=== PATIENT | female | born 1940 | race Caucasian/White ===

== ENCOUNTER 2023-05-23 12:18 | Inpatient (IN) | payer MEDICARE, OTHER, SELFPAY ==
[2023-05-23] VITALS (44 sets, daily range): BP systolic 79–132; BP diastolic 54–79; PULSE 74–98; RESP 16–44; TEMP 36–36.7; O2SAT 80–96; BMI 25.8; BMI 32.0
--- NOTE | 2023-05-23 12:31 | PC.NURSE ---
pt O2 80% on RA pt placed on 4L O2 per NC pt up92%
--- NOTE | 2023-05-23 12:37 | ECG_ITS ---
The [facility] Test Date: 2023-05-23 Pat Name: Regine Garza Department: Room: - Gender: Female Manager [place]: : 1940 Requested By: DEMARCO NORTON Order Number: [id number] Reading MD: DEMARCO NORTON Measurements Intervals [place] Rate: 85 P: 51 [place]: 136 QRS: 50 QRSD: 94 T: 10 QT: 368 QTc: 410 Interpretive Statements 1100 Sinus rhythm 1102 Sinus arrhythmia 4068 Nonspecific Twave abnormality 9130 borderline ECG No previous ECG available for comparison Electronically Signed On 05-24-2023 7:02:53 EST by DEMARCO NORTON
--- NOTE | 2023-05-23 12:37 | CT_ITS ---
The [address] [address] Patient Name: YUMI DREW MRN: [id number] date: 1940 Sex: F Assigned Patient Location: ER Current Patient Location: ER Accession/Order Number: [id number] Exam Date: 05/23/2023 13:40 Report Date: 05/23/2023 14:18 At the request of: ADAMARIS PATEL Procedure: CT head/brain wo con EXAM: CT head/brain wo con HISTORY: Fall with weakness. Unable to emboli. Coughing and wheezing. COMPARISON: None. TECHNIQUE: Contiguous transaxial images were obtained from skull base to vertex without administration of intravenous contrast. Dose reduction: mA and/or kV are were adjusted by automated exposure control software based upon patients height and weight. FINDINGS: There is no focal scalp soft tissue swelling or acute calvarial fracture. The visualized globes and orbits are grossly normal. There is extensive paranasal sinus disease with mucosal thickening, opacification of ethmoid air cells and sphenoid sinus, and sphenoid sinus air-fluid level. There is partial opacification of left mastoid air cells. Right mastoid air cells are clear. The ventricles and sulci are mildly prominent bilaterally. There is a binu cisterna magna. There is periventricular and deep subcortical white matter low-attenuation consistent with small vessel ischemic disease. There is a focus of encephalomalacia at the left posterior parietal lobe. There is also a small focus of left frontal lobe hypoattenuation/encephalomalacia. There is no intraparenchymal hemorrhage, extraaxial fluid collection, mass lesion, or acute large territory ischemia by noncontrast CT. CT/CT head/brain wo con IMPRESSION: 1. No acute intracranial hemorrhage. 2. 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 3. Small focus of of encephalomalacia at the left posterior parietal lobe. There is also a small focus of hypoattenuation/encephalomalacia at the left frontal lobe. Acute ischemia/extension of ischemia at site of encephalomalacia cannot be excluded by noncontrast CT. If clinically indicated, brain MRI may be performed for further evaluation. Correlate with clinical history and physical examination. If the patient has a focal neurologic deficit or there is clinical suspicion for acute cerebrovascular accident, brain MRI would be recommended for further evaluation. Electronically authenticated by: WILD ELLISON Date: 05/23/2023 14:18
--- NOTE | 2023-05-23 12:37 | XR_ITS ---
The [address] [address] Patient Name: YUMI DREW MRN: [id number] date: 1940 Sex: F Assigned Patient Location: ER Current Patient Location: ER Accession/Order Number: [id number] Exam Date: 05/23/2023 13:32 Report Date: 05/23/2023 14:25 At the request of: ADAMARIS PATEL Procedure: XR chest 1V EXAMINATION: XR chest 1V HISTORY: sob , coughing, wheezing COMPARISON: No relevant comparison available. FINDINGS: LUNGS: Dense confluent opacities within lateral left lung base. Mild opacities and stranding within right infrahilar region. VASCULATURE: No increased pulmonary vasculature. PLEURA: No pneumothorax, effusion, or pleural thickening. CARDIAC: No cardiomegaly or cardiac silhouette abnormality. MEDIASTINUM: No visible mass or adenopathy. BONES: No fracture or visible bone lesion. OTHER: Negative. XR/XR chest 1V IMPRESSION: 1. Mild-moderate left basilar infiltrates suggestive of pneumonia. Pleural effusion cannot be excluded. 2. Trace amount of right basilar infiltrates. Electronically authenticated by: HAROON MANLEY Date: 05/23/2023 14:25
--- NOTE | 2023-05-23 13:04 | ECG_ITS ---
The [facility] Test Date: 2023-05-23 Pat Name: Regine Garza Department: Room: - Gender: Female [employer]: : 1940 Requested By: DEMARCO NORTON Order Number: [id number] Reading MD: DEMARCO NORTON Measurements Intervals [place] Rate: 86 P: 50 [place]: 134 QRS: 56 QRSD: 92 T: 20 QT: 370 QTc: 413 Interpretive Statements 1100 Sinus rhythm 1102 Sinus arrhythmia 4068 Nonspecific Twave abnormality 9130 borderline ECG Compared to ECG 05/23/2023 12:35:30 No significant changes Electronically Signed On 05-24-2023 7:05:59 EST by DEMARCO NORTON
--- NOTE | 2023-05-23 13:12 | ED_ITS ---
Documented by User: VERA Villegas 05/23/23 14:57 HPI - General Adult General Chief complaint: Weakness Stated complaint: SHORTNESS OF BREATH/ GENERAL WEAKNESS Time Seen by Provider: 05/23/23 12:37 Mode of arrival: ambulance History of Present Illness HPI narrative: Patient is an 82-year-old female who presents to the emergency department for the evaluation of generalized weakness that began this morning on waking. She states on waking today, she did not feel as though she could get up and ambulate, she felt weak in her legs. She denies dizziness, lightheadedness, syncope. She had a fall last week after she tripped, she denies any dizziness or syncope without fall. She sustained a small area of bruising to the right groin, she denies any pain or injuries from the fall, she has been able to ambulate since that time. She denies chest pain, shortness of breath today. On EMS arrival, they noted that the patient was coughing and wheezing and they started her on oxygen by nasal cannula and a breathing treatment. Patient is resting comfortably with her eyes closed at initial interview, she has no complaints of pain, nausea. She states she has been eating and drinking without difficulty. She has not had any urinary symptoms. She takes an 81 mg aspirin daily, no other blood thinners. She denies headaches, visual changes, peripheral paresthesias. She states her legs have been swollen. Related Data Home Medications Medication Instructions Recorded Confirmed aspirin 81 mg tablet,delayed 81 mg PO DAILY 05/23/23 05/23/23 release (Adult Aspirin Regimen) atorvastatin 10 mg tablet 10 mg PO .evening 05/23/23 05/23/23 benazepril 10 mg tablet 10 mg PO DAILY 05/23/23 05/23/23 brimonidine 0.2 %-timolol 0.5 % drp ophthalmic (eye) 05/23/23 eye drops dorzolamide 2 % eye drops drp ophthalmic (eye) 05/23/23 latanoprost 0.005 % eye drops drp ophthalmic (eye) 05/23/23 Allergies Allergy/AdvReac Type Severity Reaction Status Date / Time No Known Drug Allergies Allergy Verified 05/23/23 12:34 Review of Systems ROS Constitutional Denies: fever or chills Ears, nose, mouth, and throat Denies: throat pain or nasal congestion Cardiovascular Reports: swelling of feet/ankles; Denies: chest pain Respiratory Reports: cough and wheezing; Denies: shortness of breath Gastrointestinal Denies: abdominal pain, nausea or vomiting Genitourinary Denies: painful urination Musculoskeletal Reports: extremity swelling; Denies: back pain, neck pain or extremity pain Integumentary/Breast Denies: rash Neurological Denies: headache Psychiatric Denies: anxiety [facility] Medical History Hyperlipidemia ?E78.5 - Hyperlipidemia, unspecified (ICD-10) HTN (hypertension) ?I10 - Essential (primary) hypertension (ICD-10) 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 - Blindness, one eye, unspecified eye (ICD-10) Glaucoma ?H40.9 - Unspecified glaucoma (ICD-10) Social History Highest level of school completed/degree received: high school graduate Exam Narrative Exam Narrative: Gen.: Awake, alert, in no distress, resting comfortably Head: Normocephalic, atraumatic ENT: Moist mucous membranes Respiratory: No respiratory distress, minimal dry cough noted with inspiratory and expiratory wheezing Cardio: Regular rate and rhythm Gastrointestinal: Abdomen is soft, nondistended and nontender to palpation Extremities: Weakness of the lower extremities bilaterally, 2+ pitting edema to the lower extremities. Healing ecchymosis faintly to the right anterior groin, no hip tenderness and pelvis is stable Psych: Normal mood and affect Neuro: No focal neuro deficit Skin: Warm, dry, intact Constitutional Vital Signs, click to edit/add: Last Vital Signs Temp 96.9 F L 05/23/23 19:18 Pulse 88 05/23/23 19:18 Resp 20 05/23/23 19:24 BP 103/58 05/23/23 19:18 Pulse Ox 90 L 05/23/23 19:18 O2 Del Method Nasal Cannula 05/23/23 19:18 O2 Flow Rate 4 05/23/23 19:18 Course Vital Signs Vital signs: Vital Signs Temperature 98.0 F 05/23/23 12:21 Pulse Rate 85 05/23/23 12:21 Respiratory Rate 16 05/23/23 12:21 Blood Pressure 94/61 05/23/23 12:21 Pulse Oximetry 80 L 05/23/23 12:21 Oxygen Delivery Method Room Air 05/23/23 12:21 Oxygen Delivery Flow Rate 3 05/23/23 12:21 Temperature 96.9 F L 05/23/23 19:18 Pulse Rate 88 05/23/23 19:18 Respiratory Rate 20 05/23/23 19:24 Blood Pressure 103/58 05/23/23 19:18 Pulse Oximetry 90 L 05/23/23 19:18 Oxygen Delivery Method Nasal Cannula 05/23/23 19:18 Oxygen Delivery Flow Rate 4 05/23/23 19:18 Medical Decision Making MDM Narrative Medical decision making narrative: Patient was medicated with lactated Ringer's to maintain blood pressure, her blood pressure was labile in the ER although she had no persistent hypotension. The remainder of her workup shows no significant leukocytosis or bandemia, normal troponin, normal creatinine. She does have elevated BNP, although we will avoid diuresis at this time as her chest x-ray does not show any overwhelming pulmonary edema and we would like to avoid hypotension. Chest x- ray shows multifocal pneumonia, CT of the brain shows no evidence of acute process although there is a small area of encephalomalacia that the radiologist cannot rule out possible ischemia. The patient is admitted to the hospitalist for further evaluation and treatment. IV Levaquin given for pneumonia coverage. Blood cultures are pending. Patient has a normal lactic acid and normal procalcitonin. Medical Records Medical records reviewed: Yes I reviewed the patient's medical records Lab Data Lab results reviewed: Yes I reviewed the patient's lab results Labs: Lab Results 05/23/23 05/23/23 05/23/23 Range/Units 12:50 12:50 13:00 WBC 11.4 H (4.0-11.0) 10^3/uL RBC 4.53 (4.20-5.40) 10^6/uL Hgb 13.9 (12.0-16.0) g/dL Hct 45.5 (36.0-48.0) % MCV 100.4 H (81.0-99.0) fL MCH 30.7 (26.7-34.0) pg MCHC 30.5 (29.9-35.2) g/dL RDW 13.1 (11.0-15.0) % Plt Count 335 (150-450) 10^3/uL MPV 9.4 L (9.5-13.5) fL Neut % (Auto) 80.9 H (43.0-75.0) % Lymph % (Auto) 9.1 L (20.5-60.0) % [place] % (Auto) 8.6 (1.7-12.0) % Eos % (Auto) 0.5 L (0.9-7.0) % Baso % (Auto) 0.4 (0.2-2.0) % Neut # (Auto) 9.2 H (1.4-6.5) 10^3/uL Lymph # (Auto) 1.0 L (1.2-3.8) 10^3/uL [place] # (Auto) 1.0 H (0.3-0.8) 10^3/uL Eos # (Auto) 0.1 (0.0-0.7) 10^3/uL Baso # (Auto) 0.1 (0.0-0.1) 10^3/uL Abs Immat Gran (auto) 0.06 H (0.00-0.03) 10^3/uL Imm/Tot Granulo (auto) 0.5 (0.0-0.5) % PT 10.9 (9.0-11.6) sec INR 1.03 APTT 27.3 (22.3-36.2) sec VBG pH 7.367 (7.330-7.430) VBG pCO2 66.7 H (40.0-52.0) mmHg Sodium 145 (136-145) mmol/L Potassium 4.2 (3.5-5.1) mmol/L Chloride 104 (98-107) mmol/L Carbon Dioxide 34.7 H (21.0-32.0) mmol/L Anion Gap 10.5 BUN 37.0 H (7.0-18.0) mg/dL Creatinine 0.78 (0.55-1.02) mg/dL Est GFR ( Amer) >60 (>=60) Est GFR (Non-Af Amer) >60 (>=60) BUN/Creatinine Ratio 47.4 Glucose 142 H (74-106) mg/dL Lactate (0.4-2.0) mmol/L Calcium 9.4 (8.5-10.1) mg/dL Magnesium 2.3 (1.8-2.4) mg/dL Total Bilirubin 0.4 (0.2-1.0) mg/dL AST 16 (15-37) U/L ALT 20 (14-59) U/L Alkaline Phosphatase 92 (46-116) U/L Troponin I High Sens 44.3 (4.0-51.3) pg/mL NT-Pro-B Natriuret Pep 3865.0 H* (<=1800.0) pg/mL Total Protein 6.8 (6.4-8.2) g/dL Albumin 2.3 L (3.4-5.0) g/dL Globulin 4.5 g/dL Albumin/Globulin Ratio 0.5 Procalcitonin <0.05 (0.00-0.50) ng/mL Urine Color (YELLOW) Urine Clarity (CLEAR) Urine pH (5.0-9.0) Ur Specific [place] (1.005-1.025) Urine Protein (NEG/TRACE) mg/dL Urine Glucose (UA) (NEGATIVE) mg/dL Urine Ketones (NEGATIVE) mg/dL Urine Occult Blood (NEGATIVE) Urine Nitrite (NEGATIVE) Urine Bilirubin (NEGATIVE) Urine Urobilinogen (0.2-1.0) EU/dL Ur Leukocyte Esterase (NEGATIVE) Urine RBC (0-2) #/HPF Urine WBC (NONE SEEN) #/HPF Ur Squamous Epith Cells (NONE/RARE) #/LPF Urine Crystals (None Seen) #/HPF Urine Bacteria (NONE SEEN) #/HPF Urine Casts (NONE SEEN) #/LPF Urine Mucus (NONE SEEN) Ur Culture Indicated? Adenovirus (PCR) Not detected (NOT DETECTE) C. pneumoniae DNA (PCR) Not detected (NOT DETECTE) Coronavirus Type OC43 Not detected (NOT DETECTE) Coronavirus Type HKU1 Not detected (NOT DETECTE) Coronavirus Type 229E Not detected (NOT DETECTE) SARS-CoV-2 (PCR) Negative Not detected (NEGATIVE) Coronavirus Type NL63 Not detected (NOT DETECTE) Human Metapneumovir PCR Not detected (NOT DETECTE) Influenza Type A Ag Negative Influenza Type B Ag Negative M. pneumoniae (PCR) Not detected (NOT DETECTE) Parainfluenza PCR Not detected (NOT DETECTE) Parainfluenza 2 (PCR) Not detected (NOT DETECTE) Parainfluenza 3 (PCR) Not detected (NOT DETECTE) Parainfluenza 4 (PCR) Not detected (NOT DETECTE) RSV Antigen Not detected (NOT DETECTE) RSV (RT-PCR) Not detected (NOT DETECTE) Entero/Rhino (PCR) Not detected (NOT DETECTE) SARS-CoV-2 RNA (DEBBIE) Not detected (NOT DETECTE) Bordetella pertussis (PCR) Not detected (NOT DETECTE) B parapertussis DNA PCR Not detected (NOT DETECTE) Influenza Type A (PCR) Not detected (NOT DETECTE) Influenza Type B (PCR) Not detected (NOT DETECTE) 05/23/23 05/23/23 Range/Units 13:10 14:25 WBC (4.0-11.0) 10^3/uL RBC (4.20-5.40) 10^6/uL Hgb (12.0-16.0) g/dL Hct (36.0-48.0) % MCV (81.0-99.0) fL MCH (26.7-34.0) pg MCHC (29.9-35.2) g/dL RDW (11.0-15.0) % Plt Count (150-450) 10^3/uL MPV (9.5-13.5) fL Neut % (Auto) (43.0-75.0) % Lymph % (Auto) (20.5-60.0) % [place] % (Auto) (1.7-12.0) % Eos % (Auto) (0.9-7.0) % Baso % (Auto) (0.2-2.0) % Neut # (Auto) (1.4-6.5) 10^3/uL Lymph # (Auto) (1.2-3.8) 10^3/uL [place] # (Auto) (0.3-0.8) 10^3/uL Eos # (Auto) (0.0-0.7) 10^3/uL Baso # (Auto) (0.0-0.1) 10^3/uL Abs Immat Gran (auto) (0.00-0.03) 10^3/uL Imm/Tot Granulo (auto) (0.0-0.5) % PT (9.0-11.6) sec INR APTT (22.3-36.2) sec VBG pH (7.330-7.430) VBG pCO2 (40.0-52.0) mmHg Sodium (136-145) mmol/L Potassium (3.5-5.1) mmol/L Chloride (98-107) mmol/L Carbon Dioxide (21.0-32.0) mmol/L Anion Gap BUN (7.0-18.0) mg/dL Creatinine (0.55-1.02) mg/dL Est GFR ( Amer) (>=60) Est GFR (Non-Af Amer) (>=60) BUN/Creatinine Ratio Glucose (74-106) mg/dL Lactate 1.4 (0.4-2.0) mmol/L Calcium (8.5-10.1) mg/dL Magnesium (1.8-2.4) mg/dL Total Bilirubin (0.2-1.0) mg/dL AST (15-37) U/L ALT (14-59) U/L Alkaline Phosphatase (46-116) U/L Troponin I High Sens (4.0-51.3) pg/mL NT-Pro-B Natriuret Pep (<=1800.0) pg/mL Total Protein (6.4-8.2) g/dL Albumin (3.4-5.0) g/dL Globulin g/dL Albumin/Globulin Ratio Procalcitonin (0.00-0.50) ng/mL Urine Color Lt. yellow (YELLOW) Urine Clarity Slightly cloudy A (CLEAR) Urine pH 6.0 (5.0-9.0) Ur Specific [place] 1.020 (1.005-1.025) Urine Protein Negative (NEG/TRACE) mg/dL Urine Glucose (UA) Negative (NEGATIVE) mg/dL Urine Ketones Negative (NEGATIVE) mg/dL Urine Occult Blood Negative (NEGATIVE) Urine Nitrite Negative (NEGATIVE) Urine Bilirubin Negative (NEGATIVE) Urine Urobilinogen 4.0 A (0.2-1.0) EU/dL Ur Leukocyte Esterase Small A (NEGATIVE) Urine RBC None seen (0-2) #/HPF Urine WBC 10-20 A (NONE SEEN) #/HPF Ur Squamous Epith Cells Rare (NONE/RARE) #/LPF Urine Crystals None seen (None Seen) #/HPF Urine Bacteria Moderate A (NONE SEEN) #/HPF Urine Casts None seen (NONE SEEN) #/LPF Urine Mucus None seen (NONE SEEN) Ur Culture Indicated? Yes Adenovirus (PCR) (NOT DETECTE) C. pneumoniae DNA (PCR) (NOT DETECTE) Coronavirus Type OC43 (NOT DETECTE) Coronavirus Type HKU1 (NOT DETECTE) Coronavirus Type 229E (NOT DETECTE) SARS-CoV-2 (PCR) (NEGATIVE) Coronavirus Type NL63 (NOT DETECTE) Human Metapneumovir PCR (NOT DETECTE) Influenza Type A Ag Influenza Type B Ag M. pneumoniae (PCR) (NOT DETECTE) Parainfluenza PCR (NOT DETECTE) Parainfluenza 2 (PCR) (NOT DETECTE) Parainfluenza 3 (PCR) (NOT DETECTE) Parainfluenza 4 (PCR) (NOT DETECTE) RSV Antigen (NOT DETECTE) RSV (RT-PCR) (NOT DETECTE) Entero/Rhino (PCR) (NOT DETECTE) SARS-CoV-2 RNA (DEBBIE) (NOT DETECTE) Bordetella pertussis (PCR) (NOT DETECTE) B parapertussis DNA PCR (NOT DETECTE) Influenza Type A (PCR) (NOT DETECTE) Influenza Type B (PCR) (NOT DETECTE) Imaging Data CT scan - head: Attestation: I have reviewed the pertinent imaging results. Radiologist's impression: Procedure: CT head/brain wo con EXAM: CT head/brain wo con HISTORY: Fall with weakness. Unable to emboli. Coughing and wheezing. COMPARISON: None. TECHNIQUE: Contiguous transaxial images were obtained from skull base to vertex without administration of intravenous contrast. Dose reduction: mA and/or kV are were adjusted by automated exposure control software based upon patients height and weight. FINDINGS: There is no focal scalp soft tissue swelling or acute calvarial fracture. The visualized globes and orbits are grossly normal. There is extensive paranasal sinus disease with mucosal thickening, opacification of ethmoid air cells and sphenoid sinus, and sphenoid sinus air-fluid level. There is partial opacification of left mastoid air cells. Right mastoid air cells are clear. The ventricles and sulci are mildly prominent bilaterally. There is a binu cisterna magna. There is periventricular and deep subcortical white matter low-attenuation consistent with small vessel ischemic disease. There is a focus of encephalomalacia at the left posterior parietal lobe. There is also a small focus of left frontal lobe hypoattenuation/encephalomalacia. There is no intraparenchymal hemorrhage, extraaxial fluid collection, mass lesion, or acute large territory ischemia by noncontrast CT. IMPRESSION: 1. No acute intracranial hemorrhage. 2. 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 3. Small focus of of encephalomalacia at the left posterior parietal lobe. There is also a small focus of hypoattenuation/encephalomalacia at the left frontal lobe. Acute ischemia/extension of ischemia at site of encephalomalacia cannot be excluded by noncontrast CT. If clinically indicated, brain MRI may be performed for further evaluation. Correlate with clinical history and physical examination. If the patient has a focal neurologic deficit or there is clinical suspicion for acute cerebrovascular accident, brain MRI would be recommended for further evaluation. Electronically authenticated by: WILD ELLISON Date: 05/23/2023 14:18 Chest x-ray: Attestation: I have reviewed the pertinent imaging results. Radiologist's impression: Procedure: XR chest 1V EXAMINATION: XR chest 1V HISTORY: sob , coughing, wheezing COMPARISON: No relevant comparison available. FINDINGS: LUNGS: Dense confluent opacities within lateral left lung base. Mild opacities and stranding within right infrahilar region. VASCULATURE: No increased pulmonary vasculature. PLEURA: No pneumothorax, effusion, or pleural thickening. CARDIAC: No cardiomegaly or cardiac silhouette abnormality. MEDIASTINUM: No visible mass or adenopathy. BONES: No fracture or visible bone lesion. OTHER: Negative. IMPRESSION: 1. Mild-moderate left basilar infiltrates suggestive of pneumonia. Pleural effusion cannot be excluded. 2. Trace amount of right basilar infiltrates. Electronically authenticated by: HAROON MANLEY Date: 05/23/2023 14:25 ECG Data Attestation: I personally reviewed and interpreted this ECG as follows: (Normal sinus rhythm at a rate of 85, sinus arrhythmia with no acute ST elevation or ectopy. EKG reviewed by attending physician.) Discharge Plan Discharge Chief Complaint: Weakness Clinical Impression: Community acquired pneumonia, Dehydration, Weakness Patient Disposition: Admitted As Inpatient Time of Disposition Decision: 14:51 Condition: Good Discharge Date/Time: 05/23/23 15:36 Documented by User: Tobias Vergara MD 05/23/23 20:02 HPI - General Adult General Chief complaint: Weakness Stated complaint: SHORTNESS OF BREATH/ GENERAL WEAKNESS Time Seen by Provider: 05/23/23 12:37 Related Data Home Medications Medication Instructions Recorded Confirmed aspirin 81 mg tablet,delayed 81 mg PO DAILY 05/23/23 05/23/23 release (Adult Aspirin Regimen) atorvastatin 10 mg tablet 10 mg PO .evening 05/23/23 05/23/23 benazepril 10 mg tablet 10 mg PO DAILY 05/23/23 05/23/23 brimonidine 0.2 %-timolol 0.5 % drp ophthalmic (eye) 05/23/23 eye drops dorzolamide 2 % eye drops drp ophthalmic (eye) 05/23/23 latanoprost 0.005 % eye drops drp ophthalmic (eye) 05/23/23 Allergies Allergy/AdvReac Type Severity Reaction Status Date / Time No Known Drug Allergies Allergy Verified 05/23/23 12:34 PFSH PFS Medical History Hyperlipidemia ?E78.5 - Hyperlipidemia, unspecified (ICD-10) HTN (hypertension) ?I10 - Essential (primary) hypertension (ICD-10) 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 - Blindness, one eye, unspecified eye (ICD-10) Glaucoma ?H40.9 - Unspecified glaucoma (ICD-10) Social History Highest level of school completed/degree received: high school graduate Exam Constitutional Vital Signs, click to edit/add: Last Vital Signs Temp 96.9 F L 05/23/23 19:18 Pulse 88 05/23/23 19:18 Resp 20 05/23/23 19:24 BP 103/58 05/23/23 19:18 Pulse Ox 90 L 05/23/23 19:18 O2 Del Method Nasal Cannula 05/23/23 19:18 O2 Flow Rate 4 05/23/23 19:18 Course Vital Signs Vital signs: Vital Signs Temperature 98.0 F 05/23/23 12:21 Pulse Rate 85 05/23/23 12:21 Respiratory Rate 16 05/23/23 12:21 Blood Pressure 94/61 05/23/23 12:21 Pulse Oximetry 80 L 05/23/23 12:21 Oxygen Delivery Method Room Air 05/23/23 12:21 Oxygen Delivery Flow Rate 3 05/23/23 12:21 Temperature 96.9 F L 05/23/23 19:18 Pulse Rate 88 05/23/23 19:18 Respiratory Rate 20 05/23/23 19:24 Blood Pressure 103/58 05/23/23 19:18 Pulse Oximetry 90 L 05/23/23 19:18 Oxygen Delivery Method Nasal Cannula 05/23/23 19:18 Oxygen Delivery Flow Rate 4 05/23/23 19:18 Medical Decision Making MDM Narrative Medical decision making narrative: Patient was medicated with lactated Ringer's to maintain blood pressure, her blood pressure was labile in the ER although she had no persistent hypotension. The remainder of her workup shows no significant leukocytosis or bandemia, normal troponin, normal creatinine. She does have elevated BNP, although we will avoid diuresis at this time as her chest x-ray does not show any ove rwhelming pulmonary edema and we would like to avoid hypotension. Chest x-ray shows multifocal pneumonia, CT of the brain shows no evidence of acute process although there is a small area of encephalomalacia that the radiologist cannot rule out possible ischemia. The patient is admitted to the hospitalist for further evaluation and treatment. IV Levaquin given for pneumonia coverage. Blood cultures are pending. Patient has a normal lactic acid and normal procalcitonin. I, Dr Vergara, have reviewed the above progress note and course of action in the ER; agree with the above. I have personally seen and evaluated this patient, gone over history and physical, and discussed disposition and treatment plan with the patient. Lab Data Labs: Lab Results 05/23/23 05/23/23 05/23/23 Range/Units 12:50 12:50 13:00 WBC 11.4 H (4.0-11.0) 10^3/uL RBC 4.53 (4.20-5.40) 10^6/uL Hgb 13.9 (12.0-16.0) g/dL Hct 45.5 (36.0-48.0) % MCV 100.4 H (81.0-99.0) fL MCH 30.7 (26.7-34.0) pg MCHC 30.5 (29.9-35.2) g/dL RDW 13.1 (11.0-15.0) % Plt Count 335 (150-450) 10^3/uL MPV 9.4 L (9.5-13.5) fL Neut % (Auto) 80.9 H (43.0-75.0) % Lymph % (Auto) 9.1 L (20.5-60.0) % [place] % (Auto) 8.6 (1.7-12.0) % Eos % (Auto) 0.5 L (0.9-7.0) % Baso % (Auto) 0.4 (0.2-2.0) % Neut # (Auto) 9.2 H (1.4-6.5) 10^3/uL Lymph # (Auto) 1.0 L (1.2-3.8) 10^3/uL [place] # (Auto) 1.0 H (0.3-0.8) 10^3/uL Eos # (Auto) 0.1 (0.0-0.7) 10^3/uL Baso # (Auto) 0.1 (0.0-0.1) 10^3/uL Abs Immat Gran (auto) 0.06 H (0.00-0.03) 10^3/uL Imm/Tot Granulo (auto) 0.5 (0.0-0.5) % PT 10.9 (9.0-11.6) sec INR 1.03 APTT 27.3 (22.3-36.2) sec VBG pH 7.367 (7.330-7.430) VBG pCO2 66.7 H (40.0-52.0) mmHg Sodium 145 (136-145) mmol/L Potassium 4.2 (3.5-5.1) mmol/L Chloride 104 (98-107) mmol/L Carbon Dioxide 34.7 H (21.0-32.0) mmol/L Anion Gap 10.5 BUN 37.0 H (7.0-18.0) mg/dL Creatinine 0.78 (0.55-1.02) mg/dL Est GFR ( Amer) >60 (>=60) Est GFR (Non-Af Amer) >60 (>=60) BUN/Creatinine Ratio 47.4 Glucose 142 H (74-106) mg/dL Lactate (0.4-2.0) mmol/L Calcium 9.4 (8.5-10.1) mg/dL Magnesium 2.3 (1.8-2.4) mg/dL Total Bilirubin 0.4 (0.2-1.0) mg/dL AST 16 (15-37) U/L ALT 20 (14-59) U/L Alkaline Phosphatase 92 (46-116) U/L Troponin I High Sens 44.3 (4.0-51.3) pg/mL NT-Pro-B Natriuret Pep 3865.0 H* (<=1800.0) pg/mL Total Protein 6.8 (6.4-8.2) g/dL Albumin 2.3 L (3.4-5.0) g/dL Globulin 4.5 g/dL Albumin/Globulin Ratio 0.5 Procalcitonin <0.05 (0.00-0.50) ng/mL Urine Color (YELLOW) Urine Clarity (CLEAR) Urine pH (5.0-9.0) Ur Specific [place] (1.005-1.025) Urine Protein (NEG/TRACE) mg/dL Urine Glucose (UA) (NEGATIVE) mg/dL Urine Ketones (NEGATIVE) mg/dL Urine Occult Blood (NEGATIVE) Urine Nitrite (NEGATIVE) Urine Bilirubin (NEGATIVE) Urine Urobilinogen (0.2-1.0) EU/dL Ur Leukocyte Esterase (NEGATIVE) Urine RBC (0-2) #/HPF Urine WBC (NONE SEEN) #/HPF Ur Squamous Epith Cells (NONE/RARE) #/LPF Urine Crystals (None Seen) #/HPF Urine Bacteria (NONE SEEN) #/HPF Urine Casts (NONE SEEN) #/LPF Urine Mucus (NONE SEEN) Ur Culture Indicated? Adenovirus (PCR) Not detected (NOT DETECTE) C. pneumoniae DNA (PCR) Not detected (NOT DETECTE) Coronavirus Type OC43 Not detected (NOT DETECTE) Coronavirus Type HKU1 Not detected (NOT DETECTE) Coronavirus Type 229E Not detected (NOT DETECTE) SARS-CoV-2 (PCR) Negative Not detected (NEGATIVE) Coronavirus Type NL63 Not detected (NOT DETECTE) Human Metapneumovir PCR Not detected (NOT DETECTE) Influenza Type A Ag Negative Influenza Type B Ag Negative M. pneumoniae (PCR) Not detected (NOT DETECTE) Parainfluenza PCR Not detected (NOT DETECTE) Parainfluenza 2 (PCR) Not detected (NOT DETECTE) Parainfluenza 3 (PCR) Not detected (NOT DETECTE) Parainfluenza 4 (PCR) Not detected (NOT DETECTE) RSV Antigen Not detected (NOT DETECTE) RSV (RT-PCR) Not detected (NOT DETECTE) Entero/Rhino (PCR) Not detected (NOT DETECTE) SARS-CoV-2 RNA (DEBBIE) Not detected (NOT DETECTE) Bordetella pertussis (PCR) Not detected (NOT DETECTE) B parapertussis DNA PCR Not detected (NOT DETECTE) Influenza Type A (PCR) Not detected (NOT DETECTE) Influenza Type B (PCR) Not detected (NOT DETECTE) 05/23/23 05/23/23 Range/Units 13:10 14:25 WBC (4.0-11.0) 10^3/uL RBC (4.20-5.40) 10^6/uL Hgb (12.0-16.0) g/dL Hct (36.0-48.0) % MCV (81.0-99.0) fL MCH (26.7-34.0) pg MCHC (29.9-35.2) g/dL RDW (11.0-15.0) % Plt Count (150-450) 10^3/uL MPV (9.5-13.5) fL Neut % (Auto) (43.0-75.0) % Lymph % (Auto) (20.5-60.0) % [place] % (Auto) (1.7-12.0) % Eos % (Auto) (0.9-7.0) % Baso % (Auto) (0.2-2.0) % Neut # (Auto) (1.4-6.5) 10^3/uL Lymph # (Auto) (1.2-3.8) 10^3/uL [place] # (Auto) (0.3-0.8) 10^3/uL Eos # (Auto) (0.0-0.7) 10^3/uL Baso # (Auto) (0.0-0.1) 10^3/uL Abs Immat Gran (auto) (0.00-0.03) 10^3/uL Imm/Tot Granulo (auto) (0.0-0.5) % PT (9.0-11.6) sec INR APTT (22.3-36.2) sec VBG pH (7.330-7.430) VBG pCO2 (40.0-52.0) mmHg Sodium (136-145) mmol/L Potassium (3.5-5.1) mmol/L Chloride (98-107) mmol/L Carbon Dioxide (21.0-32.0) mmol/L Anion Gap BUN (7.0-18.0) mg/dL Creatinine (0.55-1.02) mg/dL Est GFR ( Amer) (>=60) Est GFR (Non-Af Amer) (>=60) BUN/Creatinine Ratio Glucose (74-106) mg/dL Lactate 1.4 (0.4-2.0) mmol/L Calcium (8.5-10.1) mg/dL Magnesium (1.8-2.4) mg/dL Total Bilirubin (0.2-1.0) mg/dL AST (15-37) U/L ALT (14-59) U/L Alkaline Phosphatase (46-116) U/L Troponin I High Sens (4.0-51.3) pg/mL NT-Pro-B Natriuret Pep (<=1800.0) pg/mL Total Protein (6.4-8.2) g/dL Albumin (3.4-5.0) g/dL Globulin g/dL Albumin/Globulin Ratio Procalcitonin (0.00-0.50) ng/mL Urine Color Lt. yellow (YELLOW) Urine Clarity Slightly cloudy A (CLEAR) Urine pH 6.0 (5.0-9.0) Ur Specific [place] 1.020 (1.005-1.025) Urine Protein Negative (NEG/TRACE) mg/dL Urine Glucose (UA) Negative (NEGATIVE) mg/dL Urine Ketones Negative (NEGATIVE) mg/dL Urine Occult Blood Negative (NEGATIVE) Urine Nitrite Negative (NEGATIVE) Urine Bilirubin Negative (NEGATIVE) Urine Urobilinogen 4.0 A (0.2-1.0) EU/dL Ur Leukocyte Esterase Small A (NEGATIVE) Urine RBC None seen (0-2) #/HPF Urine WBC 10-20 A (NONE SEEN) #/HPF Ur Squamous Epith Cells Rare (NONE/RARE) #/LPF Urine Crystals None seen (None Seen) #/HPF Urine Bacteria Moderate A (NONE SEEN) #/HPF Urine Casts None seen (NONE SEEN) #/LPF Urine Mucus None seen (NONE SEEN) Ur Culture Indicated? Yes Adenovirus (PCR) (NOT DETECTE) C. pneumoniae DNA (PCR) (NOT DETECTE) Coronavirus Type OC43 (NOT DETECTE) Coronavirus Type HKU1 (NOT DETECTE) Coronavirus Type 229E (NOT DETECTE) SARS-CoV-2 (PCR) (NEGATIVE) Coronavirus Type NL63 (NOT DETECTE) Human Metapneumovir PCR (NOT DETECTE) Influenza Type A Ag Influenza Type B Ag M. pneumoniae (PCR) (NOT DETECTE) Parainfluenza PCR (NOT DETECTE) Parainfluenza 2 (PCR) (NOT DETECTE) Parainfluenza 3 (PCR) (NOT DETECTE) Parainfluenza 4 (PCR) (NOT DETECTE) RSV Antigen (NOT DETECTE) RSV (RT-PCR) (NOT DETECTE) Entero/Rhino (PCR) (NOT DETECTE) SARS-CoV-2 RNA (DEBBIE) (NOT DETECTE) Bordetella pertussis (PCR) (NOT DETECTE) B parapertussis DNA PCR (NOT DETECTE) Influenza Type A (PCR) (NOT DETECTE) Influenza Type B (PCR) (NOT DETECTE) Discharge Plan Discharge Chief Complaint: Weakness Clinical Impression: Community acquired pneumonia, Dehydration, Weakness Patient Disposition: Admitted As Inpatient Time of Disposition Decision: 14:51 Condition: Good Discharge Date/Time: 05/23/23 15:36
[2023-05-23 13:19] LABS: PCO2 VBG 66.7 mmHg (40.0-52.0); pH VBG 7.367 (7.330-7.430)
[2023-05-23 13:21] LABS: Basophils Absolute Auto 0.1 10^3/uL (0.0-0.1); Basophils Percent Auto 0.4 % (0.2-2.0); Eosinophils Absolute Auto 0.1 10^3/uL (0.0-0.7); Eosinophils Percent Auto 0.5 % (0.9-7.0); Hematocrit 45.5 % (36.0-48.0); Hemoglobin 13.9 g/dL (12.0-16.0); Immature Granulocytes Abs Auto 0.06 10^3/uL (0.00-0.03); Immature Granulocytes Pct Auto 0.5 % (0.0-0.5); Lymphocytes Percent Auto 9.1 % (20.5-60.0); Mean Corpuscular HGB Conc 30.5 g/dL (29.9-35.2); Mean Corpuscular Hemoglobin 30.7 pg (26.7-34.0); Mean Corpuscular Volume 100.4 fL (81.0-99.0); Mean Platelet Volume 9.4 fL (9.5-13.5); Monocytes Percent Auto 8.6 % (1.7-12.0); Neutrophils Absolute Auto 9.2 10^3/uL (1.4-6.5); Neutrophils Percent Auto 80.9 % (43.0-75.0); Platelet Count 335 10^3/uL (150-450); Red Blood Count 4.53 10^6/uL (4.20-5.40); Red Cell Distribution Width 13.1 % (11.0-15.0); White Blood Count 11.4 10^3/uL (4.0-11.0)
[2023-05-23 13:36] LABS: Lactate/Lactic Acid 1.4 mmol/L (0.4-2.0)
[2023-05-23 13:43] LABS: Influenza Virus A Antigen Negative; Influenza Virus B Antigen Negative; Internal Control Within Normal Limits; Respiratory Syncytial Virus Not Detected (NOT DETECTE); SARS-CoV-2 Ag NEGATIVE (NEGATIVE)
[2023-05-23 13:51] LABS: INR 1.03; Partial Thromboplastin Time 27.3 sec (22.3-36.2); Prothrombin Time 10.9 sec (9.0-11.6)
[2023-05-23 13:55] LABS: Alanine Aminotransferase 20 U/L (14-59); Albumin Globulin Ratio 0.5; Albumin Level 2.3 g/dL (3.4-5.0); Alkaline Phosphatase 92 U/L (46-116); Anion Gap 10.5; Aspartate Amino Transferase 16 U/L (15-37); BUN Creatinine Ratio 47.4; Bilirubin Total 0.4 mg/dL (0.2-1.0); Calcium 9.4 mg/dL (8.5-10.1); Carbon Dioxide 34.7 mmol/L (21.0-32.0); Chloride 104 mmol/L (98-107); Estimated GFR (African America >60 (>=60); Estimated GFR (Non-African Ame >60 (>=60); Globulin 4.5 g/dL; Glucose 142 mg/dL (74-106); Magnesium 2.3 mg/dL (1.8-2.4); Potassium 4.2 mmol/L (3.5-5.1); Sodium 145 mmol/L (136-145); Total Protein 6.8 g/dL (6.4-8.2); Troponin I High Sensitivity 44.3 pg/mL (4.0-51.3)
--- NOTE | 2023-05-23 14:15 | PC.NURSE ---
VERA Veras notified of low BP.
[2023-05-23 14:31] LABS: PROCALCITONIN <0.05 ng/mL (0.00-0.50)
[2023-05-23 14:40] LABS: Bilirubin Urine NEGATIVE (NEGATIVE); Blood Urine NEGATIVE (NEGATIVE); Color Urine LT. YELLOW (YELLOW); Glucose Urine UA NEGATIVE (NEGATIVE); Ketones Urine NEGATIVE (NEGATIVE); Leukocyte Esterase Urine SMALL (NEGATIVE); Nitrite Urine NEGATIVE (NEGATIVE); Protein Urine NEGATIVE (NEG/TRACE)
[2023-05-23 14:41] LABS: Clarity Urine SLIGHTLY CLOUDY (CLEAR); Urine Microscopic Indicated YES
[2023-05-23 14:45] LABS: Bacteria Urine MODERATE #/HPF (NONE SEEN); Mucus Urine NONE SEEN (NONE SEEN); RBC Urine NONE SEEN #/HPF (0-2); Squamous Epithelial Cell Urine RARE #/LPF (NONE/RARE)
[2023-05-23 14:46] LABS: Cast Seen? NONE SEEN #/LPF (NONE SEEN); Crystals Seen? None Seen #/HPF (None Seen); Urine Culture Indicated YES
[2023-05-23] MEDS: LEVOFLOXACIN IN DEXTROSE 5 % 750 MG/150 ML IV.SOLN 100 MG IV (14:54)
--- NOTE | 2023-05-23 15:17 | P.HP_ITS ---
<Statement entered by Joann Hylton, - 05/23/23 17:47> This documentation has been reviewed and approved. I have also seen and evaluated patient at the time of admission. I agree with the above findings and plan. H&P: HPI History of Present Illness Chief complaint: MULTIFOCAL PNEUMONIA Narrative: 05/23/23 1525 This is an 82-year-old female patient with a past medical history as outlined below including hypertension, glaucoma, and hyperlipidemia; who presented to the ED because she was unable to get out of bed this morning due to generalized weakness stating my legs would not work . She admits to 3 days of nonproductive cough and shortness of breath but did not note any fever. She denies dysuria or increased urinary frequency, but does note foul-smelling urine recently. Workup in the ED revealed mild leukocytosis (11.4), positive UA, moderately elevated BNP (3,865). Lactic acid was normal at 1.4 and a procalcitonin was unremarkable. Chest x-ray revealed mild to moderate left lower lobe infiltrate and a small right lower lobe infiltrate. EKG reveals sinus rhythm with some sinus arrhythmia. A CT of the head was negative for acute intercranial abnormality. The patient was also found to be hypoxic on arrival with an O2 sat of 80% on room air and she was hypotensive with blood pressure down to 80s/50s. Despite this low blood pressure the patient is awake and alert and oriented and denies any dizziness. She is being admitted to the hospitalist service as a inpatient for multifocal pneumonia, acute respiratory failure, UTI, and hypotension with risk of sepsis. At the time of my exam the patient is resting comfortably on the cart in the ED. She admits to cough and shortness of breath, but continues to deny fever. She has noted to have injected conjunctive a with purulent discharge of the right eye. 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 She does not appear in respiratory distress and continues to deny dizziness. Her mucous membranes appear moderately dry and a fluid bolus is infusing at the time of my exam. Although her blood pressure is soft she remains stable for the medical floor at this time. Review of Systems ROS Status of ROS 10 or more systems reviewed and unremark able except as noted in history and below [facility] Medical History Hyperlipidemia ?E78.5 - Hyperlipidemia, unspecified (ICD-10) HTN (hypertension) ?I10 - Essential (primary) hypertension (ICD-10) 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 - Blindness, one eye, unspecified eye (ICD-10) Glaucoma ?H40.9 - Unspecified glaucoma (ICD-10) Social History Highest level of school completed/degree received: high school graduate Meds Home Medications and Allergies Home Medications Medication Instructions Recorded Confirmed Type aspirin 81 mg tablet,delayed 81 mg PO DAILY 05/23/23 05/23/23 History release (Adult Aspirin Regimen) atorvastatin 10 mg tablet 10 mg PO .evening 05/23/23 05/23/23 History benazepril 10 mg tablet 10 mg PO DAILY 05/23/23 05/23/23 History brimonidine 0.2 %-timolol 0.5 % drp ophthalmic (eye) 05/23/23 History eye drops dorzolamide 2 % eye drops drp ophthalmic (eye) 05/23/23 History latanoprost 0.005 % eye drops drp ophthalmic (eye) 05/23/23 History Allergies Allergy/AdvReac Type Severity Reaction Status Date / Time No Known Drug Allergies Allergy Verified 05/23/23 12:34 Exam Constitutional Vital Signs, click to edit/add: Last Vital Signs Temp 98.0 F 05/23/23 12:21 Pulse 79 05/23/23 15:13 Resp 28 H 05/23/23 15:13 BP 97/55 05/23/23 15:13 Pulse Ox 90 L 05/23/23 15:13 O2 Del Method Nasal Cannula 05/23/23 12:56 O2 Flow Rate 4 05/23/23 14:07 Common normals: no apparent distress, oriented x3, alert and well nourished General appearance: cooperative Orientation/consciousness: Yes awake [facility] Common normals: normocephalic, head/scalp atraumatic, hearing grossly normal bilaterally and external nose normal Head and scalp: normocephalic and atraumatic Eye Common normals: PERRL, EOMs intact bilaterally and no scleral icterus General eye: other (L corneal leukoma) Conjunctiva: conjunctiva abnormal right (Injected, purulent discharge) Neck & C-Spine Common normals: full ROM, supple and no JVD Chest Common normals: inspection of chest normal Chest: symmetrical chest wall rise Respiratory Common normals: normal respiratory effort, no retractions and no use of accessory muscles Effort & inspection: able to speak in complete sentences Auscultation: rales (LLL), wheezes (Faint, scattered BUL) and diminished lung sounds (RLL) Cardio Common normals: no JVD, regular rate, regular rhythm, S1 normal heart sound, S2 normal heart sound, no gallops, no clicks, no rub and peripheral pulses 2+ throughout Heart sounds: murmur (HSM 3/6) GI Common normals: Normal to inspection, nondistended, normoactive bowel sounds present, soft to palpation, non-tender, no hepatosplenomegaly, no masses and no bruits Bladder/kidney exam: bladder normal to palpation Extremity Common normals: normal capillary refill General: normal exam except as noted, edema (1-2+ BLE knees to insteps) and other findings (Venous stasis dermatitis); no clubbing and no cyanosis Neuro [place] Coma Scale: GCS not evaluated Common normals: CN's II-XII intact bilaterally, moves all extremities, no focal motor deficits and no sensory deficits noted Speech: speech normal Motor exam: strength 5/5 throughout Psych Common normals: mental status grossly normal, thought process normal, affect normal and activity/motor behavior normal Results Labs Labs: Short CBC 05/23/23 Range/Units 13:00 WBC 11.4 H (4.0-11.0) 10^3/uL Hgb 13.9 (12.0-16.0) g/dL Hct 45.5 (36.0-48.0) % Plt Count 335 (150-450) 10^3/uL BMP 05/23/23 13:00 Sodium 145 Potassium 4.2 Chloride 104 Carbon Dioxide 34.7 H BUN 37.0 H Creatinine 0.78 Glucose 142 H Calcium 9.4 Liver Function 05/23/23 Range/Units 13:00 Total Bilirubin 0.4 (0.2-1.0) mg/dL AST 16 (15-37) U/L ALT 20 (14-59) U/L Alkaline Phosphatase 92 (46-116) U/L Albumin 2.3 L (3.4-5.0) g/dL Urine 05/23/23 Range/Units 14:25 Urine Color Lt. yellow (YELLOW) Urine Clarity Slightly cloudy A (CLEAR) Urine pH 6.0 (5.0-9.0) Ur Specific [place] 1.020 (1.005-1.025) Urine Protein Negative (NEG/TRACE) mg/dL Urine Glucose (UA) Negative (NEGATIVE) mg/dL ABG ABG results: 05/23/23 13:00 VBG pH 7.367 VBG pCO2 66.7 H Pulse Oximetry Attestation: I have reviewed the pertinent pulse oximetry results. ECG Attestation: ?I have reviewed the pertinent ECG results. Interpretation: Impression: Sinus rhythm Sinus arrhythmia Nonspecific T wave abnormality Borderline ECG Imaging Chest x-ray: Radiologist's impression: IMPRESSION: 1. Mild-moderate left basilar infiltrates suggestive of pneumonia. Pleural effusion cannot be excluded. 2. Trace amount of right basilar infiltrates. CT scan - head: Attestation: I have reviewed the pertinent imaging results. Radiologist's impression: IMPRESSION: 1. No acute intracranial hemorrhage. 2. 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 3. Small focus of of encephalomalacia at the left posterior parietal lobe. There is also a small focus of hypoattenuation/encephalomalacia at the left frontal lobe. Acute ischemia/extension of ischemia at site of encephalomalacia cannot be excluded by noncontrast CT. If clinically indicated, brain MRI may be performed for further evaluation. Correlate with clinical history and physical examination. If the patient has a focal neurologic deficit or there is clinical suspicion for acute cerebrovascular accident, brain MRI would be recommended for further evaluation. Assessment and Plan Assessment and Plan (1) Sepsis: Assessment and Plan: ACUTE * Adm inpatient * AEB: * SEP3 Criteria: qSOFA of 2 (SBP 79, RR 44), SOFA of 3 (P/F ratio 177, MAP <70), Source - multifocal Pneumonia and UTI * Pt mildly lethargic but awake and oriented * 30 ml/kg bolus initiated in the ED * Gentle IVF at 75/hr after bolus is completed (Peripheral edema, elevated BNP gives concern for Ac CHF) * Low threshold to increase IVF rate or give additional boluses pending clinical course * Lactic Acid and PCT WNL - ameliorates sepsis concerns to some extent * BC x 2 obtained in ED - pending * CBC, CMP in AM (2) Community acquired pneumonia: Assessment and Plan: ACUTE * Multifocal infiltrates on CXR w/ hypoxia * IVPB Rocephin and azithromycin daily * Duonebs q4h PRN * Guaifenisen BID and OPEP for sputum mobilization * VS q4h x 24 hrs, then resume standard VS - at risk for sepsis * CBC, CMP in AM (3) Acute respiratory failure with hypoxemia: Assessment and Plan: ACUTE * O2 sat 80% on RA w/ tachypnea up to 40 bpm on arrival * 2/2 multifocal PNA * O2 to keep sats above 90% * Currently requiring 4 liters * At risk for fluid overload w/ elevated BNP and peripheral edema w/ concurrent sepsis/hypotension requiring IVF administration * No pulmonary edema noted on CXR * Monitor fluid status closely * Daily weights, strict I&O (4) UTI (urinary tract infection): Assessment and Plan: ACUTE * UA positive for UTI in ED - culture pending * IVPB Rocephin (5) Hypotension: Assessment and Plan: ACUTE * BP down to 79/60 in the ED * 30 ml/kg bolus given in ED * Responded adequately to IVF administration but soft BPs persist * Hold home benazepril for now * VS q4h x 24 hrs to monitor (6) Dehydration: Assessment and Plan: ACUTE * Clinical dehydration on exam * Continue IVF at 75/hr after bolus is completed for gentle hydration (7) Weakness: Assessment and Plan: ACUTE * 2/2 acute infections/hypoxia * PT/OT consults for eval and treat (8) Conjunctivitis: Assessment and Plan: ACUTE * Sulfacetamide OP gtts q3h (9) Peripheral edema: Assessment and Plan: ACUTE ON CHRONIC * Baseline venous stasis dermatitis and waxing/waning edema * Edema reportedly increased x 2 days * Pt is not on diuretics at baseline * STARR hose * Daily weights, strict I&O * Consider diuretics pending clinical course once hypotension resolves (10) Glaucoma: Assessment and Plan: CHRONIC * Continue home glaucoma eye gtts * 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
[2023-05-23 15:42] LABS: SARS-CoV-2 NAA NOT DETECTED (NOT DETECTE)
[2023-05-23] MEDS: LACTATED RINGER'S SOLUTION 1,000 ML 50 ML IV (16:20)
[2023-05-23] MEDS: AZITHROMYCIN 500 MG in 0.9 % SODIUM CHLORIDE 250 ML 250 MG IV (16:21)
[2023-05-23] MEDS: ENOXAPARIN SODIUM 40 MG/0.4 ML SYRINGE SUBQ (16:21)
[2023-05-23 16:25] LABS: Adenovirus NOT DETECTED (NOT DETECTE); Bordetella parapertussis NOT DETECTED (NOT DETECTE); Coronavirus 229E NOT DETECTED (NOT DETECTE); Coronavirus HKU1 NOT DETECTED (NOT DETECTE); Coronavirus NL63 NOT DETECTED (NOT DETECTE); Coronavirus OC43 NOT DETECTED (NOT DETECTE); Human Metapneumovirus NOT DETECTED (NOT DETECTE); Human Rhinovirus/Enterovirus NOT DETECTED (NOT DETECTE); Influenza A NOT DETECTED (NOT DETECTE); Influenza B NOT DETECTED (NOT DETECTE); Mycoplasma pneumoniae NOT DETECTED (NOT DETECTE); Parainfluenza Virus 1 NOT DETECTED (NOT DETECTE); Parainfluenza Virus 2 NOT DETECTED (NOT DETECTE); Parainfluenza Virus 3 NOT DETECTED (NOT DETECTE); Parainfluenza Virus 4 NOT DETECTED (NOT DETECTE); Respiratory Syncytial Virus NOT DETECTED (NOT DETECTE); SARS-CoV-2 NOT DETECTED (NOT DETECTE)
[2023-05-23] MEDS: IPRATROPIUM/ALBUTEROL SULFATE 3 ML AMPUL.NEB IH (20:17)
[2023-05-23] MEDS: GUAIFENESIN 600 MG TAB.ER.12H PO (20:48)
[2023-05-23] MEDS: CEFTRIAXONE 1 MG in 0.9 % SODIUM CHLORIDE 50 ML 100 MG IV (20:48)
[2023-05-24] VITALS (20 sets, daily range): BP systolic 105–130; BP diastolic 52–72; PULSE 62–90; RESP 18–32; TEMP 36–36.6; O2SAT 92–98
[2023-05-24] MEDS: SULFACETAMIDE SODIUM 10% OP 300 DROP/15 ML BOTTLE OP ×7 (01:29→22:24)
--- NOTE | 2023-05-24 04:00 | XR_ITS ---
The [address] [address] Patient Name: YUMI DREW MRN: [id number] date: 1940 Sex: F Assigned Patient Location: [place] Current Patient Location: [place] Accession/Order Number: [id number] Exam Date: 05/24/2023 04:08 Report Date: 05/24/2023 08:56 At the request of: ANDREA PECK Procedure: XR chest 1V EXAM: XR chest 1V. HISTORY: SOB. COMPARISON: Chest x-ray 05/23/2023, CT 12/20/2018. TECHNIQUE: AP chest x-ray. FINDINGS: Cardiac size appears unchanged. Trachea is midline. No mediastinal widening. Interstitial thickening is noted with similar opacity in the left mid to lower lung associated with blunting of the left costophrenic angle. No pneumothorax is identified. Osseous structures appear preserved. XR/XR chest 1V IMPRESSION: 1. Interstitial thickening could be related to mild edema pattern. 2. Similar opacity in the left mid to lower lung could be atelectasis with effusion, though airspace disease is not excluded. Electronically authenticated by: JET MCKEON Date: 05/24/2023 08:56
[2023-05-24 04:37] LABS: Basophils Percent Auto 0.4 % (0.2-2.0); Eosinophils Absolute Auto 0.2 10^3/uL (0.0-0.7); Eosinophils Percent Auto 1.4 % (0.9-7.0); Hematocrit 41.9 % (36.0-48.0); Hemoglobin 12.9 g/dL (12.0-16.0); Immature Granulocytes Abs Auto 0.17 10^3/uL (0.00-0.03); Immature Granulocytes Pct Auto 1.5 % (0.0-0.5); Lymphocytes Percent Auto 9.1 % (20.5-60.0); Mean Corpuscular HGB Conc 30.8 g/dL (29.9-35.2); Mean Corpuscular Hemoglobin 30.5 pg (26.7-34.0); Mean Corpuscular Volume 99.1 fL (81.0-99.0); Mean Platelet Volume 9.3 fL (9.5-13.5); Monocytes Percent Auto 9.4 % (1.7-12.0); Neutrophils Absolute Auto 8.6 10^3/uL (1.4-6.5); Neutrophils Percent Auto 78.2 % (43.0-75.0); Platelet Count 234 10^3/uL (150-450); Red Blood Count 4.23 10^6/uL (4.20-5.40)
[2023-05-24 04:59] LABS: Alanine Aminotransferase 21 U/L (14-59); Albumin Globulin Ratio 0.5; Alkaline Phosphatase 79 U/L (46-116); Anion Gap 4.4; Aspartate Amino Transferase 12 U/L (15-37); BUN Creatinine Ratio 46.6; Bilirubin Total 0.4 mg/dL (0.2-1.0); Calcium 9.1 mg/dL (8.5-10.1); Carbon Dioxide 38.6 mmol/L (21.0-32.0); Chloride 102 mmol/L (98-107); Estimated GFR (African America >60 (>=60); Estimated GFR (Non-African Ame >60 (>=60); Globulin 4.1 g/dL; Glucose 103 mg/dL (74-106); Sodium 141 mmol/L (136-145); Total Protein 6.1 g/dL (6.4-8.2)
[2023-05-24] MEDS: GUAIFENESIN 600 MG TAB.ER.12H PO ×2 (08:31→22:16)
--- NOTE | 2023-05-24 10:42 | CM.NOTE ---
Rounds made with Dr. Hylton, no discharge today. PT and OT will evaluate pt today and Case Management will follow for any discharge needs.
[2023-05-24] MEDS: IPRATROPIUM/ALBUTEROL SULFATE 3 ML AMPUL.NEB IH ×4 (10:50→23:12)
[2023-05-24] MEDS: METHYLPREDNISOLONE SOD SUCC PF 125 MG/2 ML VIAL IVP (11:42)
--- NOTE | 2023-05-24 11:42 | P.PN_ITS ---
<Statement entered by Joann Hylton DO - 05/24/23 13:52> This documentation has been reviewed and approved.Patient also seen and evaluated by me. I agree with the above findings and plan and the addition of IV steroids and scheduled duonebs today. Progress Note: Subjective Subjective Interval history: 05/24/23 0855 The patient is sitting up in a bedside chair having just finished eating her breakfast at the time of my exam. She is notably performing pursed lip breathing but denies significant shortness of breath. She continues to have a loose cough that is becoming productive. We will attempt to obtain a sputum culture today if possible. The patient reports a [id number] history of smoking although she quit smoking 20 years ago. She does not have an official diagnosis of COPD but would clinically suspect this. Based on her lung sounds this morning we will add treatment for a COPD exacerbation as we clinically suspect this in addition to her pneumonia. The patient's conjunctivocontinued to be injected with purulent drainage. We discussed the antibiotic drops and the patient has agreed to take these drops as prescribed to treat her conjunctivitis. Exam Constitutional Vital Signs, click to edit/add: Last Vital Signs Temp 97.8 F 05/24/23 08:28 Pulse 77 05/24/23 10:05 Resp 18 05/24/23 08:28 BP 130/72 05/24/23 04:34 Pulse Ox 95 05/24/23 10:54 O2 Del Method Nasal Cannula 05/24/23 10:54 O2 Flow Rate 4 05/24/23 10:54 Common normals: no apparent distress, oriented x3 and alert General appearance: cooperative Orientation/consciousness: Yes awake [facility] Common normals: normocephalic, head/scalp atraumatic and hearing grossly normal bilaterally Eye Common normals: EOMs intact bilaterally and no scleral icterus Chest Common normals: inspection of chest normal Chest: symmetrical chest wall rise Respiratory Common normals: normal respiratory effort and no use of accessory muscles Effort & inspection: able to speak in complete sentences, pursed lip breathing and actively coughing Auscultation: rhonchi (Scattered throughout, greatest on the R) and wheezes (I&E scattered throughout) Cardio Common normals: regular rate, regular rhythm, S1 normal heart sound, S2 normal heart sound and peripheral pulses 2+ throughout Heart sounds: murmur (HSM 4/6) GI Common normals: Normal to inspection, nondistended, normoactive bowel sounds present, soft to palpation, non-tender and no hepatosplenomegaly Bladder/kidney exam: bladder normal to palpation Extremity Common normals: normal to inspection and no calf tenderness General: edema (1-2+ pitting venous stasis edema); no clubbing and no cyanosis Neuro Common normals: CN's II-XII intact bilaterally, moves all extremities, no focal motor deficits and no sensory deficits noted Psych Common normals: mental status grossly normal Progress Note: Objective Labs Labs: Short CBC 05/23/23 05/24/23 Range/Units 13:00 04:19 WBC 11.4 H 11.0 (4.0-11.0) 10^3/uL Hgb 13.9 12.9 (12.0-16.0) g/dL Hct 45.5 41.9 (36.0-48.0) % Plt Count 335 234 (150-450) 10^3/uL BMP 05/23/23 05/24/23 13:00 04:19 Sodium 145 141 Potassium 4.2 4.0 Chloride 104 102 Carbon Dioxide 34.7 H 38.6 H BUN 37.0 H 27.0 H Creatinine 0.78 0.58 Glucose 142 H 103 Calcium 9.4 9.1 Liver Function 05/23/23 05/24/23 Range/Units 13:00 04:19 Total Bilirubin 0.4 0.4 (0.2-1.0) mg/dL AST 16 12 L (15-37) U/L ALT 20 21 (14-59) U/L Alkaline Phosphatase 92 79 (46-116) U/L Albumin 2.3 L 2.0 L (3.4-5.0) g/dL Urine 05/23/23 Range/Units 14:25 Urine Color Lt. yellow (YELLOW) Urine Clarity Slightly cloudy A (CLEAR) Urine pH 6.0 (5.0-9.0) Ur Specific [place] 1.020 (1.005-1.025) Urine Protein Negative (NEG/TRACE) mg/dL Urine Glucose (UA) Negative (NEGATIVE) mg/dL Imaging Chest x-ray: Radiologist's impression: IMPRESSION: 1. Interstitial thickening could be related to mild edema pattern. 2. Similar opacity in the left mid to lower lung could be atelectasis with effusion, though airspace disease is not excluded. Progress Note: A&P Assessment and Plan (1) Sepsis: Assessment and Plan: ACUTE * AEB: * SEP3 Criteria: qSOFA of 2 (SBP 79, RR 44), SOFA of 3 (P/F ratio 177, MAP <70), Source - multifocal Pneumonia and UTI * Lactic Acid and PCT WNL - ameliorates sepsis concerns to some extent * Lethargy and hypotension resolved * Saline lock IVF - at risk for fluid overload based on repeat CXR today * Consider IVP lasix dosing pending clinical course * BC x 2 obtained in ED - pending * CBC, CMP in AM Qualifiers: Sepsis type: sepsis due to unspecified organism Sepsis acute organ dysfunction status: with acute organ dysfunction Severe sepsis acute organ dysfunction type: acute respiratory failure Acute respiratory failure type: with hypoxia Severe sepsis shock status: without septic shock Qualified Code(s): A41.9 - Sepsis, unspecified organism; R65.20 - Severe sepsis without septic shock; J96.01 - Acute respiratory failure with hypoxia (2) Community acquired pneumonia: Assessment and Plan: ACUTE * Multifocal infiltrates on CXR w/ hypoxia * Sats more stable in mid-90s on 4L today * Continue IVPB Rocephin and azithromycin daily * Duonebs q4h scheduled * Guaifenisen BID and OPEP for sputum mobilization * CBC, CMP in AM Qualifiers: Laterality: unspecified laterality Qualified Code(s): J18.9 - Pneumonia, unspecified organism (3) Acute respiratory failure with hypoxemia: Assessment and Plan: ACUTE * O2 sat 95% on 4L today - no home O2 at baseline * 2/2 multifocal PNA * O2 to keep sats above 90% * Continues requiring 4 liters * At risk for fluid overload w/ elevated BNP and peripheral edema * Possible pulmonary edema noted on CXR today * Monitor fluid status closely * Saline lock IVF today * Daily weights, strict I&O (4) Acute exacerbation of chronic obstructive pulmonary disease (COPD): Assessment and Plan: ACUTE * No historical dx of COPD, but pt smoked for 30+ years (quit 20 years ago) * Clinically suspect COPD at baseline * Wheezing and pursed lip breathing on exam today * Add Solumedrol 125 mg x 1, then 40 mg q6h * Change duonebs to scheduled * see resp failure & CAP above (5) UTI (urinary tract infection): Assessment and Plan: ACUTE * UA positive for UTI in ED - culture pending * Continue IVPB Rocephin Qualifiers: Urinary tract infection type: acute cystitis Hematuria presence: without hematuria Qualified Code(s): N30.00 - Acute cystitis without hematuria (6) Hypotension: Assessment and Plan: ACUTE * Resolving * BP stable today * Continue to hold home benazepril for now * VS q8h Qualifiers: Hypotension type: other hypotension type Qualified Code(s): I95.89 - Other hypotension (7) Dehydration: Assessment and Plan: ACUTE * Resolving * Clinical dehydration on exam improved * S.L. IVF today d/t concern for fluid overload (8) Weakness: Assessment and Plan: ACUTE * 2/2 acute infections/hypoxia * PT/OT consults for eval and treat (9) Conjunctivitis: Assessment and Plan: ACUTE * Sulfacetamide OP gtts q3h Qualifiers: Conjunctivitis type: acute Acute conjunctivitis type: bacterial Laterality: bilateral Qualified Code(s): H10.33 - Unspecified acute conjunctivitis, bilateral (10) Peripheral edema: Assessment and Plan: ACUTE ON CHRONIC * Baseline venous stasis dermatitis and waxing/waning edema * Edema reportedly increased x 2 days * Pt is not on diuretics at baseline * CXR indicates possible pulmonary edema today * S.L. 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
--- NOTE | 2023-05-24 13:38 | CM.NOTE ---
Spoke with pt regarding discharge planning, HH services and skilled rehab. Pt wishes at this time to go back to her sister but is open to speak with sister about skilled rehab. Pt would like me to reach out to her sister Stacey Lopez. Called Stacey Lopez and she will be coming over to the hospital today and will reach out to Case Management after she speaks with Regine.
--- NOTE | 2023-05-24 14:50 | CM.NOTE ---
Stacey Lopez, pt's sister at bedside. Spoke with her and pt regarding discharge planning. Both are in agreement for her to return home with HH services. Both provided with Medicare.gov 5 star rating list and they have decided to go with [address] Faxed clinical for new referral.
--- NOTE | 2023-05-24 15:05 | CM.NOTE ---
Important message From Medicare discussed with pt, pt verbalizes understanding and wishes her sister to sign form. Original given to pt and copy placed in pt's chart.
[2023-05-24] MEDS: TIMOLOL MALEATE 0.5% OP SOL 100 DROPS/5 ML BOTTLE 1 DROP EYE-LEFT ×2 (16:28→22:23)
[2023-05-24] MEDS: DORZOLAMIDE HCL 2% OP SOL 200 DROP/10 ML BOTTLE EYE-LEFT ×2 (16:29→22:23)
[2023-05-24] MEDS: BRIMONIDINE TARTRATE 0.15 % OP SOL 100 DROP/5 ML BOTTLE EYE-LEFT ×2 (16:29→22:22)
[2023-05-24] MEDS: AZITHROMYCIN 500 MG in 0.9 % SODIUM CHLORIDE 250 ML 250 MG IV (16:34)
[2023-05-24] MEDS: METHYLPREDNISOLONE SOD SUCC PF 40 MG/ML VIAL IVP ×2 (16:34→22:16)
[2023-05-24] MEDS: ENOXAPARIN SODIUM 40 MG/0.4 ML SYRINGE SUBQ (18:37)
[2023-05-24] MEDS: 0.9 % SODIUM CHLORIDE 250 ML 10 ML IV (18:38)
[2023-05-24] MEDS: CEFTRIAXONE 1 MG in 0.9 % SODIUM CHLORIDE 50 ML 100 MG IV (22:16)
[2023-05-24] MEDS: LATANOPROST 0.005% 2.5 ML BOTTLE 1 DROP EYE-BOTH (22:35)
[2023-05-25] VITALS (21 sets, daily range): BP systolic 94–113; BP diastolic 59–66; PULSE 59–95; RESP 18–28; TEMP 36.3–37.1; O2SAT 90–97
[2023-05-25] MEDS: SULFACETAMIDE SODIUM 10% OP 300 DROP/15 ML BOTTLE OP ×8 (01:40→23:57)
[2023-05-25] MEDS: IPRATROPIUM/ALBUTEROL SULFATE 3 ML AMPUL.NEB IH ×6 (03:59→22:53)
[2023-05-25] MEDS: METHYLPREDNISOLONE SOD SUCC PF 40 MG/ML VIAL IVP ×4 (04:36→22:26)
[2023-05-25 05:11] LABS: Basophils Percent Auto 0.1 % (0.2-2.0); Hematocrit 41.3 % (36.0-48.0); Hemoglobin 12.8 g/dL (12.0-16.0); Immature Granulocytes Abs Auto 0.05 10^3/uL (0.00-0.03); Immature Granulocytes Pct Auto 0.6 % (0.0-0.5); Lymphocytes Absolute Auto 0.5 10^3/uL (1.2-3.8); Lymphocytes Percent Auto 6.2 % (20.5-60.0); Mean Corpuscular Hemoglobin 30.3 pg (26.7-34.0); Mean Corpuscular Volume 97.9 fL (81.0-99.0); Mean Platelet Volume 9.2 fL (9.5-13.5); Monocytes Absolute Auto 0.1 10^3/uL (0.3-0.8); Monocytes Percent Auto 1.1 % (1.7-12.0); Neutrophils Absolute Auto 7.2 10^3/uL (1.4-6.5); Platelet Count 253 10^3/uL (150-450); Red Blood Count 4.22 10^6/uL (4.20-5.40); Red Cell Distribution Width 12.8 % (11.0-15.0); White Blood Count 7.9 10^3/uL (4.0-11.0)
[2023-05-25 05:34] LABS: Alanine Aminotransferase 20 U/L (14-59); Albumin Globulin Ratio 0.5; Albumin Level 2.2 g/dL (3.4-5.0); Alkaline Phosphatase 82 U/L (46-116); Anion Gap 4.7; Aspartate Amino Transferase 11 U/L (15-37); BUN Creatinine Ratio 38.6; Bilirubin Total 0.3 mg/dL (0.2-1.0); Calcium 9.2 mg/dL (8.5-10.1); Carbon Dioxide 39.3 mmol/L (21.0-32.0); Chloride 102 mmol/L (98-107); Estimated GFR (African America >60 (>=60); Estimated GFR (Non-African Ame >60 (>=60); Globulin 4.1 g/dL; Glucose 139 mg/dL (74-106); Sodium 142 mmol/L (136-145); Total Protein 6.3 g/dL (6.4-8.2)
[2023-05-25] MEDS: TIMOLOL MALEATE 0.5% OP SOL 100 DROPS/5 ML BOTTLE 1 DROP EYE-LEFT ×3 (05:48→22:30)
[2023-05-25] MEDS: BRIMONIDINE TARTRATE 0.15 % OP SOL 100 DROP/5 ML BOTTLE EYE-LEFT ×3 (05:48→22:27)
[2023-05-25] MEDS: DORZOLAMIDE HCL 2% OP SOL 200 DROP/10 ML BOTTLE EYE-LEFT ×3 (05:49→22:28)
--- NOTE | 2023-05-25 07:00 | CA_ITS ---
Patient Name: YUMI DREW MR#: [id number] : 1940 Exam Date: 05/25/2023 Ordering Doctor: ANDREA PECK ECHOCARDIOGRAM REPORT PROCEDURE: CA ECHO DOPPLER COMPLETE INDICATIONS: Hypoxia, peripheral edema, concern for CHF COMPARISON: None. DESCRIPTION: COMPLETE ECHOCARDIOGRAM Real-time transthoracic echocardiography with 2D, M-mode, spectral and color flow Doppler performed. QUALITY: Technical quality was good. LEFT VENTRICLE: Normal chamber size. Normal left ventricular wall thickness. LV EF: Global left ventricular systolic function is hyperdynamic; visually estimated ejection fraction is 70 to 75%. No wall motion abnormalities. DIASTOLIC: Grade I diastolic dysfunction. ATRIAL SEPTUM: Inadequately seen. LEFT ATRIUM: Mild dilatation. RIGHT ATRIUM: Mild dilatation. RIGHT VENTRICLE: Normal chamber size. Normal right ventricular systolic function. TRICUSPID VALVE: Normal mobility and thickness. Mild regurgitation. Severe pulmonary hypertension. RVSP 61mmHg MITRAL VALVE: Normal mobility and thickness. No evidence of mitral valve stenosis. There is no mitral annular calcification. Mild mitral regurgitation. AORTIC VALVE: Normal trileaflet appearance. Severely calcified aortic valve. Doppler velocity suggests mild to moderate aortic valve stenosis. DVI 0.3, VENKAT 1.0cm2, Vmax 3.1m/s, mean gradient 16mmHg.No aortic regurgitation. AORTIC ROOT: Normal diameter and appearance. PULMONIC VALVE: Normal thickness and mobility. No stenosis. Trivial regurgitation. PERICARDIUM: No evidence of pericardial effusion. IVC: Moderate dilatation. Measuring 2.4cm with no collapse. CONCLUSION: 1. Global left ventricular systolic function is hyperdynamic; visually estimated ejection fraction is 70 to 75% 2. Normal right ventricular size and systolic function 3. Mild biatrial dilatation 4. Mild tricuspid regurgitation; severely elevated right sided pressures RVSP 61 mmHg 5. Mild mitral regurgitation 6. Mild to moderate aortic stenosis; velocities may be falsely elevated due to hyperdynamic left ventricular systolic function Adult Echocardiography Procedure Report Left Ventricle LVEDD (3.7 - 5.6 cm): 5.01 cm LVESD (2.2 - 4.0 cm): 3.06 cm LVIVS thickness (0.6 - 1.2 cm): 0.98 cm LVPW thickness (0.5 - 1.0 cm): 0.88 cm e': 0.08 m/s E - e': 8.83 LVOT Max Gradient: 3.81 mm[Hg] LVOT Area (cm2): 0.98 m/s Peak Velocity (LVOT): 0.98 m/s Mean Velocity (LVOT): 0.56 m/s LVOT Diameter 1.84 cm Left Ventricular Ejection Fraction: 68.80 % Left Atrium LA Volume Index (2D A2C): 43.10 ml/m2 Left Atrium Systolic Dimension: 4.15 cm Mitral Valve MV E to A Ratio: 0.72 Mitral Valve A-Wave Peak Velocity: 0.94 m/s Mitral Valve E-Wave Peak Velocity: 0.68 m/s Right Ventricle RV Internal Diastolic Dimension: 3.78 cm Aorta AO Root Diam: 2.97 cm Ascending Ao Diam: 2.85 cm Aortic Valve AoV Area (Peak Deshawn): 0.90 cm2, 0.84 cm2 AoV Area (VTI): 0.99 cm2, 0.95 cm2 Peak Velocity(Antegrade Flow): 3.09 m/s, 2.69 m/s Peak Gradient(Antegrade Flow): 38.20 mm[Hg], 28.98 mm[Hg] Mean Velocity(Antegrade Flow): 1.82 m/s, 1.72 m/s Mean Gradient(Antegrade Flow): 16.30 mm[Hg], 13.94 mm[Hg] Velocity Time Integral: 61.97 cm, 57.01 cm Tricuspid Valve Peak Velocity (Regurgitant Flow): 3.18 m/s, 3.39 m/s, 3.36 m/s Pulmonic Valve Peak Velocity: 1.12 m/s Peak Gradient: 5.06 mm[Hg], 4.97 mm[Hg] Right Atrium Right Atrium Systolic Pressure: 68.85 ml, 68.85 ml Dictated by: Frank Ascencio M.D. on 05/25/2023 at 14:54 Approved by: Frank Ascencio M.D. on 05/25/2023 at 15:09
--- NOTE | 2023-05-25 09:28 | P.PN_ITS ---
<Statement entered by Joann Hylton, DO - 05/25/23 14:08> This documentation has been reviewed and approved. Patient also seen and evaluated by me. I have reviewed and agree with the above findings and plan of care. Still requiring oxygen but improving. Discharge home once medically stable in family's care, with Home health Services, [facility], patient did not have oxygen requirements prior to hospitalization. Progress Note: Subjective Subjective Interval history: 05/25/23 0938 The patient is sitting up in a bedside chair having just finished eating her breakfast at the time of my exam. She continues to use pursed lip breathing at rest but her work of breathing is slightly improved from yesterday. She also continues to require O2 supplementation with 4 L via nasal cannula. Her O2 sats ranged from 90 to 96% overnight. A sputum sample was obtained yesterday and cultures are still pending. Her urine output is suboptimal and her a.m. labs reveal dehydration with prerenal azotemia. Her BNP is resolved to normal. We have more clinical concern for dehydration than pulmonary edema today. IV fluids will be resumed at 85 mL an hour for gentle rehydration. A repeat chest x-ray will be obtained in the a.m. to continue to monitor her pneumonia and for possible pulmonary edema (noted on CXR 05/24/2023). A 2D echo will be obtained today. Discharge to sister's home w/ HH likely in 48-72 hrs. Exam Constitutional Vital Signs, click to edit/add: Last Vital Signs Temp 97.4 F L 05/25/23 05:58 Pulse 74 05/25/23 08:07 Resp 26 H 05/25/23 05:58 BP 113/66 05/25/23 05:58 Pulse Ox 92 L 05/25/23 08:07 O2 Del Method Nasal Cannula 05/25/23 08:07 O2 Flow Rate 4 05/25/23 08:07 Common normals: no apparent distress, oriented x3 and alert General appearance: cooperative Orientation/consciousness: Yes awake HENMT Common normals: normocephalic, head/scalp atraumatic and hearing grossly normal bilaterally Mouth: moist mucous membranes abnormal (Mildly dry) Eye Common normals: EOMs intact bilaterally and no scleral icterus General eye: other (Corneal opacity L eye) Visual acuity: complete vision loss (Minimal vision R) Complete vision loss laterality: left Conjunctiva: conjunctiva abnormal bilateral (Improving) conjunctival injection and discharge Chest Common normals: inspection of chest normal Chest: symmetrical chest wall rise Respiratory Common normals: no use of accessory muscles Effort & inspection: able to speak in complete sentences and pursed lip breathing Auscultation: wheezes (EE throughout, sl improved); no rhonchi Cardio Common normals: regular rate, regular rhythm, S1 normal heart sound, S2 normal heart sound and peripheral pulses 2+ throughout Heart sounds: murmur (HSM 4/6) GI Common normals: Normal to inspection, nondistended, normoactive bowel sounds present, soft to palpation, non-tender and no hepatosplenomegaly Bladder/kidney exam: bladder normal to palpation Extremity Common normals: normal to inspection and no calf tenderness General: edema (Chr venous stasis 1-2+, sl improved w/ STARR hose); no clubbing and no cyanosis Neuro Common normals: CN's II-XII intact bilaterally, moves all extremities, no focal motor deficits and no sensory deficits noted Psych Common normals: mental status grossly normal Progress Note: Objective Labs Labs: Short CBC 05/25/23 Range/Units 04:45 WBC 7.9 (4.0-11.0) 10^3/uL Hgb 12.8 (12.0-16.0) g/dL Hct 41.3 (36.0-48.0) % Plt Count 253 (150-450) 10^3/uL BMP 05/25/23 04:45 Sodium 142 Potassium 4.0 Chloride 102 Carbon Dioxide 39.3 H BUN 22.0 H Creatinine 0.57 Glucose 139 H Calcium 9.2 Liver Function 05/25/23 Range/Units 04:45 Total Bilirubin 0.3 (0.2-1.0) mg/dL AST 11 L (15-37) U/L ALT 20 (14-59) U/L Alkaline Phosphatase 82 (46-116) U/L Albumin 2.2 L (3.4-5.0) g/dL Progress Note: A&P Assessment and Plan (1) Sepsis: Assessment and Plan: ACUTE * Lethargy and hypotension resolved * BP remains somewhat soft - continue to hold home antihypertensive for now * Resume IVF w/ LR at 85/hr * BC x 2 obtained in ED - pending * CBC, CMP in AM * AEB on admission: * Criteria: qSOFA of 2 (SBP 79, RR 44), SOFA of 3 (P/F ratio 177, MAP <70), Source - multifocal Pneumonia and UTI * Lactic Acid and PCT WNL - ameliorates sepsis concerns to some extent Qualifiers: Acute respiratory failure type: with hypoxia Sepsis acute organ dysfunction status: with acute organ dysfunction Sepsis type: sepsis due to unspecified organism Severe sepsis acute organ dysfunction type: acute respiratory failure Severe sepsis shock status: without septic shock Qualified Code(s): A41.9 - Sepsis, unspecified organism; R65.20 - Severe sepsis without septic shock; J96.01 - Acute respiratory failure with hypoxia (2) Community acquired pneumonia: Assessment and Plan: ACUTE * Multifocal infiltrates on CXR w/ hypoxia * Unable to wean down O2 supplementation to date * Sputum cx obtained 05/24/23 - results pending * Continue IVPB Rocephin and azithromycin daily * Continue Duonebs q4h scheduled * Continue Guaifenisen BID and OPEP for sputum mobilization * CBC, CMP in AM Qualifiers: Laterality: unspecified laterality Qualified Code(s): J18.9 - Pneumonia, unspecified organism (3) Acute respiratory failure with hypoxemia: Assessment and Plan: ACUTE * O2 sat 92% on 4L today - no home O2 at baseline * 2/2 multifocal PNA and COPD exacerbation * O2 to keep sats above 90% * Continues requiring 4 liters * Reduced clinical concern for fluid overload today * BNP normalized * dehydration noted on labs w/ pre-renal azotemia (improved from admission) * 2D Echo today to assess for HF - no known hx * Repeat CXR in AM (4) Acute exacerbation of chronic obstructive pulmonary disease (COPD): Assessment and Plan: ACUTE * No historical dx of COPD, but pt smoked for 30+ years (quit 20 years ago) * Clinically suspect COPD at baseline * Wheezing and pursed lip breathing on exam - sl improved today * Continue Solumedrol IVP 40 mg q6h * Continue duonebs scheduled * see resp failure & CAP above (5) UTI (urinary tract infection): Assessment and Plan: ACUTE * UA positive for UTI in ED - >100k e-coli, C&S pending * Continue IVPB Rocephin Qualifiers: Hematuria presence: without hematuria Urinary tract infection type: acute cystitis Qualified Code(s): N30.00 - Acute cystitis without hematuria (6) Hypotension: Assessment and Plan: ACUTE * Resolving * BP stable today but still slightly soft * Continue to hold home benazepril for now * VS q8h Qualifiers: Hypotension type: other hypotension type Qualified Code(s): I95.89 - Other hypotension (7) Dehydration: Assessment and Plan: ACUTE * Persistent * Clinical dehydration on exam improved but persists * Inadequate urine output * Pre-renal azotemia persists * Resume gentle IVF w/ LR at 85/hr today * Dly weights * Strict I&O (8) Weakness: Assessment and Plan: ACUTE * 2/2 acute infections/hypoxia * PT/OT consults for eval and treat (9) Conjunctivitis: Assessment and Plan: ACUTE * Sulfacetamide OP gtts q3h Qualifiers: Acute conjunctivitis type: bacterial Conjunctivitis type: acute Laterality: bilateral Qualified Code(s): H10.33 - Unspecified acute conjunctivitis, bilateral (10) Peripheral edema: Assessment and Plan: ACUTE ON CHRONIC * Baseline venous stasis dermatitis and waxing/waning edema * 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
--- NOTE | 2023-05-25 09:28 | PM.PN ---
Progress Note: Subjective Subjective Interval history: 05/25/23 0938 The patient is sitting up in a bedside chair having just finished eating her breakfast at the time of my exam. She continues to use pursed lip breathing at rest but her work of breathing is slightly improved from yesterday. She also continues to require O2 supplementation with 4 L via nasal cannula. Her O2 sats ranged from 90 to 96% overnight. A sputum sample was obtained yesterday and cultures are still pending. Her urine output is suboptimal and her a.m. labs reveal dehydration with prerenal azotemia. Her BNP is resolved to normal. We have more clinical concern for dehydration than pulmonary edema today. IV fluids will be resumed at 85 mL an hour for gentle rehydration. A repeat chest x-ray will be obtained in the a.m. to continue to monitor her pneumonia and for possible pulmonary edema (noted on CXR 05/24/2023). A 2D echo will be obtained today. Discharge to sister's home w/ HH likely in 48-72 hrs. Exam Constitutional Vital Signs, click to edit/add: Last Vital Signs Temp 97.4 F L 05/25/23 05:58 Pulse 74 05/25/23 08:07 Resp 26 H 05/25/23 05:58 BP 113/66 05/25/23 05:58 Pulse Ox 92 L 05/25/23 08:07 O2 Del Method Nasal Cannula 05/25/23 08:07 O2 Flow Rate 4 05/25/23 08:07 Common normals: no apparent distress, oriented x3 and alert General appearance: cooperative Orientation/consciousness: Yes awake HENKY Common normals: normocephalic, head/scalp atraumatic and hearing grossly normal bilaterally Mouth: moist mucous membranes abnormal (Mildly dry) Eye Common normals: EOMs intact bilaterally and no scleral icterus General eye: other (Corneal opacity L eye) Visual acuity: complete vision loss (Minimal vision R) Complete vision loss laterality: left Conjunctiva: conjunctiva abnormal bilateral (Improving) conjunctival injection and discharge Chest Common normals: inspection of chest normal Chest: symmetrical chest wall rise Respiratory Common normals: no use of accessory muscles Effort & inspection: able to speak in complete sentences and pursed lip breathing Auscultation: wheezes (EE throughout, sl improved); no rhonchi Cardio Common normals: regular rate, regular rhythm, S1 normal heart sound, S2 normal heart sound and peripheral pulses 2+ throughout Heart sounds: murmur (HSM 4/6) GI Common normals: Normal to inspection, nondistended, normoactive bowel sounds present, soft to palpation, non-tender and no hepatosplenomegaly Bladder/kidney exam: bladder normal to palpation Extremity Common normals: normal to inspection and no calf tenderness General: edema (Chr venous stasis 1-2+, sl improved w/ STARR hose); no clubbing and no cyanosis Neuro Common normals: CN's II-XII intact bilaterally, moves all extremities, no focal motor deficits and no sensory deficits noted Psych Common normals: mental status grossly normal Progress Note: Objective Labs Labs: Short CBC 05/25/23 Range/Units 04:45 WBC 7.9 (4.0-11.0) 10^3/uL Hgb 12.8 (12.0-16.0) g/dL Hct 41.3 (36.0-48.0) % Plt Count 253 (150-450) 10^3/uL BMP 05/25/23 04:45 Sodium 142 Potassium 4.0 Chloride 102 Carbon Dioxide 39.3 H BUN 22.0 H Creatinine 0.57 Glucose 139 H Calcium 9.2 Liver Function 05/25/23 Range/Units 04:45 Total Bilirubin 0.3 (0.2-1.0) mg/dL AST 11 L (15-37) U/L ALT 20 (14-59) U/L Alkaline Phosphatase 82 (46-116) U/L Albumin 2.2 L (3.4-5.0) g/dL Progress Note: A&P Assessment and Plan (1) Sepsis: Assessment and Plan: ACUTE Lethargy and hypotension resolved BP remains somewhat soft - continue to hold home antihypertensive for now Resume IVF w/ LR at 85/hr BC x 2 obtained in ED - pending CBC, CMP in AM AEB on admission: SEP3 Criteria: qSOFA of 2 (SBP 79, RR 44), SOFA of 3 (P/F ratio 177, MAP <70), Source - multifocal Pneumonia and UTI Lactic Acid and PCT WNL - ameliorates sepsis concerns to some extent Qualifiers: Acute respiratory failure type: with hypoxia Sepsis acute organ dysfunction status: with acute organ dysfunction Sepsis type: sepsis due to unspecified organism Severe sepsis acute organ dysfunction type: acute respiratory failure Severe sepsis shock status: without septic shock Qualified Code(s): A41.9 - Sepsis, unspecified organism; R65.20 - Severe sepsis without septic shock; J96.01 - Acute respiratory failure with hypoxia (2) Community acquired pneumonia: Assessment and Plan: ACUTE Multifocal infiltrates on CXR w/ hypoxia Unable to wean down O2 supplementation to date Sputum cx obtained 05/24/23 - results pending Continue IVPB Rocephin and azithromycin daily Continue Duonebs q4h scheduled Continue Guaifenisen BID and OPEP for sputum mobilization CBC, CMP in AM Qualifiers: Laterality: unspecified laterality Qualified Code(s): J18.9 - Pneumonia, unspecified organism (3) Acute respiratory failure with hypoxemia: Assessment and Plan: ACUTE O2 sat 92% on 4L today - no home O2 at baseline 2/2 multifocal PNA and COPD exacerbation O2 to keep sats above 90% Continues requiring 4 liters Reduced clinical concern for fluid overload today BNP normalized dehydration noted on labs w/ pre-renal azotemia (improved from admission) 2D Echo today to assess for HF - no known hx Repeat CXR in AM (4) Acute exacerbation of chronic obstructive pulmonary disease (COPD): Assessment and Plan: ACUTE No historical dx of COPD, but pt smoked for 30+ years (quit 20 years ago) Clinically suspect COPD at baseline Wheezing and pursed lip breathing on exam - sl improved today Continue Solumedrol IVP 40 mg q6h Continue duonebs scheduled see resp failure & CAP above (5) UTI (urinary tract infection): Assessment and Plan: ACUTE UA positive for UTI in ED - >100k e-coli, C&S pending Continue IVPB Rocephin Qualifiers: Hematuria presence: without hematuria Urinary tract infection type: acute cystitis Qualified Code(s): N30.00 - Acute cystitis without hematuria (6) Hypotension: Assessment and Plan: ACUTE Resolving BP stable today but still slightly soft Continue to hold home benazepril for now VS q8h Qualifiers: Hypotension type: other hypotension type Qualified Code(s): I95.89 - Other hypotension (7) Dehydration: Assessment and Plan: ACUTE Persistent Clinical dehydration on exam improved but persists Inadequate urine output Pre-renal azotemia persists Resume gentle IVF w/ LR at 85/hr today Dly weights Strict I&O (8) Weakness: Assessment and Plan: ACUTE 2/2 acute infections/hypoxia PT/OT consults for eval and treat (9) Conjunctivitis: Assessment and Plan: ACUTE Sulfacetamide OP gtts q3h Qualifiers: Acute conjunctivitis type: bacterial Conjunctivitis type: acute Laterality: bilateral Qualified Code(s): H10.33 - Unspecified acute conjunctivitis, bilateral (10) Peripheral edema: Assessment and Plan: ACUTE ON CHRONIC Baseline venous stasis dermatitis and waxing/waning edema 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
--- NOTE | 2023-05-25 09:41 | CM.NOTE ---
[facility] called for update on pt, asking about discharge date. Case Management will call them back after Dr. Hylton rounds.
[2023-05-25] MEDS: GUAIFENESIN 600 MG TAB.ER.12H PO ×2 (09:59→22:19)
[2023-05-25] MEDS: LACTATED RINGER'S SOLUTION 1,000 ML 85 ML IV ×2 (09:59→22:25)
--- NOTE | 2023-05-25 10:02 | CM.NOTE ---
Rounding with Dr. Hylton. RN Carrie present. Pt. sitting up in chair and stating she is feeling better. Plan is to discharge with home health when medically stable.
--- NOTE | 2023-05-25 10:17 | CM.NOTE ---
Called [facility] [address] Hylton rounding on pt, possible D/C to home Sunday. Update given to [facility].
--- NOTE | 2023-05-25 11:26 | PT.DAILY ---
Physical Therapy Daily Note PT Daily Note/Assess Start: 05/25/23 11:16 Freq: Status: Active Protocol: Document 05/25/23 11:16 PADMINI (Rec: 05/25/23 11:26 SHINELEON [id number]) Physical Therapy Daily Note/Assessment Time In/Time Out Time In 10:20 Time Out 10:33 Pain In Pain N/A Pain Out Pain N/A Subjective Subjective Pt sitting in BS chair upon arrival. agrees to PT this morning. on 4L O2 today. Spo2 92% prior to session. Therapeutic Exercise Time Therapeutic Exercise Minutes (minutes) 4 Therapeutic Exercise Units 0 Therapeutic Exercise Treatment Therapeutic Exercise Treatment Bilat LE strengthening ex complete 10x ea while sitting in BS chair. pt needs vc to focus on breathing in through nose as SpO2 drops to 86% with this activity. Therapeutic Activity Time Therapeutic Activity Minutes (minutes) 8 Therapeutic Activity Units 1 Therapeutic Activity Treatment Chair Transfer Ability Contact Guard Assist Therapeutic Activity Comments Sit>stand to RW CGA pt amb in room 20'x2 with RW, CGA and assist for IV pole and O2 lines. Slow on turns and needs assistance to move RW on turns. Pt returned to BS chair upon completion with call light in reach and needs met. Total Physical Therapy Time Total Therapy Minutes 12 Total Physical Therapy Units 1 Summary Daily Note Summary Steady with gait just needs some assistance to navigate through room with RW and IV pole.
--- NOTE | 2023-05-25 13:25 | CM.NOTE ---
Stacey Lopez updated on [facility] accepting pt at discharge.
--- NOTE | 2023-05-25 14:30 | CM.NOTE ---
Discussed with pt and sister's at bedside about discharge planning and HH services.
[2023-05-25] MEDS: AZITHROMYCIN 500 MG in 0.9 % SODIUM CHLORIDE 250 ML 250 MG IV (17:11)
[2023-05-25] MEDS: ENOXAPARIN SODIUM 40 MG/0.4 ML SYRINGE SUBQ (17:12)
--- NOTE | 2023-05-25 20:47 | PC.NURSE ---
pt blind in left eye, cataract visible in left eye, pt states she can see shadows in the left eye, removed louise laurent for pt to sleep, elevate legs
[2023-05-25] MEDS: CEFTRIAXONE 1,000 MG in 0.9 % SODIUM CHLORIDE 50 ML 100 MG IV (22:26)
[2023-05-25] MEDS: LATANOPROST 0.005% 2.5 ML BOTTLE 1 DROP EYE-BOTH (22:29)
[2023-05-26] VITALS (21 sets, daily range): BP systolic 100–161; BP diastolic 60–82; PULSE 60–112; RESP 18–26; TEMP 36.6–36.8; O2SAT 91–96
[2023-05-26] MEDS: SULFACETAMIDE SODIUM 10% OP 300 DROP/15 ML BOTTLE OP ×8 (02:23→22:07)
[2023-05-26] MEDS: IPRATROPIUM/ALBUTEROL SULFATE 3 ML AMPUL.NEB IH ×6 (03:31→23:07)
--- NOTE | 2023-05-26 04:00 | XR_ITS ---
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 There is blunting left costophrenic angle likely representing small amount of size left pleural effusion with associated atelectasis this is stable from previous exam. There is diffuse increased interstitial markings throughout all lung cabrales. This likely represents a combination of chronic lung changes and/or interstitial fluid. There is no right pleural effusion. There is no evidence of pneumothorax. XR/XR chest 1V IMPRESSION: Chest is similar to previous exam done 2 days prior. The amount of left pleural fluid and associated atelectasis/infiltrate appear to have decreased slightly since that previous exam. Electronically authenticated by: NIEVES YOUNG Date: 05/26/2023 07:41
[2023-05-26] MEDS: METHYLPREDNISOLONE SOD SUCC PF 40 MG/ML VIAL IVP (05:33)
[2023-05-26 05:46] LABS: Basophils Percent Auto 0.1 % (0.2-2.0); Hematocrit 41.8 % (36.0-48.0); Immature Granulocytes Pct Auto 0.9 % (0.0-0.5); Lymphocytes Absolute Auto 0.6 10^3/uL (1.2-3.8); Lymphocytes Percent Auto 5.1 % (20.5-60.0); Mean Corpuscular HGB Conc 31.1 g/dL (29.9-35.2); Mean Corpuscular Hemoglobin 30.3 pg (26.7-34.0); Mean Corpuscular Volume 97.4 fL (81.0-99.0); Mean Platelet Volume 9.2 fL (9.5-13.5); Monocytes Absolute Auto 0.2 10^3/uL (0.3-0.8); Monocytes Percent Auto 1.8 % (1.7-12.0); Neutrophils Absolute Auto 10.3 10^3/uL (1.4-6.5); Neutrophils Percent Auto 92.1 % (43.0-75.0); Platelet Count 288 10^3/uL (150-450); Red Blood Count 4.29 10^6/uL (4.20-5.40); Red Cell Distribution Width 12.8 % (11.0-15.0); White Blood Count 11.1 10^3/uL (4.0-11.0)
[2023-05-26 06:19] LABS: Alanine Aminotransferase 19 U/L (14-59); Albumin Globulin Ratio 0.5; Albumin Level 2.1 g/dL (3.4-5.0); Alkaline Phosphatase 79 U/L (46-116); Anion Gap 3.6; Aspartate Amino Transferase 9 U/L (15-37); BUN Creatinine Ratio 32.3; Bilirubin Total 0.2 mg/dL (0.2-1.0); Calcium 9.3 mg/dL (8.5-10.1); Carbon Dioxide 38.8 mmol/L (21.0-32.0); Chloride 104 mmol/L (98-107); Estimated GFR (African America >60 (>=60); Estimated GFR (Non-African Ame >60 (>=60); Globulin 4.2 g/dL; Glucose 146 mg/dL (74-106); Potassium 4.4 mmol/L (3.5-5.1); Sodium 142 mmol/L (136-145); Total Protein 6.3 g/dL (6.4-8.2)
[2023-05-26] MEDS: BRIMONIDINE TARTRATE 0.15 % OP SOL 100 DROP/5 ML BOTTLE EYE-LEFT ×3 (06:40→22:05)
[2023-05-26] MEDS: DORZOLAMIDE HCL 2% OP SOL 200 DROP/10 ML BOTTLE EYE-LEFT ×3 (06:40→22:06)
[2023-05-26] MEDS: TIMOLOL MALEATE 0.5% OP SOL 100 DROPS/5 ML BOTTLE 1 DROP EYE-LEFT ×3 (06:40→22:09)
[2023-05-26] MEDS: GUAIFENESIN 600 MG TAB.ER.12H PO ×2 (09:36→21:53)
[2023-05-26] MEDS: LEVOFLOXACIN IN DEXTROSE 5 % 750 MG/150 ML IV.SOLN 100 MG IV (10:26)
--- NOTE | 2023-05-26 10:26 | PT.DAILY ---
Physical Therapy Daily Note PT Daily Note/Assess Start: 05/25/23 11:16 Freq: Status: Active Protocol: Document 05/26/23 10:22 PADMINI (Rec: 05/26/23 10:26 PADMINI [id number]) Physical Therapy Daily Note/Assessment Time In/Time Out Time In 09:28 Time Out 09:41 Pain In Pain N/A Pain Out Pain N/A Subjective Subjective Pt sitting in BS chair upon arrival. Agrees to PT. 3L O2 today. Spo2 93% prior to session. Therapeutic Exercise Time Therapeutic Exercise Minutes (minutes) 3 Therapeutic Exercise Units 0 Therapeutic Exercise Treatment Therapeutic Exercise Treatment Seated bilat LE strengthening ex complete in BS chair 10x ea prior to gait/transfers. Therapeutic Activity Time Therapeutic Activity Minutes (minutes) 8 Therapeutic Activity Units 1 Therapeutic Activity Treatment Chair Transfer Ability Contact Guard Assist Therapeutic Activity Comments Sit>stand to RW CGA. Pt amb in room 80' today (2 laps) with RW, and assist for IV pole and O2 lines. Needs assistance navigating around room with RW occasionally but otherwise does well with verbal commands to steer in right direction. SPo2 90% upon completion. Returned to BS chair upon completion with call light in reach and needs met. Total Physical Therapy Time Total Therapy Minutes 11 Total Physical Therapy Units 1 Summary Daily Note Summary Improving gait endurance. O2 levels more stable with activity today.
[2023-05-26 11:19] LABS: Glucometer 189 mg/dL (74-106)
--- NOTE | 2023-05-26 11:57 | P.PN_ITS ---
Progress Note: Subjective Subjective Interval history: Patient states her breathing is much improved from previous day. Exam Constitutional Vital Signs, click to edit/add: Last Vital Signs Temp 98.3 F 05/26/23 05:24 Pulse 86 05/26/23 11:51 Resp 18 05/26/23 05:24 BP 161/60 H 05/26/23 05:24 Pulse Ox 93 L 05/26/23 11:50 O2 Del Method Nasal Cannula 05/26/23 11:50 O2 Flow Rate 2 05/26/23 11:50 Common normals: no apparent distress Respiratory Common normals: normal respiratory effort and no retractions Auscultation: rales Cardio Common normals: regular rate and regular rhythm Progress Note: Objective Labs Labs: Short CBC 05/26/23 Range/Units 05:00 WBC 11.1 H (4.0-11.0) 10^3/uL Hgb 13.0 (12.0-16.0) g/dL Hct 41.8 (36.0-48.0) % Plt Count 288 (150-450) 10^3/uL BMP 05/26/23 05:00 Sodium 142 Potassium 4.4 Chloride 104 Carbon Dioxide 38.8 H BUN 20.0 H Creatinine 0.62 Glucose 146 H Calcium 9.3 Liver Function 05/26/23 Range/Units 05:00 Total Bilirubin 0.2 (0.2-1.0) mg/dL AST 9 L (15-37) U/L ALT 19 (14-59) U/L Alkaline Phosphatase 79 (46-116) U/L Albumin 2.1 L (3.4-5.0) g/dL Progress Note: A&P Assessment and Plan (1) Sepsis: Qualifiers: Acute respiratory failure type: with hypoxia Sepsis acute organ dysfunction status: with acute organ dysfunction Sepsis type: sepsis due to unspecified organism Severe sepsis acute organ dysfunction type: acute respiratory failure Severe sepsis shock status: without septic shock Qualified Code(s): A41.9 - Sepsis, unspecified organism; R65.20 - Severe sepsis without septic shock; J96.01 - Acute respiratory failure with hypoxia (2) Community acquired pneumonia: Qualifiers: Laterality: unspecified laterality Qualified Code(s): J18.9 - Pneumonia, unspecified organism (3) Acute respiratory failure with hypoxemia: (4) Acute exacerbation of chronic obstructive pulmonary disease (COPD): (5) UTI (urinary tract infection): Qualifiers: Hematuria presence: without hematuria Urinary tract infection type: acute cystitis Qualified Code(s): N30.00 - Acute cystitis without hematuria (6) Hypotension: Qualifiers: Hypotension type: other hypotension type Qualified Code(s): I95.89 - Other hypotension (7) Dehydration: (8) Weakness: (9) Conjunctivitis: Qualifiers: Acute conjunctivitis type: bacterial Conjunctivitis type: acute Laterality: bilateral Qualified Code(s): H10.33 - Unspecified acute c onjunctivitis, bilateral (10) Peripheral edema: (11) Glaucoma: Qualifiers: Glaucoma type: unspecified Laterality: bilateral Qualified Code(s): H40.9 - Unspecified glaucoma (12) HTN (hypertension): Qualifiers: Hypertension type: primary hypertension Qualified Code(s): I10 - Essential (primary) hypertension (13) Hyperlipidemia: Qualifiers: Hyperlipidemia type: unspecified Qualified Code(s): E78.5 - Hyperlipidemia, unspecified Plan (1) respiratory distress, hypotension, acute hypoxia with sepsis: AEB on admission: Continue with current treatment plan as patient is overall improving (2) Community acquired pneumonia: Continue with current treatment plan as patient is overall improving. Did advance antibiotics his white blood cell count is elevated today with persisting left shift (3) Acute respiratory failure with hypoxemia: Patient not normally on supplemental oxygen at home, will try to wean that further today. Once weaned off of supplemental oxygen she could be discharged home in improved condition. (4) Acute exacerbation of chronic obstructive pulmonary disease (COPD): Secondary to the above-continue with current treatment plan. Except try patient on IPV treatments. (5) UTI (urinary tract infection): Check on urine culture-continue current treatment plan as outlined above for the pneumonia. Likely to cover UTI as well. (6) Hypotension: Continue to hold medications. This may be her baseline as well. (7) Dehydration: Saline lock, concern for fluid overloaded outlined above. (8) Weakness: PT to evaluate. Patient does prefer to be discharged to home with home health at discharge (9) Conjunctivitis: Continue current treatment. (10) Peripheral edema with a history of chronic combined congestive heart failu re: Check on echocardiogram, saline lock secondary to recent history of acute heart failure (11) Glaucoma: Continue with home treatment, this may be resulting in some of her hypotension. (12) HTN (hypertension): Continue to hold medications here (13) Hyperlipidemia: Continue with home medications (14) severe protein calorie malnutrition based on NIH criteria for albumin- supplement
[2023-05-26] MEDS: METHYLPREDNISOLONE SOD SUCC PF 40 MG/ML VIAL 60 MG IVP ×2 (12:08→17:03)
[2023-05-26] MEDS: FUROSEMIDE 100 MG/10 ML VIAL 60 MG IVP (12:09)
[2023-05-26] MEDS: SODIUM CHLORIDE 0.9% INHALATION 3 ML NEB 6 ML IH ×2 (14:44→19:48)
[2023-05-26 15:59] LABS: Glucometer 161 mg/dL (74-106)
[2023-05-26] MEDS: INSULIN ASPART 300 UNIT/3 ML PEN SUBQ ×2 (16:06→22:08)
[2023-05-26] MEDS: ENOXAPARIN SODIUM 40 MG/0.4 ML SYRINGE SUBQ (16:17)
[2023-05-26] MEDS: CEFTRIAXONE 1,000 MG in 0.9 % SODIUM CHLORIDE 50 ML 100 MG IV (21:53)
[2023-05-26 22:02] LABS: Glucometer 155 mg/dL (74-106)
[2023-05-26] MEDS: LATANOPROST 0.005% 2.5 ML BOTTLE 1 DROP EYE-BOTH (22:07)
[2023-05-27] VITALS (20 sets, daily range): BP systolic 114–134; BP diastolic 79–81; PULSE 65–96; RESP 18–40; TEMP 36.6–36.8; O2SAT 80–94
[2023-05-27] MEDS: SULFACETAMIDE SODIUM 10% OP 300 DROP/15 ML BOTTLE OP ×8 (02:26→23:23)
[2023-05-27] MEDS: METHYLPREDNISOLONE SOD SUCC PF 40 MG/ML VIAL 60 MG IVP ×5 (02:27→23:23)
[2023-05-27] MEDS: IPRATROPIUM/ALBUTEROL SULFATE 3 ML AMPUL.NEB IH ×5 (03:55→23:23)
[2023-05-27 05:34] LABS: Basophils Percent Auto 0.2 % (0.2-2.0); Hematocrit 45.2 % (36.0-48.0); Hemoglobin 14.2 g/dL (12.0-16.0); Immature Granulocytes Abs Auto 0.17 10^3/uL (0.00-0.03); Immature Granulocytes Pct Auto 1.7 % (0.0-0.5); Lymphocytes Absolute Auto 0.6 10^3/uL (1.2-3.8); Lymphocytes Percent Auto 5.6 % (20.5-60.0); Mean Corpuscular HGB Conc 31.4 g/dL (29.9-35.2); Mean Corpuscular Hemoglobin 29.8 pg (26.7-34.0); Mean Platelet Volume 8.8 fL (9.5-13.5); Monocytes Absolute Auto 0.3 10^3/uL (0.3-0.8); Neutrophils Absolute Auto 8.9 10^3/uL (1.4-6.5); Neutrophils Percent Auto 89.5 % (43.0-75.0); Platelet Count 321 10^3/uL (150-450); Red Blood Count 4.76 10^6/uL (4.20-5.40); Red Cell Distribution Width 12.9 % (11.0-15.0)
--- NOTE | 2023-05-27 06:00 | XR_ITS ---
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 There is blunting left costophrenic angle consistent with left pleural effusion and associated atelectasis. The amount of airspace disease in the lower half of the left lung has increased since previous exam which either represents progressing atelectasis or some developing inflammatory infiltrate. As before there is diffuse increased interstitial markings throughout all lung cabrales possibly representing some chronic lung changes and/or overlying interstitial fluid. There is no right pleural effusion. There is no evidence of pneumothorax. XR/XR chest 1V IMPRESSION: Today's exam shows more airspace disease of the lower half the left lung than previous exam which either represents progressing atelectasis or progressing inflammatory infiltrate. Chest is otherwise stable from previous day. Electronically authenticated by: NIEVES YOUNG Date: 05/27/2023 07:18
[2023-05-27 06:13] LABS: Alanine Aminotransferase 27 U/L (14-59); Albumin Globulin Ratio 0.6; Albumin Level 2.5 g/dL (3.4-5.0); Alkaline Phosphatase 83 U/L (46-116); Anion Gap 5.4; Aspartate Amino Transferase 15 U/L (15-37); BUN Creatinine Ratio 29.6; Bilirubin Total 0.3 mg/dL (0.2-1.0); Calcium 9.6 mg/dL (8.5-10.1); Carbon Dioxide 38.2 mmol/L (21.0-32.0); Chloride 100 mmol/L (98-107); Estimated GFR (African America >60 (>=60); Estimated GFR (Non-African Ame >60 (>=60); Globulin 4.4 g/dL; Glucose 134 mg/dL (74-106); Potassium 3.6 mmol/L (3.5-5.1); Sodium 140 mmol/L (136-145); Total Protein 6.9 g/dL (6.4-8.2)
[2023-05-27] MEDS: BRIMONIDINE TARTRATE 0.15 % OP SOL 100 DROP/5 ML BOTTLE EYE-LEFT ×3 (06:28→21:22)
[2023-05-27] MEDS: TIMOLOL MALEATE 0.5% OP SOL 100 DROPS/5 ML BOTTLE 1 DROP EYE-LEFT ×3 (06:29→21:21)
[2023-05-27] MEDS: DORZOLAMIDE HCL 2% OP SOL 200 DROP/10 ML BOTTLE EYE-LEFT ×3 (06:29→21:22)
[2023-05-27 07:04] LABS: Troponin I High Sensitivity 14.7 pg/mL (4.0-51.3)
[2023-05-27] MEDS: GUAIFENESIN 600 MG TAB.ER.12H PO ×2 (09:42→21:21)
[2023-05-27] MEDS: PIPERACILLIN SODIUM/TAZOBACTAM 3.375 GM in 0.9 % SODIUM CHLORIDE 50 ML IV ×2 (09:43→17:17)
[2023-05-27 09:53] LABS: Glucometer 183 mg/dL (74-106)
[2023-05-27] MEDS: ENSURE HP 237 ML LIQUID PO (10:01)
--- NOTE | 2023-05-27 10:12 | P.PN_ITS ---
Progress Note: Subjective Subjective Interval history: Patient states her breathing is somewhat better with the IPV treatments. Seems to tolerate them well. Exam Constitutional Vital Signs, click to edit/add: Last Vital Signs Temp 98.0 F 05/27/23 06:00 Pulse 78 05/27/23 10:00 Resp 22 05/27/23 06:00 BP 126/79 05/27/23 06:00 Pulse Ox 90 L 05/27/23 07:29 O2 Del Method Nasal Cannula 05/27/23 07:29 O2 Flow Rate 4 05/27/23 07:29 Common normals: no apparent distress Respiratory Common normals: normal respiratory effort and no retractions Auscultation: rales (Seems louder today.) Cardio Common normals: regular rate and regular rhythm Progress Note: Objective Labs Labs: Short CBC 05/27/23 Range/Units 05:11 WBC 10.0 (4.0-11.0) 10^3/uL Hgb 14.2 (12.0-16.0) g/dL Hct 45.2 (36.0-48.0) % Plt Count 321 (150-450) 10^3/uL BMP 05/27/23 05:11 Sodium 140 Potassium 3.6 Chloride 100 Carbon Dioxide 38.2 H BUN 21.0 H Creatinine 0.71 Glucose 134 H Calcium 9.6 Liver Function 05/27/23 Range/Units 05:11 Total Bilirubin 0.3 (0.2-1.0) mg/dL AST 15 (15-37) U/L ALT 27 (14-59) U/L Alkaline Phosphatase 83 (46-116) U/L Albumin 2.5 L (3.4-5.0) g/dL Progress Note: A&P Assessment and Plan (1) Sepsis: Qualifiers: Acute respiratory failure type: with hypoxia Sepsis acute organ dysfunction status: with acute organ dysfunction Sepsis type: sepsis due to unspecified organism Severe sepsis acute organ dysfunction type: acute respiratory failure Severe sepsis shock status: without septic shock Qualified Code(s): A41.9 - Sepsis, unspecified organism; R65.20 - Severe sepsis without septic shock; J96.01 - Acute respiratory failure with hypoxia (2) Community acquired pneumonia: Qualifiers: Laterality: unspecified laterality Qualified Code(s): J18.9 - Pneumonia, unspecified organism (3) Acute respiratory failure with hypoxemia: (4) Acute exacerbation of chronic obstructive pulmonary disease (COPD): (5) UTI (urinary tract infection): Qualifiers: Hematuria presence: without hematuria Urinary tract infection type: acute cystitis Qualified Code(s): N30.00 - Acute cystitis without hematuria (6) Hypotension: Qualifiers: Hypotension type: other hypotension type Qualified Code(s): I95.89 - Other hypotension (7) Dehydration: (8) Weakness: (9) Conjunctivitis: Qualifiers: Acute conjunctivitis type: bacterial Conjunctivitis type: acute Laterality: bilateral Qualified Code(s): H10.33 - Unspecified acute conjunctivitis, bilateral (10) Peripheral edema: (11) Glaucoma: Qualifiers: Glaucoma type: unspecified Laterality: bilateral Qualified Code(s): H40.9 - Unspecified glaucoma (12) HTN (hypertension): Qualifiers: Hypertension type: primary hypertension Qualified Code(s): I10 - Essential (primary) hypertension (13) Hyperlipidemia: Qualifiers: Hyperlipidemia type: unspecified Qualified Code(s): E78.5 - Hyperlipidemia, unspecified Plan (1) respiratory distress, leukocytosis with left shift, hypotension, acute hypoxia with sepsis: Condition deteriorated this morning, needed to bump up her supplemental oxygen, will check CTA. Try to obtain sputum culture again. Patient will possibly need PICC line, IV access lost this morning. Consider pulmonology consult based on progression between today and tomorrow (2) Community acquired pneumonia: Continue with current treatment plan as patient is overall improving. Did advance antibiotics his white blood cell count is elevated today with persisting left shift (3) Acute respiratory failure with hypoxemia: Patient not normally on supplemental oxygen at home, will try to wean that further today. Once weaned off of supplemental oxygen she could be discharged home in improved condition. (4) Acute exacerbation of chronic obstructive pulmonary disease (COPD): Secondary to the above-continue with current treatment plan. Except try patient on IPV treatments. (5) UTI (urinary tract infection): Check on urine culture-continue current treatment plan as outlined above for the pneumonia. Likely to cover UTI as well. (6) Hypotension: Continue to hold medications. This may be her baseline as well. (7) Dehydration: Saline lock, concern for fluid overloaded outlined above. (8) Weakness: PT to evaluate. Patient does prefer to be discharged to home with home health at discharge (9) Conjunctivitis: Continue current treatment. (10) Peripheral edema with a history of chronic combined congestive heart failure: Check on echocardiogram, saline lock secondary to recent history of acute heart failure (11) Glaucoma: Continue with home treatment, this may be resulting in some of her hypotension. (12) HTN (hypertension): Continue to hold medications here (13) Hyperlipidemia: Continue with home medications (14) severe protein calorie malnutrition based on NIH criteria for albumin- supplement
[2023-05-27 10:56] LABS: Glucometer 175 mg/dL (74-106)
[2023-05-27] MEDS: SODIUM CHLORIDE 0.9% INHALATION 3 ML NEB 6 ML IH ×2 (11:31→19:52)
[2023-05-27] MEDS: INSULIN ASPART 300 UNIT/3 ML PEN SUBQ ×2 (11:40→21:23)
--- NOTE | 2023-05-27 13:30 | CT_ITS ---
The [address] [address] Patient Name: YUMI DREW MRN: [id number] date: 1940 Sex: F Assigned Patient Location: Current Patient Location: Accession/Order Number: [id number] Exam Date: 05/27/2023 13:45 Report Date: 05/27/2023 14:29 At the request of: RADHA SZYMANSKI Procedure: CT angio chest EXAM: CT angio chest HISTORY: acute hypoxia COMPARISON: 12/20/2018. TECHNIQUE: CT angiography of the chest was performed without IV contrast followed by IV contrast, including 3D post processing CTA image reconstruction. CT dose reduction technique was used, including Automated Exposure Control. IV CONTRAST: 100 mL Omnipaque 350 FINDINGS: Diagnostic quality: Adequate There is no evidence for pulmonary embolism. The heart is not enlarged. There is no pericardial effusion. There are no abnormally enlarged hilar or mediastinal lymph nodes. Coronary Arteries: Coronary calcifications are mild. No thoracic aortic aneurysm. Mild aortic valve calcifications. There is a moderate left-sided pleural effusion. Left basilar subjacent atelectasis. There is also compressive atelectasis of the subpleural right lower lobe. Wedge-shaped area of opacity involving the lingula, most or all of which appears to represent atelectasis, which extends from the pleural surface to the hilum. Notably there is wall thickening about the hilar structures, at the level of the segmental bronchi. There are associated bilateral hilar calcifications due to granulomatous disease. An area of endobronchial mucous plugging is seen within a few subsegmental airways in the medial right lower lobe. A punctate calcified granuloma is also seen in the lingula. No acute process identified in the visualized upper abdomen. Hyperplasia versus adenomatous change of the adrenal glands bilaterally. No destructive osseous changes are seen. Multilevel degenerative changes of the thoracic spine. CT/CT angio chest IMPRESSION: No CT findings to suggest pulmonary embolism. Moderate left pleural effusion. Wedge-shaped area of opacity in the lingula, most or all of which favors to represent atelectasis due to small airway obstruction. This may be due to a mucous plug, versus sequelae of granulomatous hilar fibrosis, as there are also bilateral calcified hilar lymph nodes and mild soft tissue thickening of the deshawn. Small area of endobronchial mucous plugging seen within a few subsegmental airways in the right lower lobe as well. Electronically authenticated by: YESENIA PHIPPS Date: 05/27/2023 14:29
[2023-05-27 15:59] LABS: Glucometer 133 mg/dL (74-106)
[2023-05-27] MEDS: ENOXAPARIN SODIUM 40 MG/0.4 ML SYRINGE SUBQ (17:10)
[2023-05-27 20:55] LABS: Glucometer 170 mg/dL (74-106)
[2023-05-27] MEDS: ENSURE CLEAR 237 ML LIQUID PO (21:22)
[2023-05-27] MEDS: LATANOPROST 0.005% 2.5 ML BOTTLE 1 DROP EYE-BOTH (21:22)
[2023-05-28] VITALS (22 sets, daily range): BP systolic 104–159; BP diastolic 59–92; PULSE 57–103; RESP 16–26; TEMP 36.6–36.8; O2SAT 88–94; BMI 32.8
[2023-05-28] MEDS: PIPERACILLIN SODIUM/TAZOBACTAM 3.375 GM in 0.9 % SODIUM CHLORIDE 50 ML IV ×3 (01:19→17:33)
[2023-05-28] MEDS: SULFACETAMIDE SODIUM 10% OP 300 DROP/15 ML BOTTLE OP ×8 (01:20→21:27)
[2023-05-28] MEDS: IPRATROPIUM/ALBUTEROL SULFATE 3 ML AMPUL.NEB IH ×6 (03:59→23:16)
[2023-05-28 05:10] LABS: Basophils Percent Auto 0.3 % (0.2-2.0); Hematocrit 43.9 % (36.0-48.0); Hemoglobin 14.2 g/dL (12.0-16.0); Immature Granulocytes Abs Auto 0.24 10^3/uL (0.00-0.03); Immature Granulocytes Pct Auto 2.4 % (0.0-0.5); Lymphocytes Absolute Auto 0.5 10^3/uL (1.2-3.8); Lymphocytes Percent Auto 5.1 % (20.5-60.0); Mean Corpuscular HGB Conc 32.3 g/dL (29.9-35.2); Mean Corpuscular Hemoglobin 30.9 pg (26.7-34.0); Mean Corpuscular Volume 95.6 fL (81.0-99.0); Mean Platelet Volume 8.7 fL (9.5-13.5); Monocytes Absolute Auto 0.3 10^3/uL (0.3-0.8); Neutrophils Absolute Auto 8.8 10^3/uL (1.4-6.5); Neutrophils Percent Auto 89.2 % (43.0-75.0); Platelet Count 280 10^3/uL (150-450); Red Blood Count 4.59 10^6/uL (4.20-5.40); Red Cell Distribution Width 13.2 % (11.0-15.0); White Blood Count 9.9 10^3/uL (4.0-11.0)
[2023-05-28 05:32] LABS: Alanine Aminotransferase 22 U/L (14-59); Albumin Globulin Ratio 0.6; Albumin Level 2.3 g/dL (3.4-5.0); Alkaline Phosphatase 73 U/L (46-116); Anion Gap 4.7; Aspartate Amino Transferase 18 U/L (15-37); BUN Creatinine Ratio 35.9; Bilirubin Total 0.4 mg/dL (0.2-1.0); Calcium 9.2 mg/dL (8.5-10.1); Carbon Dioxide 37.3 mmol/L (21.0-32.0); Chloride 101 mmol/L (98-107); Estimated GFR (African America >60 (>=60); Estimated GFR (Non-African Ame >60 (>=60); Glucose 141 mg/dL (74-106); Sodium 139 mmol/L (136-145); Total Protein 6.3 g/dL (6.4-8.2)
[2023-05-28] MEDS: METHYLPREDNISOLONE SOD SUCC PF 40 MG/ML VIAL 60 MG IVP ×3 (06:33→17:32)
[2023-05-28] MEDS: BRIMONIDINE TARTRATE 0.15 % OP SOL 100 DROP/5 ML BOTTLE EYE-LEFT ×3 (06:34→21:26)
[2023-05-28] MEDS: DORZOLAMIDE HCL 2% OP SOL 200 DROP/10 ML BOTTLE EYE-LEFT ×3 (06:34→21:26)
[2023-05-28] MEDS: TIMOLOL MALEATE 0.5% OP SOL 100 DROPS/5 ML BOTTLE 1 DROP EYE-LEFT ×3 (06:34→21:26)
[2023-05-28 07:31] LABS: Glucometer 120 mg/dL (74-106)
[2023-05-28] MEDS: SODIUM CHLORIDE 0.9% INHALATION 3 ML NEB 6 ML IH (07:45)
[2023-05-28] MEDS: ENSURE CLEAR 237 ML LIQUID PO ×2 (09:04→20:15)
[2023-05-28] MEDS: GUAIFENESIN 600 MG TAB.ER.12H PO ×2 (09:04→20:15)
--- NOTE | 2023-05-28 09:13 | P.PN_ITS ---
Progress Note: Subjective Subjective Interval history: Patient continues to insist that her breathing is better despite numbers they would not document that Exam Constitutional Vital Signs, click to edit/add: Last Vital Signs Temp 97.8 F 05/28/23 04:07 Pulse 103 H 05/28/23 07:56 Resp 18 05/28/23 07:20 BP 141/82 05/28/23 07:20 Pulse Ox 94 L 05/28/23 08:12 O2 Del Method Nasal Cannula 05/28/23 08:12 O2 Flow Rate 2.5 05/28/23 08:12 Common normals: no apparent distress Respiratory Common normals: normal respiratory effort and no retractions Auscultation: rales (Seems louder today.) Cardio Common normals: regular rate and regular rhythm Progress Note: Objective Labs Labs: Short CBC 05/28/23 Range/Units 04:53 WBC 9.9 (4.0-11.0) 10^3/uL Hgb 14.2 (12.0-16.0) g/dL Hct 43.9 (36.0-48.0) % Plt Count 280 (150-450) 10^3/uL BMP 05/28/23 04:53 Sodium 139 Potassium 4.0 Chloride 101 Carbon Dioxide 37.3 H BUN 23.0 H Creatinine 0.64 Glucose 141 H Calcium 9.2 Liver Function 05/28/23 Range/Units 04:53 Total Bilirubin 0.4 (0.2-1.0) mg/dL AST 18 (15-37) U/L ALT 22 (14-59) U/L Alkaline Phosphatase 73 (46-116) U/L Albumin 2.3 L (3.4-5.0) g/dL Progress Note: A&P Assessment and Plan (1) Sepsis: Qualifiers: Acute respiratory failure type: with hypoxia Sepsis acute organ dysfunction status: with acute organ dysfunction Sepsis type: sepsis due to unspecified organism Severe sepsis acute organ dysfunction type: acute respiratory failure Severe sepsis shock status: without septic shock Qualified Code(s): A41.9 - Sepsis, unspecified organism; R65.20 - Severe sepsis without septic shock; J96.01 - Acute respiratory failure with hypoxia (2) Community acquired pneumonia: Qualifiers: Laterality: unspecified laterality Qualified Code(s): J18.9 - Pneumonia, unspecified organism (3) Acute respiratory failure with hypoxemia: (4) Acute exacerbation of chronic obstructive pulmonary disease (COPD): (5) UTI (urinary tract infection): Qualifiers: Hematuria presence: without hematuria Urinary tract infection type: acute cystitis Qualified Code(s): N30.00 - Acute cystitis without hematuria (6) Hypotension: Qualifiers: Hypotension type: other hypotension type Qualified Code(s): I95.89 - Other hypotension (7) Dehydration: (8) Weakness: (9) Conjunctivitis: Qualifiers: Acute conjunctivitis type: bacterial Conjunctivitis type: acute Laterality: bilateral Qualified Code(s): H10.33 - Unspecified acute conjunctivitis, bilateral (10) Peripheral edema: (11) Glaucoma: Qualifiers: Glaucoma type: unspecified Laterality: bilateral Qualified Code(s): H40.9 - Unspecified glaucoma (12) HTN (hypertension): Qualifiers: Hypertension type: primary hypertension Qualified Code(s): I10 - Essential (primary) hypertension (13) Hyperlipidemia: Qualifiers: Hyperlipidemia type: unspecified Qualified Code(s): E78.5 - Hyperlipidemia, unspecified Plan (1) respiratory distress, leukocytosis with left shift, hypotension, acute hypoxia with sepsis: With a patient is overall a little better today, labs returning to normal-continue with current treatment plan (2) Community acquired pneumonia: Overall clinically looks somewhat better but unable to wean supplemental oxygen. She does not require supplemental oxygen at home currently. 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 See above (4) Acute exacerbation of chronic obstructive pulmonary disease (COPD): Secondary to the above-continue with current treatment plan. Patient seems to think the IPV treatments help much but she has a difficult time using them appropriately (5) UTI (urinary tract infection): Due to E. coli-sensitive to current antibiotic regime is likely (6) Hypotension: Continue to hold medications. This may be her baseline as well. (7) Dehydration: Saline lock, concern for fluid overloaded outlined above. (8) Weakness: PT to evaluate. Patient does prefer to be discharged to home with home health at discharge (9) Conjunctivitis: Continue current treatment. (10) Peripheral edema with a history of chronic combined congestive heart failure: Echocardiogram was normal (11) Glaucoma: Continue with home treatment, this may be resulting in some of her hypotension. (12) HTN (hypertension): Continue to hold medications here (13) Hyperlipidemia: Continue with home medications (14) severe protein calorie malnutrition based on NIH criteria for albumin- supplement
--- NOTE | 2023-05-28 09:22 | CM.NOTE ---
Rounds made with Dr. Cuevas. No plan for discharge today.
--- NOTE | 2023-05-28 10:33 | CM.NOTE ---
Updated Med 1 services, no discharge for pt today.
--- NOTE | 2023-05-28 11:32 | PT.DAILY ---
Physical Therapy Daily Note PT Daily Note/Assess Start: 05/25/23 11:16 Freq: Status: Active Protocol: Document 05/28/23 11:04 PADMINI (Rec: 05/28/23 11:32 SHINE[place] [id number]) Physical Therapy Daily Note/Assessment Time In/Time Out Time In 10:50 Time Out 11:03 Pain In Pain N/A Pain Out Pain N/A Subjective Subjective Pt sitting in BS chair upon arrival. Agrees to PT. On 2.5L O2 today - SPo2 94% Therapeutic Exercise Time Therapeutic Exercise Minutes (minutes) 3 Therapeutic Exercise Units 0 Therapeutic Exercise Treatment Therapeutic Exercise Treatment Seated AP, LAQ, marches and add squeezes 10x to improve functional mobility prior to gait. Therapeutic Activity Time Therapeutic Activity Minutes (minutes) 9 Therapeutic Activity Units 1 Therapeutic Activity Treatment Chair Transfer Ability Contact Guard Assist,Minimum Assist Therapeutic Activity Comments Sit>stand from BS chair CGA with increased time to complete. Pt amb 80' in room with assist for O2 lines and to direct RW at times. Need to use restroom - commode is brought into room for pt. Pt able to perform pericare with set up needed. Sit>stand from commode Andres - lower surface. Amb 20' back to BS chair with call light in reach and needs met. Spo2 drops to 89% with activity. VC for breathing techniques . Total Physical Therapy Time Total Therapy Minutes 12 Total Physical Therapy Units 1 Summary Daily Note Summary Fair tolerance with activity - drop in sats but does quickly recover with proper breathing techniques.
[2023-05-28 12:22] LABS: Glucometer 173 mg/dL (74-106)
[2023-05-28] MEDS: INSULIN ASPART 300 UNIT/3 ML PEN SUBQ ×2 (12:49→16:08)
[2023-05-28] MEDS: LEVOFLOXACIN IN DEXTROSE 5 % 750 MG/150 ML IV.SOLN 100 MG IV (13:20)
[2023-05-28] MEDS: FLUCONAZOLE IN NACL,ISO-OSM 200 MG/100 ML PIGGYBACK 100 MG IV (14:57)
--- NOTE | 2023-05-28 15:46 | DIETREC ---
Recommend 30 mL PRO-stat BID.
[2023-05-28 16:08] LABS: Glucometer 204 mg/dL (74-106)
[2023-05-28] MEDS: ENOXAPARIN SODIUM 40 MG/0.4 ML SYRINGE SUBQ (17:33)
[2023-05-28 20:18] LABS: Glucometer 139 mg/dL (74-106)
[2023-05-28] MEDS: LATANOPROST 0.005% 2.5 ML BOTTLE 1 DROP EYE-BOTH (21:27)
[2023-05-29] VITALS (22 sets, daily range): BP systolic 103–194; BP diastolic 73–96; PULSE 58–230; RESP 18–32; TEMP 36.2–36.4; O2SAT 86–95
[2023-05-29] MEDS: METHYLPREDNISOLONE SOD SUCC PF 40 MG/ML VIAL 60 MG IVP ×4 (01:03→18:18)
[2023-05-29] MEDS: SULFACETAMIDE SODIUM 10% OP 300 DROP/15 ML BOTTLE OP ×8 (01:04→21:28)
[2023-05-29] MEDS: PIPERACILLIN SODIUM/TAZOBACTAM 3.375 GM in 0.9 % SODIUM CHLORIDE 50 ML IV ×3 (01:04→18:18)
[2023-05-29] MEDS: IPRATROPIUM/ALBUTEROL SULFATE 3 ML AMPUL.NEB IH ×6 (03:59→23:40)
[2023-05-29] MEDS: TIMOLOL MALEATE 0.5% OP SOL 100 DROPS/5 ML BOTTLE 1 DROP EYE-LEFT ×3 (05:25→21:29)
[2023-05-29] MEDS: BRIMONIDINE TARTRATE 0.15 % OP SOL 100 DROP/5 ML BOTTLE EYE-LEFT ×3 (05:39→21:30)
[2023-05-29] MEDS: DORZOLAMIDE HCL 2% OP SOL 200 DROP/10 ML BOTTLE EYE-LEFT ×3 (05:39→21:29)
[2023-05-29] MEDS: HYDRALAZINE HCL 20 MG/ML VIAL 10 MG IVP (06:02)
[2023-05-29 07:05] LABS: Alanine Aminotransferase 26 U/L (14-59); Albumin Globulin Ratio 0.6; Albumin Level 2.3 g/dL (3.4-5.0); Alkaline Phosphatase 71 U/L (46-116); Anion Gap 7.8; Aspartate Amino Transferase 16 U/L (15-37); BUN Creatinine Ratio 34.6; Bilirubin Total 0.5 mg/dL (0.2-1.0); Calcium 8.7 mg/dL (8.5-10.1); Carbon Dioxide 37.3 mmol/L (21.0-32.0); Chloride 101 mmol/L (98-107); Estimated GFR (African America >60 (>=60); Estimated GFR (Non-African Ame >60 (>=60); Globulin 3.6 g/dL; Glucose 145 mg/dL (74-106); Potassium 4.1 mmol/L (3.5-5.1); Sodium 142 mmol/L (136-145); Total Protein 5.9 g/dL (6.4-8.2)
[2023-05-29 07:35] LABS: Glucometer 145 mg/dL (74-106)
[2023-05-29 07:54] LABS: Basophils Percent Auto 0.1 % (0.2-2.0); Hematocrit 44.4 % (36.0-48.0); Hemoglobin 13.9 g/dL (12.0-16.0); Immature Granulocytes Pct Auto 2.3 % (0.0-0.5); Lymphocytes Absolute Auto 0.4 10^3/uL (1.2-3.8); Mean Corpuscular HGB Conc 31.3 g/dL (29.9-35.2); Mean Corpuscular Hemoglobin 30.5 pg (26.7-34.0); Mean Corpuscular Volume 97.4 fL (81.0-99.0); Monocytes Absolute Auto 0.2 10^3/uL (0.3-0.8); Monocytes Percent Auto 2.2 % (1.7-12.0); Neutrophils Absolute Auto 7.8 10^3/uL (1.4-6.5); Neutrophils Percent Auto 90.4 % (43.0-75.0); Platelet Count 293 10^3/uL (150-450); Red Blood Count 4.56 10^6/uL (4.20-5.40); Red Cell Distribution Width 13.2 % (11.0-15.0); White Blood Count 8.6 10^3/uL (4.0-11.0)
[2023-05-29] MEDS: GUAIFENESIN 600 MG TAB.ER.12H PO ×2 (08:14→21:28)
[2023-05-29] MEDS: INSULIN ASPART 300 UNIT/3 ML PEN SUBQ ×2 (08:15→21:28)
[2023-05-29] MEDS: ENSURE CLEAR 237 ML LIQUID PO ×2 (08:16→21:28)
[2023-05-29] MEDS: FLUCONAZOLE IN NACL,ISO-OSM 200 MG/100 ML PIGGYBACK 100 MG IV (09:20)
[2023-05-29] MEDS: 0.9 % SODIUM CHLORIDE 250 ML IV (09:20)
--- NOTE | 2023-05-29 10:27 | CM.NOTE ---
Updates sent to [address]
[2023-05-29] MEDS: SODIUM CHLORIDE 0.9% INHALATION 3 ML NEB 6 ML IH (10:35)
--- NOTE | 2023-05-29 10:53 | P.PN_ITS ---
<Statement entered by Vivek Cuevas MD - 05/29/23 20:40> This documentation has been reviewed and approved. Agree with input and findings by BUSINESS PROCESS CONSULTANT PE: no additions Will reveiw with pulmonology Progress Note: Subjective Subjective Interval history: 05/29/23 0815 The patient is sitting up in a bedside chair eating her breakfast. She reports feeling improved since admission and her appetite is significantly improved. She continues to require O2 supplementation at 2-1/2 L via nasal cannula. Again, the patient does not use O2 at home at baseline. A CTA of the chest obtained on 05/27/2023 did reveal multiple areas of mucous plugging. Patient has been tolerating her IVP therapy well. We will add Mucomyst neb treatments in hopes of further breaking up her mucous plugs. We have also consulted pulmonology in hopes that Dr Simms can help us more effectively treat this patient's acute hypoxic respiratory failure. Exam Constitutional Vital Signs, click to edit/add: Last Vital Signs Temp 97.3 F L 05/29/23 05:47 Pulse 90 05/29/23 09:55 Resp 18 05/29/23 05:47 BP 155/79 H 05/29/23 06:30 Pulse Ox 91 L 05/29/23 05:47 O2 Del Method Nasal Cannula 05/29/23 05:47 O2 Flow Rate 2.5 05/29/23 05:47 Common normals: no apparent distress, oriented x3 and alert General appearance: cooperative Orientation/consciousness: Yes awake HENAR Common normals: normocephalic, head/scalp atraumatic and hearing grossly normal bilaterally Eye Common normals: PERRL, EOMs intact bilaterally, conjunctivae normal and no scleral icterus Chest Common normals: inspection of chest normal Chest: symmetrical chest wall rise Respiratory Common normals: no use of accessory muscles Effort & inspection: able to speak in complete sentences and pursed lip breathing (Improving) Auscultation: wheezes (I&E faint, scattered throughout) and diminished lung sounds Cardio Common normals: regular rate, regular rhythm, S1 normal heart sound, S2 normal heart sound, no murmurs and peripheral pulses 2+ throughout GI Common normals: Normal to inspection, nondistended, normoactive bowel sounds present, soft to palpation, non-tender and no hepatosplenomegaly Palpation: soft and no hepatosplenomegaly Bladder/kidney exam: bladder normal to palpation Extremity Common normals: normal to inspection and no calf tenderness General: edema (Trace bilat insteps); no clubbing and no cyanosis Neuro Common normals: CN's II-XII intact bilaterally, moves all extremities, no focal motor deficits and no sensory deficits noted Psych Common normals: mental status grossly normal Progress Note: Objective Labs Labs: Short CBC 05/29/23 Range/Units 04:12 WBC 8.6 (4.0-11.0) 10^3/uL Hgb 13.9 (12.0-16.0) g/dL Hct 44.4 (36.0-48.0) % Plt Count 293 (150-450) 10^3/uL BMP 05/29/23 04:12 Sodium 142 Potassium 4.1 Chloride 101 Carbon Dioxide 37.3 H BUN 27.0 H Creatinine 0.78 Glucose 145 H Calcium 8.7 Liver Function 05/29/23 Range/Units 04:12 Total Bilirubin 0.5 (0.2-1.0) mg/dL AST 16 (15-37) U/L ALT 26 (14-59) U/L Alkaline Phosphatase 71 (46-116) U/L Albumin 2.3 L (3.4-5.0) g/dL Progress Note: A&P Assessment and Plan (1) Sepsis: Assessment and Plan: ACUTE * Lethargy and hypotension resolved * BP increasingly hypertensive. See below * IVF saline locked * BC x 2 obtained in ED - neg x 5 days * CBC, CMP in AM * AEB on admission: * SEP3 Criteria: qSOFA of 2 (SBP 79, RR 44), SOFA of 3 (P/F ratio 177, MAP <70), Source - multifocal Pneumonia and UTI * Lactic Acid and PCT WNL - ameliorates sepsis concerns to some extent Qualifiers: Sepsis type: sepsis due to unspecified organism Sepsis acute organ dysfunction status: with acute organ dysfunction Severe sepsis acute organ dysfunction type: acute respiratory failure Acute respiratory failure type: with hypoxia Severe sepsis shock status: without septic shock Qualified Code(s): A41.9 - Sepsis, unspecified organism; R65.20 - Severe sepsis without septic shock; J96.01 - Acute respiratory failure with hypoxia (2) Community acquired pneumonia: Assessment and Plan: ACUTE * Multifocal infiltrates on CXR w/ hypoxia * O2 supplementation weaned down from 4L to 2.5L over the last few days. Dyspnea on exertion persists * Sputum cx obtained 05/24/23 - Kylee albicans, likely normal oral al * Continue IVPB Zosyn and Levaquin (Broadened double gram neg coverage over the weekend) * Continue Duonebs q4h scheduled * Continue Guaifenisen BID and OPEP for sputum mobilization * Mucous plugging noted on CTA chest 05/27/23 * Continue IVP therapy w/ breathing treatments * Add Mycomyst TID today * Consult Pulmonology - we appreciate Dr Simms's assistance with this pt's care * CBC, CMP in AM Qualifiers: Laterality: unspecified laterality Qualified Code(s): J18.9 - Pneumonia, unspecified organism (3) Acute respiratory failure with hypoxemia: Assessment and Plan: ACUTE * O2 sat 91-94% on 2.5L today - no home O2 at baseline * 2/2 multifocal PNA and COPD exacerbation * O2 to keep sats above 90% * No clinical concern for fluid overload * BNP normalized * 2D Echo 05/25/23 - unremarkable, preserved LVEF 70-75% * Pulmonology consult (4) Acute exacerbation of chronic obstructive pulmonary disease (COPD): Assessment and Plan: ACUTE * No historical dx of COPD, but pt smoked for 30+ years (quit 20 years ago) * Clinically suspect COPD at baseline * Wheezing and pursed lip breathing on exam - Improving * Continue Solumedrol IVP 40 mg q6h * Continue duonebs scheduled * see resp failure & CAP above (5) UTI (urinary tract infection): Assessment and Plan: ACUTE * UA positive for UTI in ED - >100k e-coli sensitive to Rocephin, Zosyn, and Levaquin * Fully treated with pneumonia ABX Qualifiers: Urinary tract infection type: acute cystitis Hematuria presence: without hematuria Qualified Code(s): N30.00 - Acute cystitis without hematuria (6) Hypotension: Assessment and Plan: ACUTE * Resolved Qualifiers: Hypotension type: other hypotension type Qualified Code(s): I95.89 - Other hypotension (7) Dehydration: Assessment and Plan: ACUTE * Improving * IVF saline locked over the weekend. * Encourage PO intake (8) Weakness: Assessment and Plan: ACUTE * 2/2 acute infections/hypoxia * PT/OT consults for eval and treat (9) Conjunctivitis: Assessment and Plan: ACUTE * Sulfacetamide OP gtts q3h Qualifiers: Conjunctivitis type: acute Acute conjunctivitis type: bacterial Laterality: bilateral Qualified Code(s): H10.33 - Unspecified acute conjunctivitis, bilateral (10) Peripheral edema: Assessment and Plan: ACUTE ON CHRONIC * Improving * Baseline venous stasis dermatitis and waxing/waning edema * Improving w/ STARR hose * Pt is not on diuretics at baseline * Continue daytime STARR hose * Daily weights, strict I&O * 2D Echo 05/25/23 to r/o CHF * Unremarkable. 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
--- NOTE | 2023-05-29 10:53 | PM.PN ---
Progress Note: Subjective Subjective Interval history: 05/29/23 0815 The patient is sitting up in a bedside chair eating her breakfast. She reports feeling improved since admission and her appetite is significantly improved. She continues to require O2 supplementation at 2-1/2 L via nasal cannula. Again, the patient does not use O2 at home at baseline. A CTA of the chest obtained on 05/27/2023 did reveal multiple areas of mucous plugging. Patient has been tolerating her IVP therapy well. We will add Mucomyst neb treatments in hopes of further breaking up her mucous plugs. We have also consulted pulmonology in hopes that Dr Simms can help us more effectively treat this patient's acute hypoxic respiratory failure. Exam Constitutional Vital Signs, click to edit/add: Last Vital Signs Temp 97.3 F L 05/29/23 05:47 Pulse 90 05/29/23 09:55 Resp 18 05/29/23 05:47 BP 155/79 H 05/29/23 06:30 Pulse Ox 91 L 05/29/23 05:47 O2 Del Method Nasal Cannula 05/29/23 05:47 O2 Flow Rate 2.5 05/29/23 05:47 Common normals: no apparent distress, oriented x3 and alert General appearance: cooperative Orientation/consciousness: Yes awake HENMT Common normals: normocephalic, head/scalp atraumatic and hearing grossly normal bilaterally Eye Common normals: PERRL, EOMs intact bilaterally, conjunctivae normal and no scleral icterus Chest Common normals: inspection of chest normal Chest: symmetrical chest wall rise Respiratory Common normals: no use of accessory muscles Effort & inspection: able to speak in complete sentences and pursed lip breathing (Improving) Auscultation: wheezes (I&E faint, scattered throughout) and diminished lung sounds Cardio Common normals: regular rate, regular rhythm, S1 normal heart sound, S2 normal heart sound, no murmurs and peripheral pulses 2+ throughout GI Common normals: Normal to inspection, nondistended, normoactive bowel sounds present, soft to palpation, non-tender and no hepatosplenomegaly Palpation: soft and no hepatosplenomegaly Bladder/kidney exam: bladder normal to palpation Extremity Common normals: normal to inspection and no calf tenderness General: edema (Trace bilat insteps); no clubbing and no cyanosis Neuro Common normals: CN's II-XII intact bilaterally, moves all extremities, no focal motor deficits and no sensory deficits noted Psych Common normals: mental status grossly normal Progress Note: Objective Labs Labs: Short CBC 05/29/23 Range/Units 04:12 WBC 8.6 (4.0-11.0) 10^3/uL Hgb 13.9 (12.0-16.0) g/dL Hct 44.4 (36.0-48.0) % Plt Count 293 (150-450) 10^3/uL BMP 05/29/23 04:12 Sodium 142 Potassium 4.1 Chloride 101 Carbon Dioxide 37.3 H BUN 27.0 H Creatinine 0.78 Glucose 145 H Calcium 8.7 Liver Function 05/29/23 Range/Units 04:12 Total Bilirubin 0.5 (0.2-1.0) mg/dL AST 16 (15-37) U/L ALT 26 (14-59) U/L Alkaline Phosphatase 71 (46-116) U/L Albumin 2.3 L (3.4-5.0) g/dL Progress Note: A&P Assessment and Plan (1) Sepsis: Assessment and Plan: ACUTE Lethargy and hypotension resolved BP increasingly hypertensive. See below IVF saline locked BC x 2 obtained in ED - neg x 5 days CBC, CMP in AM AEB on admission: SEP3 Criteria: qSOFA of 2 (SBP 79, RR 44), SOFA of 3 (P/F ratio 177, MAP <70), Source - multifocal Pneumonia and UTI Lactic Acid and PCT WNL - ameliorates sepsis concerns to some extent Qualifiers: Sepsis type: sepsis due to unspecified organism Sepsis acute organ dysfunction status: with acute organ dysfunction Severe sepsis acute organ dysfunction type: acute respiratory failure Acute respiratory failure type: with hypoxia Severe sepsis shock status: without septic shock Qualified Code(s): A41.9 - Sepsis, unspecified organism; R65.20 - Severe sepsis without septic shock; J96.01 - Acute respiratory failure with hypoxia (2) Community acquired pneumonia: Assessment and Plan: ACUTE Multifocal infiltrates on CXR w/ hypoxia O2 supplementation weaned down from 4L to 2.5L over the last few days. Dyspnea on exertion persists Sputum cx obtained 05/24/23 - Kylee albicans, likely normal oral al Continue IVPB Zosyn and Levaquin (Broadened double gram neg coverage over the weekend) Continue Duonebs q4h scheduled Continue Guaifenisen BID and OPEP for sputum mobilization Mucous plugging noted on CTA chest 05/27/23 Continue IVP therapy w/ breathing treatments Add Mycomyst TID today Consult Pulmonology - we appreciate Dr Simms's assistance with this pt's care CBC, CMP in AM Qualifiers: Laterality: unspecified laterality Qualified Code(s): J18.9 - Pneumonia, unspecified organism (3) Acute respiratory failure with hypoxemia: Assessment and Plan: ACUTE O2 sat 91-94% on 2.5L today - no home O2 at baseline 2/2 multifocal PNA and COPD exacerbation O2 to keep sats above 90% No clinical concern for fluid overload BNP normalized 2D Echo 05/25/23 - unremarkable, preserved LVEF 70-75% Pulmonology consult (4) Acute exacerbation of chronic obstructive pulmonary disease (COPD): Assessment and Plan: ACUTE No historical dx of COPD, but pt smoked for 30+ years (quit 20 years ago) Clinically suspect COPD at baseline Wheezing and pursed lip breathing on exam - Improving Continue Solumedrol IVP 40 mg q6h Continue duonebs scheduled see resp failure & CAP above (5) UTI (urinary tract infection): Assessment and Plan: ACUTE UA positive for UTI in ED - >100k e-coli sensitive to Rocephin, Zosyn, and Levaquin Fully treated with pneumonia ABX Qualifiers: Urinary tract infection type: acute cystitis Hematuria presence: without hematuria Qualified Code(s): N30.00 - Acute cystitis without hematuria (6) Hypotension: Assessment and Plan: ACUTE Resolved Qualifiers: Hypotension type: other hypotension type Qualified Code(s): I95.89 - Other hypotension (7) Dehydration: Assessment and Plan: ACUTE Improving IVF saline locked over the weekend. Encourage PO intake (8) Weakness: Assessment and Plan: ACUTE 2/2 acute infections/hypoxia PT/OT consults for eval and treat (9) Conjunctivitis: Assessment and Plan: ACUTE Sulfacetamide OP gtts q3h Qualifiers: Conjunctivitis type: acute Acute conjunctivitis type: bacterial Laterality: bilateral Qualified Code(s): H10.33 - Unspecified acute conjunctivitis, bilateral (10) Peripheral edema: Assessment and Plan: ACUTE ON CHRONIC Improving Baseline venous stasis dermatitis and waxing/waning edema Improving w/ STARR hose Pt is not on diuretics at baseline Continue daytime STARR hose Daily weights, strict I&O 2D Echo 05/25/23 to r/o CHF Unremarkable. 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
--- NOTE | 2023-05-29 11:23 | PT.DAILY ---
Physical Therapy Daily Note PT Daily Note/Assess Start: 05/25/23 11:16 Freq: Status: Active Protocol: Document 05/29/23 11:20 SHINELEON (Rec: 05/29/23 11:23 PADMINI [id number]) Physical Therapy Daily Note/Assessment Time In/Time Out Time In 11:00 Time Out 11:15 Pain In Pain N/A Pain Out Pain N/A Subjective Subjective Pt sitting in BS chair upon arrival. Agrees to PT. On 2.5L O2 and SpO2 is at 94%. Therapeutic Exercise Time Therapeutic Exercise Minutes (minutes) 4 Therapeutic Exercise Units 0 Therapeutic Exercise Treatment Therapeutic Exercise Treatment Seated bilat LE strengthening ex complete in BS chair 10x to improve functional mobility prior to gait. Therapeutic Activity Time Therapeutic Activity Minutes (minutes) 9 Therapeutic Activity Units 1 Therapeutic Activity Treatment Chair Transfer Ability Standby Assistance Therapeutic Activity Comments Sit>stand SBA from BS chair to RW. Pt amb 100' in room (3 laps today) with RW, SBA with assist for IV pole and O2 lines. Pt occ needs assistance directing RW as she is blind. Pt returned to BS chair with call light in Reach and needs met. SPO2 92% upon completion. Total Physical Therapy Time Total Therapy Minutes 13 Total Physical Therapy Units 1 Summary Daily Note Summary Spo2 only drops slightly with activity today. Improved gait endurance to 100'.
[2023-05-29 11:42] LABS: Glucometer 129 mg/dL (74-106)
--- NOTE | 2023-05-29 12:49 | PM.PLCN ---
History of Present Illness History of Present Illness Consult date: 05/29/23 Requesting physician: Vivek Cuevas Reason for consult: hypoxemia Chief complaint: MULTIFOCAL PNEUMONIA Narrative: 82yo female presented to [facility] ER on 05/23/2023 with weakness and a fall. During w/up, was found to have L > R basilar infiltrates along with hypoxemia. She was admitted and started on antibiotics. She remained on O2, unable to be weaned to RA. Chest CTA on 05/27/2023 noted no pulmonary emboli, lingular and RLL atelectasis/mucus plugging, and a left pleural effusion. She still remains on O2 today and pulmonary was consulted. She said she feels much better today compared to admission. She has a more loose, productive cough. Using PEP; Mucomyst nebs were just ordered. She has a history of tobacco abuse, quit in 2007. There were episodes of chronic mucopurulent bronchitis in the past, but her respiratory status had been compensated up until this time. She is not on any inhalers, nebulizers, or supplemental O2 at home. Review of Systems ROS Status of ROS 10 or more systems reviewed and unremarkable except as noted in history and below Eyes Reports: blurry vision Respiratory Reports: cough and chest congestion; Denies: coughing up blood 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 - Blindness, one eye, unspecified eye (ICD-10) Glaucoma ?H40.9 - Unspecified glaucoma (ICD-10) Social History Highest level of school completed/degree received: high school graduate Meds Home Medications and Allergies Home Medications Medication Instructions Recorded Confirmed Type aspirin 81 mg tablet,delayed 81 mg PO DAILY 05/23/23 05/23/23 History release (Adult Aspirin Regimen) atorvastatin 10 mg tablet 10 mg PO .evening 05/23/23 05/23/23 History benazepril 10 mg tablet 10 mg PO DAILY 05/23/23 05/23/23 History brimonidine 0.2 %-timolol 0.5 % 1 drp ophthalmic (eye) TID 05/23/23 05/24/23 History eye drops dorzolamide 2 % eye drops 1 drp ophthalmic (eye) TID 05/23/23 05/24/23 History latanoprost 0.005 % eye drops 1 drp ophthalmic (eye) .qhs 05/23/23 05/24/23 History Allergies Allergy/AdvReac Type Severity Reaction Status Date / Time No Known Drug Allergies Allergy Verified 05/23/23 12:34 Exam Constitutional Vital Signs, click to edit/add: Last Vital Signs Temp 97.3 F L 05/29/23 05:47 Pulse 90 05/29/23 12:28 Resp 18 05/29/23 05:47 BP 155/79 H 05/29/23 06:30 Pulse Ox 91 L 05/29/23 05:47 O2 Del Method Nasal Cannula 05/29/23 05:47 O2 Flow Rate 2.5 05/29/23 05:47 Documenting provider has reviewed patient's vital signs: yes Common normals: no apparent distress HENMT Other: Wearing nasal cannula Chest Other: Kyphosis with mild dextroscoliosis Respiratory Auscultation: rhonchi throughout (mild) and diminished lung sounds bilateral in the lower lung cabrales Percussion: dullness Lower: left Cardio Rate: regular rate Rhythm: regular rhythm GI Inspection: normal to inspection Extremity General: edema (trace in the distal lower extremities); no clubbing and no cyanosis Neuro Sensorium/orientation: awake and alert Psych Attitude: calm and engaged Results Laboratory Findings ABG, PT/INR, D-dimer: PT/INR, D-dimer PT 10.9 sec (9.0-11.6) 05/23/23 13:00 INR 1.03 05/23/23 13:00 Abnormal lab findings: Abnormal Labs 05/23/23 05/23/23 05/24/23 13:00 14:25 04:19 WBC 11.4 H MCV 100.4 H 99.1 H MPV 9.4 L 9.3 L Neut % (Auto) 80.9 H 78.2 H Lymph % (Auto) 9.1 L 9.1 L [place] % (Auto) Eos % (Auto) 0.5 L Baso % (Auto) Neut # (Auto) 9.2 H 8.6 H Lymph # (Auto) 1.0 L 1.0 L [place] # (Auto) 1.0 H 1.0 H Abs Immat Gran (auto) 0.06 H 0.17 H Imm/Tot Granulo (auto) 1.5 H VBG pCO2 66.7 H Carbon Dioxide 34.7 H 38.6 H BUN 37.0 H 27.0 H Glucose 142 H AST 12 L NT-Pro-B Natriuret Pep 3865.0 H* 1834.0 H* Total Protein 6.1 L Albumin 2.3 L 2.0 L Urine Clarity Slightly cloudy A Urine Urobilinogen 4.0 A Ur Leukocyte Esterase Small A Urine WBC 10-20 A Urine Bacteria Moderate A POC Glucose 05/25/23 05/26/23 05/26/23 04:45 05:00 11:19 WBC 11.1 H MCV MPV 9.2 L 9.2 L Neut % (Auto) 92.0 H 92.1 H Lymph % (Auto) 6.2 L 5.1 L [place] % (Auto) 1.1 L Eos % (Auto) 0.0 L 0.0 L Baso % (Auto) 0.1 L 0.1 L Neut # (Auto) 7.2 H 10.3 H Lymph # (Auto) 0.5 L 0.6 L [place] # (Auto) 0.1 L 0.2 L Abs Immat Gran (auto) 0.05 H 0.10 H Imm/Tot Granulo (auto) 0.6 H 0.9 H VBG pCO2 Carbon Dioxide 39.3 H 38.8 H BUN 22.0 H 20.0 H Glucose 139 H 146 H AST 11 L 9 L NT-Pro-B Natriuret Pep Total Protein 6.3 L 6.3 L Albumin 2.2 L 2.1 L Urine Clarity Urine Urobilinogen Ur Leukocyte Esterase Urine WBC Urine Bacteria POC Glucose 189 H 05/26/23 05/26/23 05/27/23 15:58 21:59 05:11 WBC MCV MPV 8.8 L Neut % (Auto) 89.5 H Lymph % (Auto) 5.6 L [place] % (Auto) Eos % (Auto) 0.0 L Baso % (Auto) Neut # (Auto) 8.9 H Lymph # (Auto) 0.6 L [place] # (Auto) Abs Immat Gran (auto) 0.17 H Imm/Tot Granulo (auto) 1.7 H VBG pCO2 Carbon Dioxide 38.2 H BUN 21.0 H Glucose 134 H AST NT-Pro-B Natriuret Pep Total Protein Albumin 2.5 L Urine Clarity Urine Urobilinogen Ur Leukocyte Esterase Urine WBC Urine Bacteria POC Glucose 161 H 155 H 05/27/23 05/27/23 05/27/23 09:51 10:55 15:59 WBC MCV MPV Neut % (Auto) Lymph % (Auto) [place] % (Auto) Eos % (Auto) Baso % (Auto) Neut # (Auto) Lymph # (Auto) [place] # (Auto) Abs Immat Gran (auto) Imm/Tot Granulo (auto) VBG pCO2 Carbon Dioxide BUN Glucose AST NT-Pro-B Natriuret Pep Total Protein Albumin Urine Clarity Urine Urobilinogen Ur Leukocyte Esterase Urine WBC Urine Bacteria POC Glucose 183 H 175 H 133 H 05/27/23 05/28/23 05/28/23 20:54 04:53 07:30 WBC MCV MPV 8.7 L Neut % (Auto) 89.2 H Lymph % (Auto) 5.1 L [place] % (Auto) Eos % (Auto) 0.0 L Baso % (Auto) Neut # (Auto) 8.8 H Lymph # (Auto) 0.5 L [place] # (Auto) Abs Immat Gran (auto) 0.24 H Imm/Tot Granulo (auto) 2.4 H VBG pCO2 Carbon Dioxide 37.3 H BUN 23.0 H Glucose 141 H AST NT-Pro-B Natriuret Pep Total Protein 6.3 L Albumin 2.3 L Urine Clarity Urine Urobilinogen Ur Leukocyte Esterase Urine WBC Urine Bacteria POC Glucose 170 H 120 H 05/28/23 05/28/23 05/28/23 12:21 16:07 20:17 WBC MCV MPV Neut % (Auto) Lymph % (Auto) [place] % (Auto) Eos % (Auto) Baso % (Auto) Neut # (Auto) Lymph # (Auto) [place] # (Auto) Abs Immat Gran (auto) Imm/Tot Granulo (auto) VBG pCO2 Carbon Dioxide BUN Glucose AST NT-Pro-B Natriuret Pep Total Protein Albumin Urine Clarity Urine Urobilinogen Ur Leukocyte Esterase Urine WBC Urine Bacteria POC Glucose 173 H 204 H 139 H 05/29/23 05/29/23 05/29/23 04:12 07:34 11:41 WBC MCV MPV 9.0 L Neut % (Auto) 90.4 H Lymph % (Auto) 5.0 L [place] % (Auto) Eos % (Auto) 0.0 L Baso % (Auto) 0.1 L Neut # (Auto) 7.8 H Lymph # (Auto) 0.4 L [place] # (Auto) 0.2 L Abs Immat Gran (auto) 0.20 H Imm/Tot Granulo (auto) 2.3 H VBG pCO2 Carbon Dioxide 37.3 H BUN 27.0 H Glucose 145 H AST NT-Pro-B Natriuret Pep Total Protein 5.9 L Albumin 2.3 L Urine Clarity Urine Urobilinogen Ur Leukocyte Esterase Urine WBC Urine Bacteria POC Glucose 145 H 129 H Diagnostic Findings Chest x-ray: report reviewed and image reviewed CT scan - chest: report reviewed and image reviewed Assessment and Plan Assessment and Plan (1) Acute respiratory failure with hypoxemia: Assessment and Plan: 1. Community acquired pneumonia. Appears to be slowly improving. Has remnant mucus plugging & atelectasis in lingula and RLL. History of chronic mucopurulent bronchitis noted in outpatient chart. Patient has already been started on an appropriate pulmonary toilet (PEP & Mucomyst). Does not appear severe or significant enough to consider bronchoscopy at this time. Recommend continue current treatment. 2. Left pleural effusion. Secondary to pneumonia (parapneumonic)? Appears small on physical exam. Risks of thoracentesis include pneumothorax with possible need for thoracostomy tube. Discussed with patient - risks > benefits at this time. Can monitor peripherally. 3. Acute hypoxic respiratory failure secondary to #1 +/- #2. History of tobacco abuse, likely has underlying COPD that is only manifest by the acute illness. This, along with her age (82yo), contribute to prolonged recovery including extended need for supplemental O2. Expect patient to improve to the point O2 may be weaned off, but it may be several weeks. She is already on appropriate treatment. May need to consider prepping for discharge with home O2, and she can continue to recuperate at home. Interventions carry more risk than benefit at this current time, especially as she feels better and she has been weaned down from 4L/min. 4. History of tobacco abuse. Quit 2007.
--- NOTE | 2023-05-29 13:19 | CM.NOTE ---
2nd Notice for Important Message from Medicare discussed with pt, pt denies any questions or concerns.
[2023-05-29] MEDS: ACETYLCYSTEINE 400 MG/4 ML VIAL 200 MG IH ×2 (15:23→23:40)
[2023-05-29] MEDS: ENOXAPARIN SODIUM 40 MG/0.4 ML SYRINGE SUBQ (16:39)
[2023-05-29 16:49] LABS: Glucometer 146 mg/dL (74-106)
[2023-05-29 20:29] LABS: Glucometer 191 mg/dL (74-106)
[2023-05-29] MEDS: LATANOPROST 0.005% 2.5 ML BOTTLE 1 DROP EYE-BOTH (21:28)
--- NOTE | 2023-05-29 22:02 | PC.NURSE ---
RN assisted patient to the bedside commode. Patient had some difficulty following directions. When RN told her to step to the right, she took a step forward and to the left. When RN told the patient to place the toilet paper in the commode, she dropped it on the floor in front of her. patient is A&O x3. patient was then assisted to the bed. She is resting on her right side with call light in reach.
[2023-05-30] VITALS (22 sets, daily range): BP systolic 101–155; BP diastolic 68–74; PULSE 58–133; RESP 18–24; TEMP 36.2–36.6; O2SAT 83–99
[2023-05-30] MEDS: METHYLPREDNISOLONE SOD SUCC PF 40 MG/ML VIAL 60 MG IVP ×3 (01:08→21:47)
[2023-05-30] MEDS: PIPERACILLIN SODIUM/TAZOBACTAM 3.375 GM in 0.9 % SODIUM CHLORIDE 50 ML IV ×3 (01:09→21:45)
[2023-05-30] MEDS: SULFACETAMIDE SODIUM 10% OP 300 DROP/15 ML BOTTLE OP ×8 (01:09→21:48)
[2023-05-30] MEDS: IPRATROPIUM/ALBUTEROL SULFATE 3 ML AMPUL.NEB IH ×6 (03:56→23:23)
[2023-05-30 05:16] LABS: Basophils Percent Auto 0.2 % (0.2-2.0); Hematocrit 44.5 % (36.0-48.0); Lymphocytes Absolute Auto 0.3 10^3/uL (1.2-3.8); Lymphocytes Percent Auto 3.1 % (20.5-60.0); Mean Corpuscular HGB Conc 31.5 g/dL (29.9-35.2); Mean Corpuscular Hemoglobin 29.9 pg (26.7-34.0); Mean Corpuscular Volume 94.9 fL (81.0-99.0); Mean Platelet Volume 8.7 fL (9.5-13.5); Monocytes Absolute Auto 0.3 10^3/uL (0.3-0.8); Monocytes Percent Auto 2.8 % (1.7-12.0); Neutrophils Absolute Auto 9.4 10^3/uL (1.4-6.5); Neutrophils Percent Auto 91.9 % (43.0-75.0); Platelet Count 303 10^3/uL (150-450); Red Blood Count 4.69 10^6/uL (4.20-5.40); Red Cell Distribution Width 13.2 % (11.0-15.0); White Blood Count 10.2 10^3/uL (4.0-11.0)
[2023-05-30 05:36] LABS: Alanine Aminotransferase 26 U/L (14-59); Albumin Globulin Ratio 0.7; Albumin Level 2.4 g/dL (3.4-5.0); Alkaline Phosphatase 67 U/L (46-116); Anion Gap 6.8; Aspartate Amino Transferase 11 U/L (15-37); BUN Creatinine Ratio 37.8; Bilirubin Total 0.6 mg/dL (0.2-1.0); Calcium 9.5 mg/dL (8.5-10.1); Carbon Dioxide 34.1 mmol/L (21.0-32.0); Chloride 102 mmol/L (98-107); Estimated GFR (African America >60 (>=60); Estimated GFR (Non-African Ame >60 (>=60); Globulin 3.6 g/dL; Glucose 137 mg/dL (74-106); Potassium 3.9 mmol/L (3.5-5.1); Sodium 139 mmol/L (136-145)
[2023-05-30] MEDS: TIMOLOL MALEATE 0.5% OP SOL 100 DROPS/5 ML BOTTLE 1 DROP EYE-LEFT ×3 (06:50→21:47)
[2023-05-30] MEDS: DORZOLAMIDE HCL 2% OP SOL 200 DROP/10 ML BOTTLE EYE-LEFT ×3 (06:50→21:48)
[2023-05-30] MEDS: BRIMONIDINE TARTRATE 0.15 % OP SOL 100 DROP/5 ML BOTTLE EYE-LEFT ×3 (06:50→21:48)
--- NOTE | 2023-05-30 07:26 | PM.PLPN ---
Progress Note: A&P Assessment and Plan (1) Acute respiratory failure with hypoxemia: Assessment and Plan: 1. Community acquired pneumonia. No identified agent. Improved with addition of Mucomyst on top of PEP - secretions mobilized, easier to expectorate. 2. Left pleural effusion. Secondary to pneumonia (parapneumonic). No plans for thoracentesis at this time. 3. Acute hypoxic respiratory failure secondary to #1 +/- #2. Still requiring supplemental O2 as of this morning. Discussed with patient that she may have difficulty with the nasal cannula if going through the house. Explained if she still requires it at rest, there is generally a larger concentrator with a long elongated cord to use, opposed to a smaller portable tank. She voiced she wants to go home and have her sister who lives behind her take care of her. Asked her to consider short term rehab if she qualifies. 4. History of tobacco abuse. Quit 2007. Subjective Subjective Interval history: Patient states she feels much better today. Addition of Mucomyst on top of PEP has really helped to mobilize secretions. She is expectorating well. No hemoptysis. Remains on supplemental O2. Exam Constitutional Vital Signs, click to edit/add: Last Vital Signs Temp 97.9 F 05/30/23 06:00 Pulse 77 05/30/23 06:00 Resp 18 05/30/23 06:00 BP 105/71 05/30/23 06:00 Pulse Ox 90 L 05/30/23 06:00 O2 Del Method Nasal Cannula 05/30/23 06:00 O2 Flow Rate 2 05/30/23 06:00 Documenting provider has reviewed patient's vital signs: yes Common normals: no apparent distress General appearance: cooperative HENMT Other: Wearing nasal cannula. No oral candidiasis. Chest Common normals: inspection of chest normal Chest: symmetrical chest wall rise Respiratory Other: Improved breath sounds - no significant rhonchi today, more air movement. Cardio Rate: regular rate Rhythm: regular rhythm Extremity Common normals: no clubbing, cyanosis or edema Neuro Sensorium/orientation: awake and alert Psych Speech: normal speech
[2023-05-30] MEDS: ACETYLCYSTEINE 400 MG/4 ML VIAL 200 MG IH ×3 (07:55→23:23)
--- NOTE | 2023-05-30 07:59 | CM.NOTE ---
Discussed with Dr. Cuevas this AM discharge planning and discussed with telephone operator receptionist placement instead of HH services d/t extended need for oxygen. Pt refuses skilled therapy and wishes to go home with HH services. Pt voices she has a lot of family that are willing to assist with her care and staying with her.
[2023-05-30] MEDS: ENSURE CLEAR 237 ML LIQUID PO ×2 (08:45→21:47)
[2023-05-30] MEDS: GUAIFENESIN 600 MG TAB.ER.12H PO ×2 (08:45→21:47)
[2023-05-30] MEDS: MAGNESIUM SULFATE IN WATER 2 GM/50 ML PREMIX IV (09:42)
[2023-05-30] MEDS: 0.9 % SODIUM CHLORIDE 250 ML IV (09:43)
--- NOTE | 2023-05-30 10:15 | P.PN_ITS ---
<Statement entered by Vivek Cuevas MD - 05/31/23 05:46> Pt seen and evaluated by me slow progress - fpor pt safety she could benefit from rehab stay - pt refuses - prefer to d/c to home not onn O2 but that may not be possible This documentation has been reviewed and approved. Progress Note: Subjective Subjective Interval history: 05/30/23 0845 The pt is resting comfortably in a bedside chair. She continues to require O2 supplementation at 2L to keep sats above 90%. She is tolerating the mucomyst treatments and IVP well and reports significant improvement in sputum mobilization. She was seen in consult by Dr Simms, senior quality engineer, and he agrees with the current plan of care. He does not intend to pursue any interventions such as bronchoscopy or thoracentesis at this time. The pt will likely need to continue following with Dr Simms as an outpatient after discharge. It is increasingly likely that we will not be able to completely wean this pt from O2 supplementation prior to discharge. Trailing oxygen tubing remains a significant trip hazard for this pt who is legally blind. We will give our current treatment plan another 24-48 hrs in an attempt to wean her off of oxygen support. Exam Constitutional Vital Signs, click to edit/add: Last Vital Signs Temp 97.9 F 05/30/23 06:00 Pulse 60 05/30/23 10:00 Resp 18 05/30/23 06:00 BP 103/70 05/30/23 08:48 Pulse Ox 90 L 05/30/23 08:03 O2 Del Method Nasal Cannula 05/30/23 08:03 O2 Flow Rate 2.5 05/30/23 08:03 Common normals: no apparent distress, oriented x3 and alert General appearance: cooperative Orientation/consciousness: Yes awake [facility] Common normals: normocephalic, head/scalp atraumatic and hearing grossly normal bilaterally Eye Common normals: PERRL, EOMs intact bilaterally, conjunctivae normal and no scleral icterus Chest Common normals: inspection of chest normal Chest: symmetrical chest wall rise Respiratory Common normals: normal respiratory effort and no use of accessory muscles Effort & inspection: able to speak in complete sentences Auscultation: wheezes (Faint anterior I&E BUL) and diminished lung sounds (BLL) Cardio Common normals: regular rate, regular rhythm, S1 normal heart sound, S2 normal heart sound and peripheral pulses 2+ throughout Heart sounds: murmur (HSM 3/6) GI Common normals: Normal to inspection, nondistended, normoactive bowel sounds present, soft to palpation, non-tender and no hepatosplenomegaly Bladder/kidney exam: bladder normal to palpation Extremity Common normals: normal to inspection and no calf tenderness General: no edema Neuro Common normals: CN's II-XII intact bilaterally, moves all extremities, no focal motor deficits and no sensory deficits noted Psych Common normals: mental status grossly normal Progress Note: Objective Labs Labs: Short CBC 05/30/23 Range/Units 04:58 WBC 10.2 (4.0-11.0) 10^3/uL Hgb 14.0 (12.0-16.0) g/dL Hct 44.5 (36.0-48.0) % Plt Count 303 (150-450) 10^3/uL BMP 05/30/23 04:58 Sodium 139 Potassium 3.9 Chloride 102 Carbon Dioxide 34.1 H BUN 28.0 H Creatinine 0.74 Glucose 137 H Calcium 9.5 Liver Function 05/30/23 Range/Units 04:58 Total Bilirubin 0.6 (0.2-1.0) mg/dL AST 11 L (15-37) U/L ALT 26 (14-59) U/L Alkaline Phosphatase 67 (46-116) U/L Albumin 2.4 L (3.4-5.0) g/dL Progress Note: A&P Assessment and Plan (1) Sepsis: Assessment and Plan: ACUTE * Resolved * CBC, CMP in AM * AEB on admission: * SEP3 Criteria: qSOFA of 2 (SBP 79, RR 44), SOFA of 3 (P/F ratio 177, MAP <70), Source - multifocal Pneumonia and UTI * Lactic Acid and PCT WNL - ameliorates sepsis concerns to some extent Qualifiers: Sepsis type: sepsis due to unspecified organism Sepsis acute organ dysfunction status: with acute organ dysfunction Severe sepsis acute organ dysfunction type: acute respiratory failure Acute respiratory failure type: with hypoxia Severe sepsis shock status: without septic shock Qualified Code(s): A41.9 - Sepsis, unspecified organism; R65.20 - Severe sepsis without septic shock; J96.01 - Acute respiratory failure with hypoxia (2) Community acquired pneumonia: Assessment and Plan: ACUTE * Multifocal infiltrates on CXR w/ hypoxia * O2 supplementation weaned down from 4L to 2L over the last few days. Dyspnea on exertion persists * Sputum cx obtained 05/24/23 - Kylee albicans, likely normal oral al * Continue IVPB Zosyn and Levaquin (Broadened double gram neg coverage over the weekend) * Continue Duonebs q4h scheduled * Continue Guaifenisen BID and OPEP for sputum mobilization * Mucous plugging noted on CTA chest 05/27/23 * Continue IVP therapy w/ breathing treatments * Continue Mycomyst TID today * Consult Pulmonology - we appreciate Dr Simms's assistance with this pt's care * CBC, CMP in AM Qualifiers: Laterality: unspecified laterality Qualified Code(s): J18.9 - Pneumonia, unspecified organism (3) Acute respiratory failure with hypoxemia: Assessment and Plan: ACUTE * O2 sat 91-94% on 2L today - no home O2 at baseline * 2/2 multifocal PNA w/ mucous plugging and COPD exacerbation * O2 to keep sats above 90% - titrate down as able * No clinical concern for fluid overload * BNP normalized * 2D Echo 05/25/23 - unremarkable, preserved LVEF 70-75% * Pulmonology consult - we appreciate Dr Simms's assistance with this pt's care * Trial Mag sulfate IVPB 2gm x 1 today for bronchodilation (4) Acute exacerbation of chronic obstructive pulmonary disease (COPD): Assessment and Plan: ACUTE * No historical dx of COPD, but pt smoked for 30+ years (quit 20 years ago) * Clinically suspect COPD at baseline * Wheezing and pursed lip breathing on exam - Much improved * Continue Solumedrol IVP 40 mg, titrate down to BID dosing * Continue duonebs scheduled * see resp failure & CAP above (5) UTI (urinary tract infection): Assessment and Plan: ACUTE * UA positive for UTI in ED - >100k e-coli sensitive to Rocephin, Zosyn, and Levaquin * Fully treated with pneumonia ABX Qualifiers: Urinary tract infection type: acute cystitis Hematuria presence: without hematuria Qualified Code(s): N30.00 - Acute cystitis without hematuria (6) Hypotension: Assessment and Plan: ACUTE * Resolved Qualifiers: Hypotension type: other hypotension type Qualified Code(s): I95.89 - Other hypotension (7) Dehydration: Assessment and Plan: ACUTE * Resolving * IVF saline locked over the weekend. * Encourage PO intake (8) Weakness: Assessment and Plan: ACUTE * 2/2 acute infections/hypoxia * PT/OT consults for eval and treat * SNF for rehab recommended - pt adamantly refused (9) Conjunctivitis: Assessment and Plan: ACUTE * Improving * Sulfacetamide OP gtts q3h Qualifiers: Conjunctivitis type: acute Acute conjunctivitis type: bacterial Laterality: bilateral Qualified Code(s): H10.33 - Unspecified acute conjunctivitis, bilateral (10) Peripheral edema: Assessment and Plan: ACUTE ON CHRONIC * Resolving * Baseline venous stasis dermatitis and waxing/waning edema * Resolving w/ STARR hose * Pt is not on diuretics at baseline * Continue daytime STARR hose * Daily weights, strict I&O * 2D Echo 05/25/23 to r/o CHF * Unremarkable. 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
--- NOTE | 2023-05-30 10:15 | PM.PN ---
Progress Note: Subjective Subjective Interval history: 05/30/23 0845 The pt is resting comfortably in a bedside chair. She continues to require O2 supplementation at 2L to keep sats above 90%. She is tolerating the mucomyst treatments and IVP well and reports significant improvement in sputum mobilization. She was seen in consult by Dr Simms, embedded linux engineer, and he agrees with the current plan of care. He does not intend to pursue any interventions such as bronchoscopy or thoracentesis at this time. The pt will likely need to continue following with Dr Simms as an outpatient after discharge. It is increasingly likely that we will not be able to completely wean this pt from O2 supplementation prior to discharge. Trailing oxygen tubing remains a significant trip hazard for this pt who is legally blind. We will give our current treatment plan another 24-48 hrs in an attempt to wean her off of oxygen support. Exam Constitutional Vital Signs, click to edit/add: Last Vital Signs Temp 97.9 F 05/30/23 06:00 Pulse 60 05/30/23 10:00 Resp 18 05/30/23 06:00 BP 103/70 05/30/23 08:48 Pulse Ox 90 L 05/30/23 08:03 O2 Del Method Nasal Cannula 05/30/23 08:03 O2 Flow Rate 2.5 05/30/23 08:03 Common normals: no apparent distress, oriented x3 and alert General appearance: cooperative Orientation/consciousness: Yes awake HENIL Common normals: normocephalic, head/scalp atraumatic and hearing grossly normal bilaterally Eye Common normals: PERRL, EOMs intact bilaterally, conjunctivae normal and no scleral icterus Chest Common normals: inspection of chest normal Chest: symmetrical chest wall rise Respiratory Common normals: normal respiratory effort and no use of accessory muscles Effort & inspection: able to speak in complete sentences Auscultation: wheezes (Faint anterior I&E BUL) and diminished lung sounds (BLL) Cardio Common normals: regular rate, regular rhythm, S1 normal heart sound, S2 normal heart sound and peripheral pulses 2+ throughout Heart sounds: murmur (HSM 3/6) GI Common normals: Normal to inspection, nondistended, normoactive bowel sounds present, soft to palpation, non-tender and no hepatosplenomegaly Bladder/kidney exam: bladder normal to palpation Extremity Common normals: normal to inspection and no calf tenderness General: no edema Neuro Common normals: CN's II-XII intact bilaterally, moves all extremities, no focal motor deficits and no sensory deficits noted Psych Common normals: mental status grossly normal Progress Note: Objective Labs Labs: Short CBC 05/30/23 Range/Units 04:58 WBC 10.2 (4.0-11.0) 10^3/uL Hgb 14.0 (12.0-16.0) g/dL Hct 44.5 (36.0-48.0) % Plt Count 303 (150-450) 10^3/uL BMP 05/30/23 04:58 Sodium 139 Potassium 3.9 Chloride 102 Carbon Dioxide 34.1 H BUN 28.0 H Creatinine 0.74 Glucose 137 H Calcium 9.5 Liver Function 05/30/23 Range/Units 04:58 Total Bilirubin 0.6 (0.2-1.0) mg/dL AST 11 L (15-37) U/L ALT 26 (14-59) U/L Alkaline Phosphatase 67 (46-116) U/L Albumin 2.4 L (3.4-5.0) g/dL Progress Note: A&P Assessment and Plan (1) Sepsis: Assessment and Plan: ACUTE Resolved CBC, CMP in AM AEB on admission: SEP3 Criteria: qSOFA of 2 (SBP 79, RR 44), SOFA of 3 (P/F ratio 177, MAP <70), Source - multifocal Pneumonia and UTI Lactic Acid and PCT WNL - ameliorates sepsis concerns to some extent Qualifiers: Sepsis type: sepsis due to unspecified organism Sepsis acute organ dysfunction status: with acute organ dysfunction Severe sepsis acute organ dysfunction type: acute respiratory failure Acute respiratory failure type: with hypoxia Severe sepsis shock status: without septic shock Qualified Code(s): A41.9 - Sepsis, unspecified organism; R65.20 - Severe sepsis without septic shock; J96.01 - Acute respiratory failure with hypoxia (2) Community acquired pneumonia: Assessment and Plan: ACUTE Multifocal infiltrates on CXR w/ hypoxia O2 supplementation weaned down from 4L to 2L over the last few days. Dyspnea on exertion persists Sputum cx obtained 05/24/23 - Kylee albicans, likely normal oral al Continue IVPB Zosyn and Levaquin (Broadened double gram neg coverage over the weekend) Continue Duonebs q4h scheduled Continue Guaifenisen BID and OPEP for sputum mobilization Mucous plugging noted on CTA chest 05/27/23 Continue IVP therapy w/ breathing treatments Continue Mycomyst TID today Consult Pulmonology - we appreciate Dr Simms's assistance with this pt's care CBC, CMP in AM Qualifiers: Laterality: unspecified laterality Qualified Code(s): J18.9 - Pneumonia, unspecified organism (3) Acute respiratory failure with hypoxemia: Assessment and Plan: ACUTE O2 sat 91-94% on 2L today - no home O2 at baseline 2/2 multifocal PNA w/ mucous plugging and COPD exacerbation O2 to keep sats above 90% - titrate down as able No clinical concern for fluid overload BNP normalized 2D Echo 05/25/23 - unremarkable, preserved LVEF 70-75% Pulmonology consult - we appreciate Dr Simms's assistance with this pt's care Trial Mag sulfate IVPB 2gm x 1 today for bronchodilation (4) Acute exacerbation of chronic obstructive pulmonary disease (COPD): Assessment and Plan: ACUTE No historical dx of COPD, but pt smoked for 30+ years (quit 20 years ago) Clinically suspect COPD at baseline Wheezing and pursed lip breathing on exam - Much improved Continue Solumedrol IVP 40 mg, titrate down to BID dosing Continue duonebs scheduled see resp failure & CAP above (5) UTI (urinary tract infection): Assessment and Plan: ACUTE UA positive for UTI in ED - >100k e-coli sensitive to Rocephin, Zosyn, and Levaquin Fully treated with pneumonia ABX Qualifiers: Urinary tract infection type: acute cystitis Hematuria presence: without hematuria Qualified Code(s): N30.00 - Acute cystitis without hematuria (6) Hypotension: Assessment and Plan: ACUTE Resolved Qualifiers: Hypotension type: other hypotension type Qualified Code(s): I95.89 - Other hypotension (7) Dehydration: Assessment and Plan: ACUTE Resolving IVF saline locked over the weekend. Encourage PO intake (8) Weakness: Assessment and Plan: ACUTE 2/2 acute infections/hypoxia PT/OT consults for eval and treat SNF for rehab recommended - pt adamantly refused (9) Conjunctivitis: Assessment and Plan: ACUTE Improving Sulfacetamide OP gtts q3h Qualifiers: Conjunctivitis type: acute Acute conjunctivitis type: bacterial Laterality: bilateral Qualified Code(s): H10.33 - Unspecified acute conjunctivitis, bilateral (10) Peripheral edema: Assessment and Plan: ACUTE ON CHRONIC Resolving Baseline venous stasis dermatitis and waxing/waning edema Resolving w/ STARR hose Pt is not on diuretics at baseline Continue daytime STARR hose Daily weights, strict I&O 2D Echo 05/25/23 to r/o CHF Unremarkable. 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
[2023-05-30 10:57] LABS: Glucometer 174 mg/dL (74-106)
[2023-05-30] MEDS: FLUCONAZOLE IN NACL,ISO-OSM 200 MG/100 ML PIGGYBACK 100 MG IV (11:03)
[2023-05-30] MEDS: INSULIN ASPART 300 UNIT/3 ML PEN SUBQ (12:00)
[2023-05-30] MEDS: LEVOFLOXACIN IN DEXTROSE 5 % 750 MG/150 ML IV.SOLN 100 MG IV (13:37)
[2023-05-30 17:17] LABS: Glucometer 101 mg/dL (74-106)
[2023-05-30] MEDS: ENOXAPARIN SODIUM 40 MG/0.4 ML SYRINGE SUBQ (17:54)
[2023-05-30 21:00] LABS: Glucometer 74 mg/dL (74-106)
[2023-05-30] MEDS: LATANOPROST 0.005% 2.5 ML BOTTLE 1 DROP EYE-BOTH (21:47)
[2023-05-31] VITALS (24 sets, daily range): BP systolic 122–139; BP diastolic 75–82; PULSE 54–92; RESP 16–20; TEMP 36.3–36.8; O2SAT 90–95
[2023-05-31] MEDS: SULFACETAMIDE SODIUM 10% OP 300 DROP/15 ML BOTTLE OP ×4 (00:19→09:41)
[2023-05-31] MEDS: IPRATROPIUM/ALBUTEROL SULFATE 3 ML AMPUL.NEB IH ×6 (03:45→23:04)
[2023-05-31] MEDS: PIPERACILLIN SODIUM/TAZOBACTAM 3.375 GM in 0.9 % SODIUM CHLORIDE 50 ML IV ×3 (05:00→20:57)
[2023-05-31] MEDS: DORZOLAMIDE HCL 2% OP SOL 200 DROP/10 ML BOTTLE EYE-LEFT ×3 (05:01→22:25)
[2023-05-31] MEDS: BRIMONIDINE TARTRATE 0.15 % OP SOL 100 DROP/5 ML BOTTLE EYE-LEFT ×3 (05:01→22:20)
[2023-05-31] MEDS: TIMOLOL MALEATE 0.5% OP SOL 100 DROPS/5 ML BOTTLE 1 DROP EYE-LEFT ×3 (05:01→22:21)
[2023-05-31 05:36] LABS: Basophils Percent Auto 0.3 % (0.2-2.0); Hematocrit 45.8 % (36.0-48.0); Hemoglobin 14.2 g/dL (12.0-16.0); Immature Granulocytes Abs Auto 0.18 10^3/uL (0.00-0.03); Immature Granulocytes Pct Auto 1.6 % (0.0-0.5); Lymphocytes Absolute Auto 0.3 10^3/uL (1.2-3.8); Lymphocytes Percent Auto 2.6 % (20.5-60.0); Mean Corpuscular Hemoglobin 30.2 pg (26.7-34.0); Mean Corpuscular Volume 97.4 fL (81.0-99.0); Mean Platelet Volume 10.2 fL (9.5-13.5); Monocytes Absolute Auto 0.3 10^3/uL (0.3-0.8); Monocytes Percent Auto 2.4 % (1.7-12.0); Neutrophils Absolute Auto 10.8 10^3/uL (1.4-6.5); Neutrophils Percent Auto 93.1 % (43.0-75.0); Platelet Count 187 10^3/uL (150-450); Red Cell Distribution Width 13.4 % (11.0-15.0); White Blood Count 11.6 10^3/uL (4.0-11.0)
[2023-05-31 06:16] LABS: Alanine Aminotransferase 24 U/L (14-59); Albumin Globulin Ratio 0.6; Albumin Level 2.2 g/dL (3.4-5.0); Alkaline Phosphatase 65 U/L (46-116); Anion Gap 6.4; Aspartate Amino Transferase 16 U/L (15-37); BUN Creatinine Ratio 42.7; Bilirubin Total 0.5 mg/dL (0.2-1.0); Calcium 8.9 mg/dL (8.5-10.1); Carbon Dioxide 33.3 mmol/L (21.0-32.0); Chloride 102 mmol/L (98-107); Estimated GFR (African America >60 (>=60); Estimated GFR (Non-African Ame >60 (>=60); Globulin 3.5 g/dL; Glucose 140 mg/dL (74-106); Potassium 4.7 mmol/L (3.5-5.1); Sodium 137 mmol/L (136-145); Total Protein 5.7 g/dL (6.4-8.2)
[2023-05-31] MEDS: ACETYLCYSTEINE 400 MG/4 ML VIAL 200 MG IH ×3 (07:45→23:04)
[2023-05-31] MEDS: LISINOPRIL 10 MG TABLET PO (09:40)
[2023-05-31] MEDS: METHYLPREDNISOLONE SOD SUCC PF 40 MG/ML VIAL IVP ×2 (09:40→20:27)
[2023-05-31] MEDS: GUAIFENESIN 600 MG TAB.ER.12H PO ×2 (09:40→20:27)
[2023-05-31] MEDS: ENSURE CLEAR 237 ML LIQUID PO ×2 (09:41→20:28)
[2023-05-31] MEDS: FLUCONAZOLE IN NACL,ISO-OSM 200 MG/100 ML PIGGYBACK 100 MG IV (09:51)
--- NOTE | 2023-05-31 10:34 | CM.NOTE ---
Rounds made with Dr. Cuevas pt down to 1L [place] oxygen. No discharge today.
--- NOTE | 2023-05-31 10:48 | P.PN_ITS ---
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 Progress Note: Subjective Subjective Interval history: 05/31/23 0855 The pt is resting comfortably in a bedside chair. RT was able to titrate O2 supplementation down to 1L yesterday. She is tolerating the mucomyst treatments and IPV well and reports significant improvement in sputum mobilization with all treatment modalities. Pt continues to slowly improve and we hope to wean her off of oxygen supplementation prior to discharge. Her solu-medrol will be titrated down again today. Trailing oxygen tubing remains a significant trip hazard for this pt who is legally blind. We will give our current treatment plan another 24-48 hrs in an attempt to wean her off of oxygen support. She is a little dehydrated on morning labs and the pt was encouraged to push oral fluids as much as possible - nursing will also encourage PO intake. Exam Constitutional Vital Signs, click to edit/add: Last Vital Signs Temp 97.7 F 05/31/23 05:03 Pulse 92 H 05/31/23 09:57 Resp 16 05/31/23 05:03 BP 122/81 05/31/23 05:03 Pulse Ox 90 L 05/31/23 07:50 O2 Del Method Nasal Cannula 05/31/23 07:50 O2 Flow Rate 1 05/31/23 07:50 Common normals: no apparent distress, oriented x3 and alert General appearance: cooperative Orientation/consciousness: Yes awake HENIA Common normals: normocephalic, head/scalp atraumatic and hearing grossly normal bilaterally Eye Common normals: PERRL, EOMs intact bilaterally, conjunctivae normal and no scle ral icterus Chest Common normals: inspection of chest normal Chest: symmetrical chest wall rise Respiratory Common normals: normal respiratory effort and no use of accessory muscles Effort & inspection: able to speak in complete sentences and pursed lip breathing Auscultation: rales (Faint, LLL) and diminished lung sounds (BLL, improving air exchange); no wheezes Cardio Common normals: regular rate, regular rhythm, S1 normal heart sound, S2 normal heart sound and peripheral pulses 2+ throughout Heart sounds: murmur (HSM 3/6) GI Common normals: Normal to inspection, nondistended, normoactive bowel sounds present, soft to palpation, non-tender and no hepatosplenomegaly Bladder/kidney exam: bladder normal to palpation Extremity Common normals: normal to inspection and no calf tenderness General: no edema Neuro Common normals: CN's II-XII intact bilaterally, moves all extremities, no focal motor deficits and no sensory deficits noted Psych Common normals: mental status grossly normal Progress Note: Objective Labs Labs: Short CBC 05/31/23 Range/Units 05:21 WBC 11.6 H (4.0-11.0) 10^3/uL Hgb 14.2 (12.0-16.0) g/dL Hct 45.8 (36.0-48.0) % Plt Count 187 (150-450) 10^3/uL BMP 05/31/23 05:21 Sodium 137 Potassium 4.7 Chloride 102 Carbon Dioxide 33.3 H BUN 32.0 H Creatinine 0.75 Glucose 140 H Calcium 8.9 Liver Function 05/31/23 Range/Units 05:21 Total Bilirubin 0.5 (0.2-1.0) mg/dL AST 16 (15-37) U/L ALT 24 (14-59) U/L Alkaline Phosphatase 65 (46-116) U/L Albumin 2.2 L (3.4-5.0) g/dL Progress Note: A&P Assessment and Plan (1) Community acquired pneumonia: Assessment and Plan: ACUTE * Slowly improving * Multifocal infiltrates on CXR w/ hypoxia on admission * O2 supplementation weaned down from 4L to 1L over the last few days. Dyspnea on exertion persists * Sputum cx obtained 05/24/23 - Kylee albicans, likely normal oral al * Continue IVPB Zosyn and Levaquin (Broadened double gram neg coverage over the weekend) * Continue Duonebs q4h scheduled * Continue Guaifenisen BID and OPEP for sputum mobilization * Mucous plugging noted on CTA chest 05/27/23 * Continue IPV therapy w/ breathing treatments * Continue Mycomyst TID today - likely d/c in 24-48 hrs * Consult Pulmonology - we appreciate Dr Simms's assistance with this pt's care * Continue current plan * CBC, CMP in AM Qualifiers: Laterality: unspecified laterality Qualified Code(s): J18.9 - Pneumonia, unspecified organism (2) Acute respiratory failure with hypoxemia: Assessment and Plan: ACUTE * Improving slowly * O2 sat 90-94% on 1L x 24 hrs - no home O2 at baseline * 2/2 multifocal PNA w/ mucous plugging and COPD exacerbation * O2 to keep sats above 90% - titrate down as able * No clinical concern for fluid overload * BNP normalized * 2D Echo 05/25/23 - unremarkable, preserved LVEF 70-75% * Pulmonology consult - we appreciate Dr Simms's assistance with this pt's care * Improved air exchange after Mag sulfate IVPB admin 05/30/23 - continued dosing not recommended (3) Acute exacerbation of chronic obstructive pulmonary disease (COPD): Assessment and Plan: ACUTE * No historical dx of COPD, but pt smoked for 30+ years (quit 20 years ago) * Clinically suspect COPD at baseline * Wheezing and pursed lip breathing on exam - Much improved * Continue Solumedrol IVP 40 mg, titrate down to BID dosing * Continue duonebs scheduled * see resp failure & CAP above (4) Sepsis: Assessment and Plan: ACUTE * Resolved * CBC, CMP in AM * AEB on admission: * Criteria: qSOFA of 2 (SBP 79, RR 44), SOFA of 3 (P/F ratio 177, MAP <70), Source - multifocal Pneumonia and UTI * Lactic Acid and PCT WNL - ameliorates sepsis concerns to some extent Qualifiers: Acute respiratory failure type: with hypoxia Sepsis acute organ dysf unction status: with acute organ dysfunction Sepsis type: sepsis due to unspecified organism Severe sepsis acute organ dysfunction type: acute respiratory failure Severe sepsis shock status: without septic shock Qualified Code(s): A41.9 - Sepsis, unspecified organism; R65.20 - Severe sepsis without septic shock; J96.01 - Acute respiratory failure with hypoxia (5) UTI (urinary tract infection): Assessment and Plan: ACUTE * UA positive for UTI in ED - >100k e-coli sensitive to Rocephin, Zosyn, and Levaquin * Fully treated with pneumonia ABX Qualifiers: Hematuria presence: without hematuria Urinary tract infection type: acute cystitis Qualified Code(s): N30.00 - Acute cystitis without hematuria (6) Hypotension: Assessment and Plan: ACUTE * Resolved Qualifiers: Hypotension type: other hypotension type Qualified Code(s): I95.89 - Other hypotension (7) Dehydration: Assessment and Plan: ACUTE * Resolving * IVF saline locked over the weekend. * Encourage PO intake - push oral fluids (8) Weakness: Assessment and Plan: ACUTE * 2/2 acute infections/hypoxia * PT/OT consults for eval and treat * SNF for rehab recommended - pt adamantly refused * Plans home to sister's house w/ home health and family assistance (9) Conjunctivitis: Assessment and Plan: ACUTE * Resolved * D/C Sulfacetamide today - completed 7 day course Qualifiers: Acute conjunctivitis type: bacterial Conjunctivitis type: acute Laterality: bilateral Qualified Code(s): H10.33 - Unspecified acute conjunctivitis, bilateral (10) Peripheral edema: Assessment and Plan: ACUTE ON CHRONIC * Resolved * Baseline venous stasis dermatitis and waxing/waning edema * Resolving w/ STARR hose * Pt is not on diuretics at baseline * Continue daytime STARR hose * Daily weights, strict I&O * 2D Echo 05/25/23 to r/o CHF * Unremarkable. 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
--- NOTE | 2023-05-31 10:48 | PM.PN ---
Progress Note: Subjective Subjective Interval history: 05/31/23 0855 The pt is resting comfortably in a bedside chair. RT was able to titrate O2 supplementation down to 1L yesterday. She is tolerating the mucomyst treatments and IPV well and reports significant improvement in sputum mobilization with all treatment modalities. Pt continues to slowly improve and we hope to wean her off of oxygen supplementation prior to discharge. Her solu-medrol will be titrated down again today. Trailing oxygen tubing remains a significant trip hazard for this pt who is legally blind. We will give our current treatment plan another 24-48 hrs in an attempt to wean her off of oxygen support. She is a little dehydrated on morning labs and the pt was encouraged to push oral fluids as much as possible - nursing will also encourage PO intake. Exam Constitutional Vital Signs, click to edit/add: Last Vital Signs Temp 97.7 F 05/31/23 05:03 Pulse 92 H 05/31/23 09:57 Resp 16 05/31/23 05:03 BP 122/81 05/31/23 05:03 Pulse Ox 90 L 05/31/23 07:50 O2 Del Method Nasal Cannula 05/31/23 07:50 O2 Flow Rate 1 05/31/23 07:50 Common normals: no apparent distress, oriented x3 and alert General appearance: cooperative Orientation/consciousness: Yes awake HENDE Common normals: normocephalic, head/scalp atraumatic and hearing grossly normal bilaterally Eye Common normals: PERRL, EOMs intact bilaterally, conjunctivae normal and no scleral icterus Chest Common normals: inspection of chest normal Chest: symmetrical chest wall rise Respiratory Common normals: normal respiratory effort and no use of accessory muscles Effort & inspection: able to speak in complete sentences and pursed lip breathing Auscultation: rales (Faint, LLL) and diminished lung sounds (BLL, improving air exchange); no wheezes Cardio Common normals: regular rate, regular rhythm, S1 normal heart sound, S2 normal heart sound and peripheral pulses 2+ throughout Heart sounds: murmur (HSM 3/6) GI Common normals: Normal to inspection, nondistended, normoactive bowel sounds present, soft to palpation, non-tender and no hepatosplenomegaly Bladder/kidney exam: bladder normal to palpation Extremity Common normals: normal to inspection and no calf tenderness General: no edema Neuro Common normals: CN's II-XII intact bilaterally, moves all extremities, no focal motor deficits and no sensory deficits noted Psych Common normals: mental status grossly normal Progress Note: Objective Labs Labs: Short CBC 05/31/23 Range/Units 05:21 WBC 11.6 H (4.0-11.0) 10^3/uL Hgb 14.2 (12.0-16.0) g/dL Hct 45.8 (36.0-48.0) % Plt Count 187 (150-450) 10^3/uL BMP 05/31/23 05:21 Sodium 137 Potassium 4.7 Chloride 102 Carbon Dioxide 33.3 H BUN 32.0 H Creatinine 0.75 Glucose 140 H Calcium 8.9 Liver Function 05/31/23 Range/Units 05:21 Total Bilirubin 0.5 (0.2-1.0) mg/dL AST 16 (15-37) U/L ALT 24 (14-59) U/L Alkaline Phosphatase 65 (46-116) U/L Albumin 2.2 L (3.4-5.0) g/dL Progress Note: A&P Assessment and Plan (1) Community acquired pneumonia: Assessment and Plan: ACUTE Slowly improving Multifocal infiltrates on CXR w/ hypoxia on admission O2 supplementation weaned down from 4L to 1L over the last few days. Dyspnea on exertion persists Sputum cx obtained 05/24/23 - Kylee albicans, likely normal oral al Continue IVPB Zosyn and Levaquin (Broadened double gram neg coverage over the weekend) Continue Duonebs q4h scheduled Continue Guaifenisen BID and OPEP for sputum mobilization Mucous plugging noted on CTA chest 05/27/23 Continue IPV therapy w/ breathing treatments Continue Mycomyst TID today - likely d/c in 24-48 hrs Consult Pulmonology - we appreciate Dr Simms's assistance with this pt's care Continue current plan CBC, CMP in AM Qualifiers: Laterality: unspecified laterality Qualified Code(s): J18.9 - Pneumonia, unspecified organism (2) Acute respiratory failure with hypoxemia: Assessment and Plan: ACUTE Improving slowly O2 sat 90-94% on 1L x 24 hrs - no home O2 at baseline 2/2 multifocal PNA w/ mucous plugging and COPD exacerbation O2 to keep sats above 90% - titrate down as able No clinical concern for fluid overload BNP normalized 2D Echo 12/15/23 - unremarkable, preserved LVEF 70-75% Pulmonology consult - we appreciate Dr Simms's assistance with this pt's care Improved air exchange after Mag sulfate IVPB admin 05/30/23 - continued dosing not recommended (3) Acute exacerbation of chronic obstructive pulmonary disease (COPD): Assessment and Plan: ACUTE No historical dx of COPD, but pt smoked for 30+ years (quit 20 years ago) Clinically suspect COPD at baseline Wheezing and pursed lip breathing on exam - Much improved Continue Solumedrol IVP 40 mg, titrate down to BID dosing Continue duonebs scheduled see resp failure & CAP above (4) Sepsis: Assessment and Plan: ACUTE Resolved CBC, CMP in AM AEB on admission: Criteria: qSOFA of 2 (SBP 79, RR 44), SOFA of 3 (P/F ratio 177, MAP <70), Source - multifocal Pneumonia and UTI Lactic Acid and PCT WNL - ameliorates sepsis concerns to some extent Qualifiers: Acute respiratory failure type: with hypoxia Sepsis acute organ dysfunction status: with acute organ dysfunction Sepsis type: sepsis due to unspecified organism Severe sepsis acute organ dysfunction type: acute respiratory failure Severe sepsis shock status: without septic shock Qualified Code(s): A41.9 - Sepsis, unspecified organism; R65.20 - Severe sepsis without septic shock; J96.01 - Acute respiratory failure with hypoxia (5) UTI (urinary tract infection): Assessment and Plan: ACUTE UA positive for UTI in ED - >100k e-coli sensitive to Rocephin, Zosyn, and Levaquin Fully treated with pneumonia ABX Qualifiers: Hematuria presence: without hematuria Urinary tract infection type: acute cystitis Qualified Code(s): N30.00 - Acute cystitis without hematuria (6) Hypotension: Assessment and Plan: ACUTE Resolved Qualifiers: Hypotension type: other hypotension type Qualified Code(s): I95.89 - Other hypotension (7) Dehydration: Assessment and Plan: ACUTE Resolving IVF saline locked over the weekend. Encourage PO intake - push oral fluids (8) Weakness: Assessment and Plan: ACUTE 2/2 acute infections/hypoxia PT/OT consults for eval and treat SNF for rehab recommended - pt adamantly refused Plans home to sister's house w/ home health and family assistance (9) Conjunctivitis: Assessment and Plan: ACUTE Resolved D/C Sulfacetamide today - completed 7 day course Qualifiers: Acute conjunctivitis type: bacterial Conjunctivitis type: acute Laterality: bilateral Qualified Code(s): H10.33 - Unspecified acute conjunctivitis, bilateral (10) Peripheral edema: Assessment and Plan: ACUTE ON CHRONIC Resolved Baseline venous stasis dermatitis and waxing/waning edema Resolving w/ STARR hose Pt is not on diuretics at baseline Continue daytime STARR hose Daily weights, strict I&O 2D Echo 05/25/23 to r/o CHF Unremarkable. 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
[2023-05-31 10:59] LABS: Glucometer 174 mg/dL (74-106)
--- NOTE | 2023-05-31 11:17 | PT.DAILY ---
Physical Therapy Daily Note PT Daily Note/Assess Start: 05/25/23 11:16 Freq: Status: Active Protocol: Document 05/31/23 11:11 [email or web address] (Rec: 05/31/23 11:17 MEDINAAMYLEON [id number]) Physical Therapy Daily Note/Assessment Time In/Time Out Time In 10:00 Time Out 10:19 Pain In Pain N/A Pain Out Pain N/A Subjective Subjective Pt sitting in BS chair upon arrival. On 1L O2 today Spo2 90% before session. Therapeutic Exercise Time Therapeutic Exercise Minutes (minutes) 3 Therapeutic Exercise Units 0 Therapeutic Exercise Treatment Therapeutic Exercise Treatment Seated bilat LE strengthening ex complete 10x prior to gait. Therapeutic Activity Time Therapeutic Activity Minutes (minutes) 8 Therapeutic Activity Units 1 Therapeutic Activity Treatment Chair Transfer Ability Standby Assistance Therapeutic Activity Comments Pt sit>stand SBA. Amb in room 70' before needing to use restroom. Pt needs Andres to direct RW but amb is SBA with assist for IV pole and O2 lines. Pt able to lower herself to toilet with grab bar SBA. Pt performs pericare with set up needed. Sit>stand from toilet SBA with grab bar. Amb back to BS chair 30' with RW, Andres on walker to direct through room. Pt returned to BS chair. SPo2 85% upon completion and with short rest break she recovers to 90%. Remains in BS chair with feet elevated and room service ordered for pt. Total Physical Therapy Time Total Therapy Minutes 11 Total Physical Therapy Units 1 Summary Daily Note Summary Transfers improving. Less O2 today with session though Spo2 cont to drop with activity. Pt needs assistance directing RW around room as she cannot see but pt is steady with dynamic standing using RW.
--- NOTE | 2023-05-31 13:21 | P.PLPN_ITS ---
Progress Note: A&P Assessment and Plan (1) Acute respiratory failure with hypoxemia: Assessment and Plan: 1. Community acquired pneumonia. No identified agent. Doing well with Mucomyst - tolerating it, loosening secretions. 2. Left pleural effusion. Secondary to pneumonia (parapneumonic). No plans for thoracentesis at this time. 3. Acute hypoxic respiratory failure secondary to #1 +/- #2. Attempting to wean O2 prior to discharge given concern of O2 tubing is a tripping hazard and p atient has difficulty seeing. 4. History of tobacco abuse. Quit 2007. Subjective Subjective Interval history: Doing well, no new issues. Continuing to use Mucomyst with PEP. Loosening secretions. Remains on O2. Exam Constitutional Vital Signs, click to edit/add: Last Vital Signs Temp 97.7 F 05/31/23 05:03 Pulse 77 05/31/23 11:55 Resp 16 05/31/23 05:03 BP 122/81 05/31/23 05:03 Pulse Ox 90 L 05/31/23 11:54 O2 Del Method Nasal Cannula 05/31/23 11:54 O2 Flow Rate 1 05/31/23 11:54 Documenting provider has reviewed patient's vital signs: yes Chest Common normals: inspection of chest normal Chest: symmetrical chest wall rise Respiratory Effort & inspection: symmetric chest movement; no respiratory distress and does not use accessory muscles Auscultation: rhonchi; no wheezes Cardio Rate: regular rate Rhythm: regular rhythm Extremity Common normals: normal to inspection Neuro Motor exam: no tremor noted Psych Attitude: calm
[2023-05-31] MEDS: INSULIN ASPART 300 UNIT/3 ML PEN SUBQ ×2 (13:47→22:24)
[2023-05-31] MEDS: 0.9 % SODIUM CHLORIDE 250 ML 10 ML IV (13:48)
--- NOTE | 2023-05-31 15:09 | CM.NOTE ---
Updates faxed to [address]
[2023-05-31] MEDS: ENOXAPARIN SODIUM 40 MG/0.4 ML SYRINGE SUBQ (18:00)
[2023-05-31 18:04] LABS: Glucometer 107 mg/dL (74-106)
[2023-05-31 20:25] LABS: Glucometer 202 mg/dL (74-106)
[2023-05-31] MEDS: LATANOPROST 0.005% 2.5 ML BOTTLE 1 DROP EYE-BOTH (22:26)
[2023-06-01] VITALS (23 sets, daily range): BP systolic 109–160; BP diastolic 59–81; PULSE 53–90; RESP 18–32; TEMP 36.5–36.6; O2SAT 86–94
[2023-06-01] MEDS: IPRATROPIUM/ALBUTEROL SULFATE 3 ML AMPUL.NEB IH ×6 (03:59→23:29)
[2023-06-01 04:12] LABS: Basophils Percent Auto 0.1 % (0.2-2.0); Hemoglobin 13.4 g/dL (12.0-16.0); Immature Granulocytes Abs Auto 0.11 10^3/uL (0.00-0.03); Immature Granulocytes Pct Auto 1.3 % (0.0-0.5); Lymphocytes Absolute Auto 0.2 10^3/uL (1.2-3.8); Lymphocytes Percent Auto 2.5 % (20.5-60.0); Mean Corpuscular HGB Conc 31.2 g/dL (29.9-35.2); Mean Corpuscular Volume 96.4 fL (81.0-99.0); Mean Platelet Volume 8.8 fL (9.5-13.5); Monocytes Absolute Auto 0.3 10^3/uL (0.3-0.8); Monocytes Percent Auto 3.7 % (1.7-12.0); Neutrophils Percent Auto 92.4 % (43.0-75.0); Platelet Count 259 10^3/uL (150-450); Red Blood Count 4.46 10^6/uL (4.20-5.40); Red Cell Distribution Width 13.6 % (11.0-15.0); White Blood Count 8.7 10^3/uL (4.0-11.0)
[2023-06-01 04:35] LABS: Alanine Aminotransferase 23 U/L (14-59); Albumin Globulin Ratio 0.7; Albumin Level 2.1 g/dL (3.4-5.0); Alkaline Phosphatase 60 U/L (46-116); Anion Gap 3.5; Aspartate Amino Transferase 11 U/L (15-37); BUN Creatinine Ratio 44.1; Bilirubin Total 0.4 mg/dL (0.2-1.0); Calcium 8.8 mg/dL (8.5-10.1); Carbon Dioxide 36.5 mmol/L (21.0-32.0); Chloride 103 mmol/L (98-107); Estimated GFR (African America >60 (>=60); Estimated GFR (Non-African Ame >60 (>=60); Globulin 3.2 g/dL; Glucose 130 mg/dL (74-106); Sodium 138 mmol/L (136-145); Total Protein 5.3 g/dL (6.4-8.2)
[2023-06-01] MEDS: PIPERACILLIN SODIUM/TAZOBACTAM 3.375 GM in 0.9 % SODIUM CHLORIDE 50 ML IV ×2 (04:40→20:28)
--- NOTE | 2023-06-01 04:52 | PC.NURSE ---
24 oz diet pepsi
--- NOTE | 2023-06-01 05:48 | PC.NURSE ---
555ml diet pepsi, 250 water
[2023-06-01] MEDS: BRIMONIDINE TARTRATE 0.15 % OP SOL 100 DROP/5 ML BOTTLE EYE-LEFT ×3 (06:09→22:33)
[2023-06-01] MEDS: TIMOLOL MALEATE 0.5% OP SOL 100 DROPS/5 ML BOTTLE 1 DROP EYE-LEFT ×3 (06:09→22:33)
[2023-06-01] MEDS: DORZOLAMIDE HCL 2% OP SOL 200 DROP/10 ML BOTTLE EYE-LEFT ×3 (06:10→22:34)
[2023-06-01] MEDS: ACETYLCYSTEINE 400 MG/4 ML VIAL 200 MG IH ×3 (07:17→23:29)
[2023-06-01] MEDS: ENSURE CLEAR 237 ML LIQUID PO ×2 (10:07→20:28)
[2023-06-01] MEDS: LISINOPRIL 10 MG TABLET PO (10:07)
[2023-06-01] MEDS: GUAIFENESIN 600 MG TAB.ER.12H PO ×2 (10:07→20:28)
[2023-06-01] MEDS: FLUCONAZOLE IN NACL,ISO-OSM 200 MG/100 ML PIGGYBACK 100 MG IV (10:09)
--- NOTE | 2023-06-01 10:39 | CM.NOTE ---
Rounds made with Dr. Cuevas, pt will discharge today. RN to do walk test for possible home oxygen.
[2023-06-01 11:04] LABS: Glucometer 150 mg/dL (74-106)
--- NOTE | 2023-06-01 11:32 | RESP.RT ---
placed on 1 LPM NC, SpO2 did not rise past 87. Increased to 2 LPM, SpO2 slowly ludwin to 91%
--- NOTE | 2023-06-01 11:38 | CM.NOTE ---
Called [address] for update, pt will discharge to home today.
--- NOTE | 2023-06-01 12:43 | P.DS_ITS ---
<Statement entered by Vivek Cuevas MD - 06/03/23 07:29> Pt seen and examined at bedside - pt up in chair. Agree with PE, input and diagnosis and plan of Care - if has further episode of NSVT despite symptoms would likley transfer for further electrophysiologic studies - labs were repeat ed and no abnormalities found e This documentation has been reviewed and approved. DS: Providers Provider Date of admission: 05/23/23 15:36 Primary care physician: Elías Carey DO Consults: 05/23/23 15:51 Occupational Therapy Eval and Treat Routine Reason for consultation: physical deconditioning Has provider been notified: No Physical Therapy Eval and Treat Routine Reason for consultation: physical deconditioning Has provider been notified: No 05/27/23 07:56 Consult to PICC Line RN Routine Consulting Provider: Vivek Cuevas Reason for consultation: neeeds picc or midline - Has provider been notified: No 05/29/23 10:17 Consult to Pulmonology Routine Consulting Provider: Abraham Simms Reason for consultation: Peristent hypoxia despite appr COPD/PNA tx Has provider been notified: No Discharging clinician: Lisa Null DS: Diagnosis Discharge Diagnosis (1) Sepsis: Qualifiers: Acute respiratory failure type: with hypoxia Sepsis acute organ dysfunction status: with acute organ dysfunction Sepsis type: sepsis due to unspecified organism Severe sepsis acute organ dysfunction type: acute respiratory failure Severe sepsis shock status: without septic shock Qualified Code(s): A41.9 - Sepsis, unspecified organism; R65.20 - Severe sepsis without septic shock; J96.01 - Acute respiratory failure with hypoxia (2) Acute exacerbation of chronic obstructive pulmonary disease (COPD): (3) Community acquired pneumonia: Qualifiers: Laterality: unspecified laterality Qualified Code(s): J18.9 - Pneumonia, unspecified organism (4) Acute respiratory failure with hypoxemia: (5) UTI (urinary tract infection): Qualifiers: Hematuria presence: without hematuria Urinary tract infection type: acute cystitis Qualified Code(s): N30.00 - Acute cystitis without hematuria (6) Conjunctivitis: Qualifiers: Acute conjunctivitis type: bacterial Conjunctivitis type: acute Laterality: bilateral Qualified Code(s): H10.33 - Unspecified acute conju nctivitis, bilateral (7) Hypotension: Qualifiers: Hypotension type: other hypotension type Qualified Code(s): I95.89 - Other hypotension (8) Dehydration: (9) Weakness: (10) Peripheral edema: (11) Hyperlipidemia: Qualifiers: Hyperlipidemia type: unspecified Qualified Code(s): E78.5 - Hyperlipidemia, unspecified (12) HTN (hypertension): Qualifiers: Hypertension type: primary hypertension Qualified Code(s): I10 - Essential (primary) hypertension (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 She had associated hypotension and dehydration on admission. Sepsis with associated hypotension and dehydration d/t CAP/UTI: Her sepsis was treated with IVFs including a 30 ml/kg bolus on arrival to the ED. Her infections were initially treated with IVPB Rocephin and azithromycin. When her respiratory status was slow to improve her antibiotic coverage was broadened to include double gram neg coverage with Zosyn and Levaquin. Sputum mobilization was encouraged with scheduled guaifenisen and OPEP therapy. A sputum culture was obtained but was unhelpful as it only grew out normal oral al. Blood cultures remained negative x 5 days. Her urine culture grew out e-coli sensitive to Rocephin, Zosyn and Levaquin. Her sepsis/hypotension/dehydration resolved with these treatments and IVFs were discontinued. Her BP remained stable throughout the remainder of her stay and her antihypertensives were resumed prior to discharge. Her infections were fully treated with a 10 day course of appropriate antibiotics and no further antibiotic therapy is indicated at discharge. Acute respiratory failure with hypoxemia 2/2 CAP, COPD exacerbation, and mucous plugging: The pt evidenced significant hypoxia on admission that was slow to improved. Initially thought to be 2/2 CAP alone, we clinically suspected acute COPD exacerbation. The pt has no known dx of COPD, but with a 30 PYH of smoking undoubtedly has COPD at baseline. (She quit smoking in 2007.) Persistent pursed lip breathing, wheezing, tripoding, and prolonged expiratory phase clinically supported this diagnosis. She was initiated on high dose IVP steroids and scheduled breathing nebulized treatments along with treatments already noted above. A 2D echo did not reveal any concerning CHF changes. A CTA chest was obtained to r/o PE which was neg, but did reveal bilateral scattered mucous plugging. She was initiated on IPV therapy and then on scheduled mucomyst treatments with significantly improved sputum mobilization noted. Dr Simms, freezer worker was consulted. He agreed with treatment modalities already initiated. He deferred bronchoscopy or thoracentesis as interventions that carried more risk than benefit at this time. He will follow with the patient in his outpatient clinic after discharge. Although we attempted to wean her off of oxygen supplementation, the pt continued to require O2 at 1-2 Liters continuously to maintain sats above 90%. She is being discharged home with supplemental O2 therapy at 1-2 liters. She has been cautioned to be very careful not to trip on the oxygen tubing during ambulation as she is blind. Her IVP steroids were weaned down prior to discharge. She is being discharged with a prescription for a long prednisone taper, scheduled Wixela, and PRN albuterol nebulizer treatments. Weakness: The pt was very weak on admission d/t sepsis and acute infections. She was seen in consult by PT/OT and notably improved. She continues to be weaker than baseline and is being discharged with home health services for close nursing monitoring of her respiratory status and continued PT strengthening. Conjunctivitis: Acute, purulent bilateral conjunctivitis was noted on admission. This was successfully and fully treated with a 5 day course of sulfacetamide gtts. No further treatment is indicated. The patient is being discharged home in stable condition with continuous home O2 therapy, long prednisone taper, new wixela therapy BID, and PRN albuterol nebulizer treatments. She should follow up with her PCP in 5-7 days and with Pulmonology in 1-2 weeks. ADDENDUM 06/01/23 1540: Pt sitting in bedside chair awaiting d/c. x ray service technician noted 13 beat run of non-sustained Vtach. Pt completely asymptomatic and reports feeling exactly the same as this morning. Cancel d/c today. Recheck BMP, Mag, Cardiac enzymes. Start Coreg 6.25 BID and monitor response, continue tele. If Vtach recurs briefly but is non-sustained and pt remains asymptomatic, ok to d/c home in AM w/ cardiac event monitor and follow up with cardiology as an outpatient. If sustained/symptomatic Vtach occurs, emergent cardiac evaluation advised which will likely indicate transfer to a higher level of care as we do not have cardiology onsite for the next 3 days. Status at Discharge Overall status at discharge: patient is progressing back to baseline Time Spent with Patient Time attestation: Total time spent providing and/or coordinating discharge services: Time spent: greater than 30 minutes Specific discharge activities: Physical exam, discussion of discharge plan, questions answered. Exam Constitutional Vital Signs, click to edit/add: Last Vital Signs Temp 97.7 F 06/01/23 04:49 Pulse 70 06/01/23 11:50 Resp 18 06/01/23 04:49 BP 160/76 H 06/01/23 04:49 Pulse Ox 86 L 06/01/23 11:27 O2 Del Method Room Air 06/01/23 11:27 O2 Flow Rate 1 06/01/23 07:18 Common normals: no apparent distress, oriented x3 and alert General appearance: cooperative Orientation/consciousness: Yes awake HENMT Common normals: normocephalic and head/scalp atraumatic Eye Common normals: EOMs intact bilaterally, conjunctivae normal and no scleral icterus Neck & C-Spine Common normals: no JVD Respiratory Common normals: normal respiratory effort and no use of accessory muscles Effort & inspection: able to speak in complete sentences and symmetric chest movement Auscultation: wheezes (Faint scattered EE - Improving) and diminished lung sounds (Very diminished BLL) Other: Legally blind Cardio Common normals: no JVD, regular rate, regular rhythm, S1 normal heart sound, S2 normal heart sound and peripheral pulses 2+ throughout Heart sounds: murmur (HSM 3/6) GI Common normals: Normal to inspection, nondistended, normoactive bowel sounds present, soft to palpation and non-tender Bladder/kidney exam: bladder normal to palpation Extremity Common normals: normal to inspection, full ROM and normal capillary refill General: edema (Trace bilat insteps); no clubbing and no cyanosis Neuro Common normals: moves all extremities, no focal motor deficits and no sensory deficits noted Speech: speech normal Psych Common normals: mental status grossly normal and activity/motor behavior normal DS: Data Data Completed and Pending Labs on day of discharge: Labs from last 24 hours 06/01/23 06/01/23 05/31/23 11:03 04:02 20:24 WBC 8.7 RBC 4.46 Hgb 13.4 Hct 43.0 MCV 96.4 MCH 30.0 MCHC 31.2 RDW 13.6 Plt Count 259 MPV 8.8 L Neut % (Auto) 92.4 H Lymph % (Auto) 2.5 L [place] % (Auto) 3.7 Eos % (Auto) 0.0 L Baso % (Auto) 0.1 L Neut # (Auto) 8.0 H Lymph # (Auto) 0.2 L [place] # (Auto) 0.3 Eos # (Auto) 0.0 Baso # (Auto) 0.0 Abs Immat Gran (auto) 0.11 H Imm/Tot Granulo (auto) 1.3 H Sodium 138 Potassium 5.0 Chloride 103 Carbon Dioxide 36.5 H Anion Gap 3.5 BUN 30.0 H Creatinine 0.68 Est GFR ( Amer) >60 Est GFR (Non-Af Amer) >60 BUN/Creatinine Ratio 44.1 Glucose 130 H Calcium 8.8 Total Bilirubin 0.4 AST 11 L ALT 23 Alkaline Phosphatase 60 NT-Pro-B Natriuret Pep 379.0 Total Protein 5.3 L Albumin 2.1 L Globulin 3.2 Albumin/Globulin Ratio 0.7 POC Glucose 150 H 202 H 05/31/23 17:56 WBC RBC Hgb Hct MCV MCH MCHC RDW Plt Count MPV Neut % (Auto) Lymph % (Auto) [place] % (Auto) Eos % (Auto) Baso % (Auto) Neut # (Auto) Lymph # (Auto) [place] # (Auto) Eos # (Auto) Baso # (Auto) Abs Immat Gran (auto) Imm/Tot Granulo (auto) Sodium Potassium Chloride Carbon Dioxide Anion Gap BUN Creatinine Est GFR ( Amer) Est GFR (Non-Af Amer) BUN/Creatinine Ratio Glucose Calcium Total Bilirubin AST ALT Alkaline Phosphatase NT-Pro-B Natriuret Pep Total Protein Albumin Globulin Albumin/Globulin Ratio POC Glucose 107 H Imaging Chest x-ray: Radiologist's impression: 05/23/23 IMPRESSION: 1. Mild-moderate left basilar infiltrates suggestive of pneumonia. Pleural effusion cannot be excluded. 2. Trace amount of right basilar infiltrates. 05/26/23 IMPRESSION: Chest is similar to previous exam done 2 days prior. The amount of left pleural fluid and associated atelectasis/infiltrate appear to have decreased slightly since that previous exam. 05/27/23 IMPRESSION: Today's exam shows more airspace disease of the lower half the left lung than previous exam which either represents progressing atelectasis or progressing inflammatory infiltrate. Chest is otherwise stable from previous day. CT scan - head: Radiologist's impression: IMPRESSION: 1. No acute intracranial hemorrhage. 2. 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 3. Small focus of of encephalomalacia at the left posterior parietal lobe. There is also a small focus of hypoattenuation/encephalomalacia at the left frontal lobe. Acute ischemia/extension of ischemia at site of encephalomalacia cannot be excluded by noncontrast CT. If clinically indicated, brain MRI may be performed for further evaluation. Correlate with clinical history and physical examination. If the patient has a focal neurologic deficit or there is clinical suspicion for acute cerebrovascular accident, brain MRI would be recommended for further evaluation. 2D echo: Radiologist's impression: CONCLUSION: 1. Global left ventricular systolic function is hyperdynamic; visually estimated ejection fraction is 70 to 75% 2. Normal right ventricular size and systolic function 3. Mild biatrial dilatation 4. Mild tricuspid regurgitation; severely elevated right sided pressures RVSP 61 mmHg 5. Mild mitral regurgitation 6. Mild to moderate aortic stenosis; velocities may be falsely elevated due to hyperdynamic left ventricular systolic function CT scan - chest: Radiologist's impression: IMPRESSION: No CT findings to suggest pulmonary embolism. Moderate left pleural effusion. Wedge-shaped area of opacity in the lingula, most or all of which favors to represent atelectasis due to small airway obstruction. This may be due to a mucous plug, versus sequelae of granulomatous hilar fibrosis, as there are also bilateral calcified hilar lymph nodes and mild soft tissue thickening of the deshawn. Small area of endobronchial mucous plugging seen within a few subsegmental airways in the right lower lobe as well. Discharge Plan Discharge Disposition: Home Health Service Condition: Good Discharge Medications: New prednisone 10 mg tablet See Rx Instructions .ROUTE .COMPLEX Qty: 30 0RF Rx Instructions: 5 tabs daily x 2 days, then 4 tabs daily x 2 days, then 3 tabs daily x 2 days, then 2 tabs daily x 2 days, then 1 tab daily x 2 days, then STOP fluticasone propion-salmeterol [Wixela Inhub] 500-50 mcg/dose blister with device 1 inh inhalation BID Qty: 60 0RF albuterol sulfate 2.5 mg /3 mL (0.083 %) solution for nebulization 2.5 mg inhalation Q4H PRN (Reason: shortness of breath or wheezing) Qty: 180 0RF carvedilol [Coreg] 6.25 mg tablet 6.25 mg PO BID Qty: 60 0RF Rx Instructions: must administer with a meal/food Continued aspirin [Adult Aspirin Regimen] 81 mg tablet,delayed release (DR/EC) 81 mg PO DAILY benazepril 10 mg tablet 10 mg PO DAILY atorvastatin 10 mg tablet 10 mg PO .evening latanoprost 0.005 % drops 1 drp OPHTHALMIC (EYE) .qhs Rx Instructions: both eyes dorzolamide 2 % drops 1 drp OPHTHALMIC (EYE) TID Rx Instructions: LEFT EYE brimonidine-timolol 0.2-0.5 % drops 1 drp OPHTHALMIC (EYE) TID Rx Instructions: left eye Activity Restrictions/Additional Instructions: - Home oxygen at 1-2 Liters at all times. - Cardiac event monitor (Nonsustained Vtach) Lead Material Handler/Papier Mache' Molder Instructions: [facility] [phone] [facility] for Home Oxygen. Patient must call [phone] so they can come to home and get her setup Forms: Portal Instructions Follow Up Appointments: - Jun.12 @ 9:30am with Dr. Carey [phone] - Follow up with Dr. Simms (pulmonary) in 1-2 weeks if possible [phone]
--- NOTE | 2023-06-01 13:43 | PT.DAILY ---
Physical Therapy Daily Note PT Daily Note/Assess Start: 05/25/23 11:16 Freq: Status: Active Protocol: Document 06/01/23 10:20 BRENDEN (Rec: 06/01/23 13:43 BRENDEN [id number]) Physical Therapy Daily Note/Assessment Time In/Time Out Time In 10:20 Time Out 10:35 Subjective Subjective MD is just leaving room, patient states she is going home later. Agrees to exercise . Reports feeling better. Therapeutic Exercise Time Therapeutic Exercise Minutes (minutes) 10 Therapeutic Exercise Units 1 Therapeutic Exercise Treatment Therapeutic Exercise Treatment Seated exercises 10 reps from both long seated position ( chair reclined up) and regular seated position with AROM and isometrics to promote improved strength. Therapeutic Activity Time Therapeutic Activity Minutes (minutes) 5 Therapeutic Activity Units 0 Therapeutic Activity Treatment Chair Transfer Ability Standby Assistance Therapeutic Activity Comments Sit to stand and step 5x on O2 . Total Physical Therapy Time Total Therapy Minutes 15 Total Physical Therapy Units 1 Summary Daily Note Summary Progressing with strengthening exercises. Recommend HH with DC home anticipated later today.
--- NOTE | 2023-06-01 14:54 | CM.NOTE ---
Attempted to call [facility] for acceptance of new referral, closed for Holiday on hold for new referral for 8 minutes with no answer. Faxed to cancel new referral
--- NOTE | 2023-06-01 14:55 | CM.NOTE ---
Faxed new referral to [facility] and called [facility] faxed received awaiting acceptance.
--- NOTE | 2023-06-01 15:14 | CM.NOTE ---
Referral sent to [facility] for home oxygen and nebulizer. Yesenia at [facility] states she is approved and she will need to call [place] once she arrives at home and they will come and get her set up.
--- NOTE | 2023-06-01 15:29 | CM.NOTE ---
Faxed discharge summary, CRF, and med-list to [address] Pt accepted for [facility] and given number to contact [facility] at discharge.
[2023-06-01 16:13] LABS: Glucometer 120 mg/dL (74-106)
[2023-06-01 16:21] LABS: Magnesium 2.3 mg/dL (1.8-2.4)
[2023-06-01 16:38] LABS: Anion Gap 4.9; BUN Creatinine Ratio 33.7; Calcium 8.5 mg/dL (8.5-10.1); Carbon Dioxide 33.4 mmol/L (21.0-32.0); Chloride 104 mmol/L (98-107); Creatine Kinase 53 U/L (26-192); Creatine Kinase MB 0.75 ng/mL (<=3.60); Estimated GFR (African America >60 (>=60); Estimated GFR (Non-African Ame >60 (>=60); Glucose 121 mg/dL (74-106); Myoglobin 59 ng/mL (9-82); Potassium 4.3 mmol/L (3.5-5.1); Sodium 138 mmol/L (136-145); Troponin I High Sensitivity 12.8 pg/mL (4.0-51.3)
[2023-06-01] MEDS: CARVEDILOL 6.25 MG TABLET PO (16:55)
[2023-06-01] MEDS: ENOXAPARIN SODIUM 40 MG/0.4 ML SYRINGE SUBQ (16:55)
[2023-06-01 20:46] LABS: Creatine Kinase 50 U/L (26-192); Creatine Kinase MB 0.64 ng/mL (<=3.60); Troponin I High Sensitivity 11.6 pg/mL (4.0-51.3)
[2023-06-01 21:38] LABS: Glucometer 183 mg/dL (74-106)
[2023-06-01] MEDS: LATANOPROST 0.005% 2.5 ML BOTTLE 1 DROP EYE-BOTH (22:33)
[2023-06-01] MEDS: INSULIN ASPART 300 UNIT/3 ML PEN SUBQ (22:39)
[2023-06-02] VITALS (22 sets, daily range): BP systolic 132–157; BP diastolic 71–88; PULSE 55–92; RESP 18–22; TEMP 36.1–36.6; O2SAT 6–96
[2023-06-02] MEDS: IPRATROPIUM/ALBUTEROL SULFATE 3 ML AMPUL.NEB IH ×5 (03:58→23:01)
[2023-06-02] MEDS: PIPERACILLIN SODIUM/TAZOBACTAM 3.375 GM in 0.9 % SODIUM CHLORIDE 50 ML IV ×3 (05:16→20:34)
[2023-06-02 05:51] LABS: Basophils Percent Auto 0.2 % (0.2-2.0); Eosinophils Absolute Auto 0.1 10^3/uL (0.0-0.7); Hematocrit 42.6 % (36.0-48.0); Hemoglobin 13.6 g/dL (12.0-16.0); Immature Granulocytes Abs Auto 0.08 10^3/uL (0.00-0.03); Immature Granulocytes Pct Auto 1.4 % (0.0-0.5); Lymphocytes Absolute Auto 0.8 10^3/uL (1.2-3.8); Lymphocytes Percent Auto 14.3 % (20.5-60.0); Mean Corpuscular HGB Conc 31.9 g/dL (29.9-35.2); Mean Corpuscular Hemoglobin 30.6 pg (26.7-34.0); Mean Corpuscular Volume 95.9 fL (81.0-99.0); Mean Platelet Volume 9.1 fL (9.5-13.5); Monocytes Absolute Auto 0.6 10^3/uL (0.3-0.8); Neutrophils Absolute Auto 4.1 10^3/uL (1.4-6.5); Neutrophils Percent Auto 72.1 % (43.0-75.0); Platelet Count 236 10^3/uL (150-450); Red Blood Count 4.44 10^6/uL (4.20-5.40); Red Cell Distribution Width 13.5 % (11.0-15.0); White Blood Count 5.7 10^3/uL (4.0-11.0)
[2023-06-02 06:26] LABS: Alanine Aminotransferase 28 U/L (14-59); Albumin Globulin Ratio 0.7; Albumin Level 2.1 g/dL (3.4-5.0); Alkaline Phosphatase 59 U/L (46-116); Anion Gap 5.3; Aspartate Amino Transferase 14 U/L (15-37); BUN Creatinine Ratio 42.1; Bilirubin Total 0.5 mg/dL (0.2-1.0); Calcium 8.3 mg/dL (8.5-10.1); Carbon Dioxide 35.3 mmol/L (21.0-32.0); Chloride 106 mmol/L (98-107); Estimated GFR (African America >60 (>=60); Estimated GFR (Non-African Ame >60 (>=60); Globulin 2.9 g/dL; Glucose 89 mg/dL (74-106); Potassium 4.6 mmol/L (3.5-5.1); Sodium 142 mmol/L (136-145)
[2023-06-02] MEDS: DORZOLAMIDE HCL 2% OP SOL 200 DROP/10 ML BOTTLE EYE-LEFT ×3 (06:41→21:39)
[2023-06-02] MEDS: TIMOLOL MALEATE 0.5% OP SOL 100 DROPS/5 ML BOTTLE 1 DROP EYE-LEFT ×3 (06:42→21:38)
[2023-06-02] MEDS: BRIMONIDINE TARTRATE 0.15 % OP SOL 100 DROP/5 ML BOTTLE EYE-LEFT ×3 (06:42→21:38)
[2023-06-02] MEDS: ACETYLCYSTEINE 400 MG/4 ML VIAL 200 MG IH ×3 (07:16→23:01)
[2023-06-02] MEDS: ENSURE CLEAR 237 ML LIQUID PO ×2 (08:20→20:34)
[2023-06-02] MEDS: METHYLPREDNISOLONE SOD SUCC PF 40 MG/ML VIAL IVP ×2 (08:20→16:50)
[2023-06-02] MEDS: CARVEDILOL 6.25 MG TABLET PO ×2 (08:21→16:51)
[2023-06-02] MEDS: LISINOPRIL 10 MG TABLET PO (08:21)
[2023-06-02] MEDS: GUAIFENESIN 600 MG TAB.ER.12H PO ×2 (08:22→20:34)
[2023-06-02] MEDS: FLUCONAZOLE IN NACL,ISO-OSM 200 MG/100 ML PIGGYBACK 100 MG IV (09:15)
--- NOTE | 2023-06-02 09:49 | XR_ITS ---
The [address] [address] Patient Name: YUMI DREW MRN: [id number] date: 1940 Sex: F Assigned Patient Location: [place] Current Patient Location: [place] Accession/Order Number: [id number] Exam Date: 06/02/2023 10:50 Report Date: 06/02/2023 13:29 At the request of: SHAIKH PK Procedure: XR chest 1V EXAM: XR chest 1V 06/02/2023 COMPARISON STUDY: CT of the chest 05/27/2023. FINDINGS: Upright AP chest image was obtained. HISTORY: SOB. XR/XR chest 1V IMPRESSION: 1. Small persistent bilateral pleural effusions, left larger than right, again noted. Adjacent bibasilar predominant compressive atelectasis/pneumonitis persists. 2. Mild background central vascular crowding/congestion with early edema pattern superimposed upon upper lobe predominant emphysema again suggested. Heart size is similarly enlarged. 3. Background sequela of old healed granulomatous disease again noted. 4. There is no pneumothorax. The osseous structures are stable. Electronically authenticated by: CALLUM SAWANT Date: 06/02/2023 13:29
--- NOTE | 2023-06-02 11:42 | PT.DAILY ---
Physical Therapy Daily Note PT Daily Note/Assess Start: 05/25/23 11:16 Freq: Status: Active Protocol: Document 06/02/23 10:45 BRENDEN (Rec: 06/02/23 11:42 BRENDEN [id number]) Physical Therapy Daily Note/Assessment Time In/Time Out Time In 10:45 Time Out 11:00 Subjective Subjective Patient is hopeful to go home today, unsure why she didn't leave yesterday after being told she was going home. Spirits are still high and patient is pleasant to work with. Therapeutic Exercise Time Therapeutic Exercise Minutes (minutes) 5 Therapeutic Exercise Units 0 Therapeutic Exercise Treatment Therapeutic Exercise Treatment Seated exercises 10-15 reps all planes as tolerates. Therapeutic Activity Time Therapeutic Activity Minutes (minutes) 10 Therapeutic Activity Units 1 Therapeutic Activity Treatment Chair Transfer Ability Standby Assistance Therapeutic Activity Comments Sit to stand at chair SBA. Gait with RW min assist to help with maneuvering through room and with O2 line due to poor sight, for balance strength patient was only supervision. Denies feeling SOB. Repositioned into chair, and then x-ray present post RX . Total Physical Therapy Time Total Therapy Minutes 15 Total Physical Therapy Units 1 Summary Daily Note Summary Patient continues to do well with exercise and gait. No significant improvements or declines at this time. Recommend HH PT as patient has family at home that will also assist in care.
[2023-06-02 11:55] LABS: Glucometer 159 mg/dL (74-106)
--- NOTE | 2023-06-02 12:38 | PM.IMPN1 ---
Progress Note: A&P Assessment and Plan (1) Sepsis: Assessment and Plan: Resolved S/p abx for Pneumonia and UTI Qualifiers: Sepsis type: sepsis due to unspecified organism Sepsis acute organ dysfunction status: with acute organ dysfunction Severe sepsis acute organ dysfunction type: acute respiratory failure Acute respiratory failure type: with hypoxia Severe sepsis shock status: without septic shock Qualified Code(s): A41.9 - Sepsis, unspecified organism; R65.20 - Severe sepsis without septic shock; J96.01 - Acute respiratory failure with hypoxia (2) Acute exacerbation of chronic obstructive pulmonary disease (COPD): Assessment and Plan: She is still not moving air and has diminished air entry on exam. I will increase her steroids to 40 q8. C/w duonebs, mucomyst. (3) Community acquired pneumonia: Assessment and Plan: s/p rx with abx. Appears comfortable and in no acute distress. Repeat CXR Qualifiers: Laterality: unspecified laterality Qualified Code(s): J18.9 - Pneumonia, unspecified organism (4) Acute respiratory failure with hypoxemia: Assessment and Plan: Increased O2 requirement. On 2 L today. She was on 1 L yesterday. repeat CXR. (5) UTI (urinary tract infection): Assessment and Plan: S/P rx with abx Qualifiers: Urinary tract infection type: acute cystitis Hematuria presence: without hematuria Qualified Code(s): N30.00 - Acute cystitis without hematuria (6) Hypotension: Assessment and Plan: Resolved. due to sepsis. on Lisinopril now Qualifiers: Hypotension type: other hypotension type Qualified Code(s): I95.89 - Other hypotension (7) Dehydration: Assessment and Plan: Resolved. Appears volume overload on exam today. (8) Weakness: Assessment and Plan: Due to prolonged illness, hospital stay. C/w PT/OT (9) Peripheral edema: Assessment and Plan: On dose of IV lasix ordered. (10) HTN (hypertension): Assessment and Plan: On Lisinopril. 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 She is on 2 L O2 via NC. Increased requirement. Drops her Oxygen down to 86%. No overnight events. She looks comfortable and feels well. Exam Constitutional Vital Signs, click to edit/add: Last Vital Signs Temp 97.8 F 06/02/23 05:29 Pulse 64 06/02/23 12:04 Resp 18 06/02/23 05:29 BP 132/71 06/02/23 05:29 Pulse Ox 92 L 06/02/23 07:17 O2 Del Method Nasal Cannula 06/02/23 07:17 O2 Flow Rate 2 06/02/23 07:17 Documenting provider has reviewed patient's vital signs: yes Common normals: no apparent distress and oriented x3 General appearance: cooperative Respiratory Common normals: normal respiratory effort Effort & inspection: able to speak in complete sentences Auscultation: diminished lung sounds Cardio Common normals: regular rate, S1 normal heart sound and S2 normal heart sound Rate: regular rate Heart sounds: S1 normal and S2 normal Internal Medicine - PN: Obj Da Labs Labs: Laboratory Results - last 24 hr 06/01/23 06/01/23 06/01/23 16:05 16:12 20:23 WBC RBC Hgb Hct MCV MCH MCHC RDW Plt Count MPV Neut % (Auto) Lymph % (Auto) [place] % (Auto) Eos % (Auto) Baso % (Auto) Neut # (Auto) Lymph # (Auto) [place] # (Auto) Eos # (Auto) Baso # (Auto) Abs Immat Gran (auto) Imm/Tot Granulo (auto) Sodium 138 Potassium 4.3 Chloride 104 Carbon Dioxide 33.4 H Anion Gap 4.9 BUN 30.0 H Creatinine 0.89 Est GFR ( Amer) >60 Est GFR (Non-Af Amer) >60 BUN/Creatinine Ratio 33.7 Glucose 121 H Calcium 8.5 Magnesium 2.3 Total Bilirubin AST ALT Alkaline Phosphatase Total Creatine Kinase 53 50 CK-MB (CK-2) 0.75 0.64 Myoglobin 59 Troponin I High Sens 12.8 11.6 NT-Pro-B Natriuret Pep Total Protein Albumin Globulin Albumin/Globulin Ratio POC Glucose 120 H 06/01/23 06/02/23 06/02/23 21:35 05:12 11:54 WBC 5.7 RBC 4.44 Hgb 13.6 Hct 42.6 MCV 95.9 MCH 30.6 MCHC 31.9 RDW 13.5 Plt Count 236 MPV 9.1 L Neut % (Auto) 72.1 Lymph % (Auto) 14.3 L [place] % (Auto) 11.0 Eos % (Auto) 1.0 Baso % (Auto) 0.2 Neut # (Auto) 4.1 Lymph # (Auto) 0.8 L [place] # (Auto) 0.6 Eos # (Auto) 0.1 Baso # (Auto) 0.0 Abs Immat Gran (auto) 0.08 H Imm/Tot Granulo (auto) 1.4 H Sodium 142 Potassium 4.6 Chloride 106 Carbon Dioxide 35.3 H Anion Gap 5.3 BUN 24.0 H Creatinine 0.57 Est GFR ( Amer) >60 Est GFR (Non-Af Amer) >60 BUN/Creatinine Ratio 42.1 Glucose 89 Calcium 8.3 L Magnesium Total Bilirubin 0.5 AST 14 L ALT 28 Alkaline Phosphatase 59 Total Creatine Kinase CK-MB (CK-2) Myoglobin Troponin I High Sens NT-Pro-B Natriuret Pep 279.0 Total Protein 5.0 L Albumin 2.1 L Globulin 2.9 Albumin/Globulin Ratio 0.7 POC Glucose 183 H 159 H
[2023-06-02] MEDS: FUROSEMIDE 40 MG/4 ML VIAL IVP (13:47)
--- NOTE | 2023-06-02 16:04 | RESP.RT ---
pulse ox taken on left ear
[2023-06-02 16:17] LABS: Glucometer 251 mg/dL (74-106)
[2023-06-02] MEDS: ENOXAPARIN SODIUM 40 MG/0.4 ML SYRINGE SUBQ (16:50)
[2023-06-02] MEDS: INSULIN ASPART 300 UNIT/3 ML PEN SUBQ ×2 (16:53→21:36)
[2023-06-02 21:37] LABS: Glucometer 142 mg/dL (74-106)
[2023-06-02] MEDS: LATANOPROST 0.005% 2.5 ML BOTTLE 1 DROP EYE-BOTH (21:38)
[2023-06-03] VITALS (12 sets, daily range): BP systolic 162; BP diastolic 73; PULSE 50–76; RESP 20–24; TEMP 36.3; O2SAT 92–93
[2023-06-03] MEDS: METHYLPREDNISOLONE SOD SUCC PF 40 MG/ML VIAL IVP ×2 (01:08→08:33)
[2023-06-03] MEDS: IPRATROPIUM/ALBUTEROL SULFATE 3 ML AMPUL.NEB IH ×3 (03:58→11:50)
[2023-06-03] MEDS: PIPERACILLIN SODIUM/TAZOBACTAM 3.375 GM in 0.9 % SODIUM CHLORIDE 50 ML IV (05:18)
[2023-06-03 05:30] LABS: Basophils Percent Auto 0.1 % (0.2-2.0); Hematocrit 42.9 % (36.0-48.0); Hemoglobin 13.6 g/dL (12.0-16.0); Immature Granulocytes Abs Auto 0.07 10^3/uL (0.00-0.03); Immature Granulocytes Pct Auto 0.9 % (0.0-0.5); Lymphocytes Absolute Auto 0.3 10^3/uL (1.2-3.8); Lymphocytes Percent Auto 4.2 % (20.5-60.0); Mean Corpuscular HGB Conc 31.7 g/dL (29.9-35.2); Mean Corpuscular Hemoglobin 30.2 pg (26.7-34.0); Mean Corpuscular Volume 95.1 fL (81.0-99.0); Mean Platelet Volume 9.2 fL (9.5-13.5); Monocytes Absolute Auto 0.1 10^3/uL (0.3-0.8); Monocytes Percent Auto 1.5 % (1.7-12.0); Neutrophils Absolute Auto 7.4 10^3/uL (1.4-6.5); Neutrophils Percent Auto 93.3 % (43.0-75.0); Platelet Count 232 10^3/uL (150-450); Red Blood Count 4.51 10^6/uL (4.20-5.40); Red Cell Distribution Width 13.5 % (11.0-15.0)
[2023-06-03 06:00] LABS: Alanine Aminotransferase 28 U/L (14-59); Albumin Globulin Ratio 0.6; Albumin Level 2.2 g/dL (3.4-5.0); Alkaline Phosphatase 62 U/L (46-116); Anion Gap 5.9; Aspartate Amino Transferase 16 U/L (15-37); BUN Creatinine Ratio 40.9; Bilirubin Total 0.6 mg/dL (0.2-1.0); Chloride 101 mmol/L (98-107); Estimated GFR (African America >60 (>=60); Estimated GFR (Non-African Ame >60 (>=60); Globulin 3.4 g/dL; Glucose 154 mg/dL (74-106); Potassium 4.9 mmol/L (3.5-5.1); Sodium 138 mmol/L (136-145); Total Protein 5.6 g/dL (6.4-8.2)
[2023-06-03] MEDS: TIMOLOL MALEATE 0.5% OP SOL 100 DROPS/5 ML BOTTLE 1 DROP EYE-LEFT (06:19)
[2023-06-03] MEDS: BRIMONIDINE TARTRATE 0.15 % OP SOL 100 DROP/5 ML BOTTLE EYE-LEFT (06:19)
[2023-06-03] MEDS: DORZOLAMIDE HCL 2% OP SOL 200 DROP/10 ML BOTTLE EYE-LEFT (06:19)
[2023-06-03] MEDS: ACETYLCYSTEINE 400 MG/4 ML VIAL 200 MG IH (07:42)
[2023-06-03] MEDS: ENSURE CLEAR 237 ML LIQUID PO (08:32)
[2023-06-03] MEDS: GUAIFENESIN 600 MG TAB.ER.12H PO (08:33)
[2023-06-03] MEDS: CARVEDILOL 6.25 MG TABLET PO (08:33)
[2023-06-03] MEDS: INSULIN ASPART 300 UNIT/3 ML PEN SUBQ ×2 (08:33→11:47)
[2023-06-03] MEDS: LISINOPRIL 10 MG TABLET PO (08:33)
--- NOTE | 2023-06-03 11:42 | PM.DS1 ---
DS: Providers Provider Date of admission: 05/23/23 15:36 Primary care physician: Elías Carey DO Consults: 05/23/23 15:51 Occupational Therapy Eval and Treat Routine Reason for consultation: physical deconditioning Has provider been notified: No Physical Therapy Eval and Treat Routine Reason for consultation: physical deconditioning Has provider been notified: No 05/27/23 07:56 Consult to PICC Line RN Routine Consulting Provider: Vivek Cuevas Reason for consultation: neeeds picc or midline - Has provider been notified: No 05/29/23 10:17 Consult to Pulmonology Routine Consulting Provider: Abraham Simms Reason for consultation: Peristent hypoxia despite appr COPD/PNA tx Has provider been notified: No Attending physician on discharge: Shaikh Aleks Discharging clinician: Shaikh Aleks DS: Diagnosis Discharge Diagnosis (1) Sepsis: Assessment and plan: Resolved. Stable hemodynamics. S/p rx. Qualifiers: Sepsis type: sepsis due to unspecified organism Sepsis acute organ dysfunction status: with acute organ dysfunction Severe sepsis acute organ dysfunction type: acute respiratory failure Acute respiratory failure type: with hypoxia Severe sepsis shock status: without septic shock Qualified Code(s): A41.9 - Sepsis, unspecified organism; R65.20 - Severe sepsis without septic shock; J96.01 - Acute respiratory failure with hypoxia (2) Acute exacerbation of chronic obstructive pulmonary disease (COPD): Assessment and plan: Will d/c on PO prednisone taper. She does not have a formal diagnosis of COPD. But she likely does due to years long hx of smoking. Needing 1 L O2 and have not been able to get her off of O2. Will d/c on hoem O2. (3) Community acquired pneumonia: Assessment and plan: S/P rx. No need for abx on discharge Qualifiers: Laterality: unspecified laterality Qualified Code(s): J18.9 - Pneumonia, unspecified organism (4) Acute respiratory failure with hypoxemia: Assessment and plan: Continues to rquire 1 LO2. Walk test ordered, and will arrange for home O2. (5) UTI (urinary tract infection): Assessment and plan: s/p abx. Qualifiers: Urinary tract infection type: acute cystitis Hematuria presence: without hematuria Qualified Code(s): N30.00 - Acute cystitis without hematuria (6) Hypotension: Assessment and plan: Resolved. Qualifiers: Hypotension type: other hypotension type Qualified Code(s): I95.89 - Other hypotension (7) Dehydration: Assessment and plan: Resolved (8) Weakness: Assessment and plan: Improved. (9) Peripheral edema: Assessment and plan: Improved. (10) HTN (hypertension): Assessment and plan: C/w home meds. Qualifiers: Hypertension type: primary hypertension Qualified Code(s): I10 - Essential (primary) hypertension (11) Blind left eye: (12) Glaucoma: Qualifiers: Glaucoma type: unspecified Laterality: bilateral Qualified Code(s): H40.9 - Unspecified glaucoma (13) NSVT (nonsustained ventricular tachycardia): Assessment and plan: Brief episode of NSVT when she was ready for discharge. Will need holter monitor on discharge and outpatient f/u with cardiology. DS: Summary Hospital Course Hospital Course: The pt was admitted with sepsis from CAP (with acute respiratory failure/hypoxia) and a UTI. She had associated hypotension and dehydration on admission. Sepsis with associated hypotension and dehydration d/t CAP/UTI: Her sepsis was treated with IVFs including a 30 ml/kg bolus on arrival to the ED. Her infections were initially treated with IVPB Rocephin and azithromycin. When her respiratory status was slow to improve her antibiotic coverage was broadened to include double gram neg coverage with Zosyn and Levaquin. Sputum mobilization was encouraged with scheduled guaifenisen and OPEP therapy. A sputum culture was obtained but was unhelpful as it only grew out normal oral al. Blood cultures remained negative x 5 days. Her urine culture grew out e-coli sensitive to Rocephin, Zosyn and Levaquin. Her sepsis/hypotension/dehydration resolved with these treatments and IVFs were discontinued. Her BP remained stable throughout the remainder of her stay and her antihypertensives were resumed prior to discharge. Her infections were fully treated with a 10 day course of appropriate antibiotics and no further antibiotic therapy is indicated at discharge. Acute respiratory failure with hypoxemia 2/2 CAP, COPD exacerbation, and mucous plugging: The pt evidenced significant hypoxia on admission that was slow to improved. Initially thought to be 2/2 CAP alone, we clinically suspected acute COPD exacerbation. The pt has no known dx of COPD, but with a 30 PYH of smoking undoubtedly has COPD at baseline. (She quit smoking in 2007.) Persistent pursed lip breathing, wheezing, tripoding, and prolonged expiratory phase clinically supported this diagnosis. She was initiated on high dose IVP steroids and scheduled breathing nebulized treatments along with treatments already noted above. A 2D echo did not reveal any concerning CHF changes. A CTA chest was obtained to r/o PE which was neg, but did reveal bilateral scattered mucous plugging. She was initiated on IPV therapy and then on scheduled mucomyst treatments with significantly improved sputum mobilization noted. Dr Simms, regional administrative assistant was consulted. He agreed with treatment modalities already initiated. He deferred bronchoscopy or thoracentesis as interventions that carried more risk than benefit at this time. He will follow with the patient in his outpatient clinic after discharge. Although we attempted to wean her off of oxygen supplementation, the pt continued to require O2 at 1-2 Liters continuously to maintain sats above 90%. She is being discharged home with supplemental O2 therapy at 1-2 liters. She has been cautioned to be very careful not to trip on the oxygen tubing during ambulation as she is blind. Her IVP steroids were weaned down prior to discharge. She is being discharged with a prescription for a long prednisone taper, scheduled Wixela, and PRN albuterol nebulizer treatments. Non Sustained Vtach: Patient was previously ready for discharge on 06/01 but developed a brief run of VTACH. Remained asymtomatic. Her discharge was cancelled. Patient was started on Coreg, cardiac enzymes ordered. No sig pathology noted on 2D ECHO. Monitored on tele - no further events. [facility] and f/u with cardiology as outpatient. Time Spent with Patient Time attestation: Total time spent providing and/or coordinating discharge services: Exam Constitutional Vital Signs, click to edit/add: Last Vital Signs Temp 97.4 F L 06/03/23 05:24 Pulse 72 06/03/23 10:19 Resp 20 06/03/23 05:24 BP 162/73 H 06/03/23 05:24 Pulse Ox 92 L 06/03/23 07:43 O2 Del Method Nasal Cannula 06/03/23 07:43 O2 Flow Rate 1 06/03/23 07:43 Documenting provider has reviewed patient's vital signs: yes Common normals: no apparent distress and oriented x3 General appearance: cooperative HENMT Common normals: normocephalic and head/scalp atraumatic Head and scalp: normocephalic and atraumatic Respiratory Common normals: normal respiratory effort and clear to auscultation bilaterally Effort & inspection: able to speak in complete sentences Auscultation: clear to auscultation bilaterally Cardio Common normals: regular rate, S1 normal heart sound and S2 normal heart sound Rate: regular rate Heart sounds: S1 normal and S2 normal Neuro Common normals: oriented x3, moves all extremities and no focal motor deficits Psych Common normals: mental status grossly normal, denies hallucinations, denies homicidal ideation and denies suicidal ideation DS: Data Data Completed and Pending Labs on day of discharge: Labs from last 24 hours 06/03/23 06/02/23 06/02/23 05:12 21:36 16:16 WBC 8.0 RBC 4.51 Hgb 13.6 Hct 42.9 MCV 95.1 MCH 30.2 MCHC 31.7 RDW 13.5 Plt Count 232 MPV 9.2 L Neut % (Auto) 93.3 H Lymph % (Auto) 4.2 L [place] % (Auto) 1.5 L Eos % (Auto) 0.0 L Baso % (Auto) 0.1 L Neut # (Auto) 7.4 H Lymph # (Auto) 0.3 L [place] # (Auto) 0.1 L Eos # (Auto) 0.0 Baso # (Auto) 0.0 Abs Immat Gran (auto) 0.07 H Imm/Tot Granulo (auto) 0.9 H Sodium 138 Potassium 4.9 Chloride 101 Carbon Dioxide 36.0 H Anion Gap 5.9 BUN 27.0 H Creatinine 0.66 Est GFR ( Amer) >60 Est GFR (Non-Af Amer) >60 BUN/Creatinine Ratio 40.9 Glucose 154 H Calcium 9.0 Total Bilirubin 0.6 AST 16 ALT 28 Alkaline Phosphatase 62 Total Protein 5.6 L Albumin 2.2 L Globulin 3.4 Albumin/Globulin Ratio 0.6 POC Glucose 142 H 251 H 06/02/23 11:54 WBC RBC Hgb Hct MCV MCH MCHC RDW Plt Count MPV Neut % (Auto) Lymph % (Auto) [place] % (Auto) Eos % (Auto) Baso % (Auto) Neut # (Auto) Lymph # (Auto) [place] # (Auto) Eos # (Auto) Baso # (Auto) Abs Immat Gran (auto) Imm/Tot Granulo (auto) Sodium Potassium Chloride Carbon Dioxide Anion Gap BUN Creatinine Est GFR ( Amer) Est GFR (Non-Af Amer) BUN/Creatinine Ratio Glucose Calcium Total Bilirubin AST ALT Alkaline Phosphatase Total Protein Albumin Globulin Albumin/Globulin Ratio POC Glucose 159 H Discharge Plan Discharge Disposition: Home Health Service Condition: Good Discharge Medications: New prednisone 10 mg tablet See Rx Instructions .ROUTE .COMPLEX Qty: 30 0RF Rx Instructions: 5 tabs daily x 2 days, then 4 tabs daily x 2 days, then 3 tabs daily x 2 days, then 2 tabs daily x 2 days, then 1 tab daily x 2 days, then STOP fluticasone propion-salmeterol [Wixela Inhub] 500-50 mcg/dose blister with device 1 inh inhalation BID Qty: 60 0RF albuterol sulfate 2.5 mg /3 mL (0.083 %) solution for nebulization 2.5 mg inhalation Q4H PRN (Reason: shortness of breath or wheezing) Qty: 180 0RF carvedilol [Coreg] 6.25 mg tablet 6.25 mg PO BID Qty: 60 0RF Rx Instructions: must administer with a meal/food carvedilol [Coreg] 6.25 mg tablet 6.25 mg PO Q12H Qty: 60 0RF Rx Instructions: must administer with a meal/food Continued aspirin [Adult Aspirin Regimen] 81 mg tablet,delayed release (DR/EC) 81 mg PO DAILY benazepril 10 mg tablet 10 mg PO DAILY atorvastatin 10 mg tablet 10 mg PO .evening latanoprost 0.005 % drops 1 drp OPHTHALMIC (EYE) .qhs Rx Instructions: both eyes dorzolamide 2 % drops 1 drp OPHTHALMIC (EYE) TID Rx Instructions: LEFT EYE brimonidine-timolol 0.2-0.5 % drops 1 drp OPHTHALMIC (EYE) TID Rx Instructions: left eye Activity: increase activity as tolerated Diet: advance to your usual diet Activity Restrictions/Additional Instructions: - Home oxygen at 1-2 Liters at all times. - Cardiac event monitor (Nonsustained Vtach) Manager [employer] Supervisor Instructions: Med [facility] [phone] [facility] Oxygen. Patient must call [phone] so they can come to home and get her setup Forms: Portal Instructions Follow Up Appointments: - Jun.12 @ 9:30am with Dr. Carey [phone] - Follow up with Dr. Simms (pulmonary) in 1-2 weeks if possible [phone] F/u [facility] cardiology 2-3 weeks
[2023-06-03 11:47] LABS: Glucometer 151 mg/dL (74-106)
--- NOTE | 2023-06-03 11:48 | CA_ITS ---
[facility] Test Date: 2023-06-21 Pat Name: YUMI DREW Department: Room: [facility] Gender: Female Simplex Operator: : [id number] Requested By: DEMARCO NORTON Order Number: [id number] Reading MD: DEMARCO NORTON Interpretive Statements Predominant rhythm is sinus with average rate of 59 bpm Tachycardia - max rate of 149 bpm (PSVT) - 17 episodes of PSVT with longest duration of 25 beats - longest sinus tachycardia was 1m 22s with rates between 103-105 bpm Bradycardia (54% burden) - min rate of 38 bpm - longest episode of sinus bradycardia was 2h 10min 14sec with rates between 38-46 bpm Ventricular ectopy - 1,102 total (<1% total) - 1,099 PVC Patient triggered events: none Impression: Predominant rhythm is sinus with average rate of 59 bpm Fastest rate of 149 bpm (PSVT) and slowest rate of 38 bpm (during sleep) Bradycardia burden of 54% 1,099 PVC No atrial fibrillation No pauses or blocks Electronically Signed On 06-24-2023 9:56:08 EST by DEMARCO NORTON
--- NOTE | 2023-06-05 14:46 | CM.DCFOLLOWU ---
No answer, Ashvin called for confirmation of discharge.
--- NOTE | 2023-06-05 15:24 | CM.NOTE ---
Called Stacey Lopez, pt's contact when unable to contact Regine. Oxygen had been delivered on Sunday prior to her discharge. Pt doing well and denies questions or concerns.
== END 2023-06-03 14:28 | disposition home health service (06) | DRG 871 ==
LOC: ER 14:52 → MS 15:40
PROVIDERS: Family Medicine; Nurse Practitioner; Physician Assistant; Admitting Provider Internal Medicine; Emergency Provider Emergency Medicine; PCP Internal Medicine; Visit Provider Internal Medicine
DX: A41.9 Sepsis, unspecified organism (principal); E43 Unspecified severe protein-calorie malnutrition; J18.9 Pneumonia, unspecified organism; J96.01 Acute respiratory failure with hypoxia; J44.1 Chronic obstructive pulmonary disease with (acute) exacerbation; N30.00 Acute cystitis without hematuria; I50.42 Chronic combined systolic (congestive) and diastolic (congestive) heart failure; I47.20 Ventricular tachycardia, unspecified; T17.590A Other foreign object in bronchus causing asphyxiation, initial encounter; W44.F9XA Other object of natural or organic material, entering into or through a natural orifice, initial encounter; B96.20 Unspecified Escherichia coli [E. coli] as the cause of diseases classified elsewhere; I11.0 Hypertensive heart disease with heart failure; R65.20 Severe sepsis without septic shock; H10.33 Unspecified acute conjunctivitis, bilateral; H54.8 Legal blindness, as defined in USA; I87.2 Venous insufficiency (chronic) (peripheral); E78.5 Hyperlipidemia, unspecified; H40.9 Unspecified glaucoma; E86.0 Dehydration; R53.1 Weakness; Z79.82 Long term (current) use of aspirin; Z79.899 Other long term (current) drug therapy; Z87.891 Personal history of nicotine dependence; Z68.32 Body mass index [BMI] 32.0-32.9, adult
CPT/HCPCS: 0202U; 36415; 70450; 71045; 71275; 80048; 80053; 81001; 82550; 82553; 82800; 82948; 83605; 83735; 83874; 83880; 84145; 84484; 85025; 85610; 85730; 87040; 87070; 87086; 87106; 87150; 87186; 87205; 87420; 87635; 87798; 87804; 87811; 93005; 93242; 93306; 94640; 94667; 94668; 94761; 96361; 96365; 96366; 96367; 96368; 96372; 96375; 96376; 97110; 97161; 97164; 97165; 97530; 97535; 99285; J0456; J2920; J2930; Q9967

== ENCOUNTER 2023-07-19 10:49 | Outpatient (OUT) | payer MEDICARE, OTHER, SELFPAY ==
--- OUTSIDE RECORDS SUMMARY | 2023-07-19 10:53 | XMS_ITS | CCD ---
Author Name Unknown Address [address] [place] [id number] Organization [facility] Care Team Providers Care Electrical Installation Supervisor Name Role Phone CIERRA, DR PAL Admitting Unavailable CIERRA, DR PAL Attending Unavailable CIERRA, DR PAL Primary Care Unavailable CIERRA, DR PAL Admitting Unavailable CIERRA, DR PAL Attending Unavailable CIERRA, DR PAL Primary Care Unavailable CIERRA, DR PAL Consulting Elías Weathers Unavailable Medications Current Medications Medication Drug Class(es) Dates Sig (Normalized) Sig (Original) albuterol 5 mg/ml inhalation solution (1 source) beta2-Adrenergic Agonist take 2.5 mg by inhalation every four hours Albuterol Sulfate 2.5 MG/0.5ML 2.5 mg Inhalation every 4 hours Active aspirin 81 mg delayed release oral tablet (7 sources) Platelet Aggregation Inhibitor, Nonsteroidal Anti-inflammatory Drug take 1 tablet by mouth every twenty-four hours Aspirin 81 81 MG 1 tablet Orally Once a day Active atorvastatin 10 mg oral tablet (7 sources) HMG-CoA Reductase Inhibitor Atorvastatin Calcium 10 MG TAKE 1 TABLET IN THE EVENING Active brimonidine tartrate 2 mg/ml / timolol 5 mg/ml ophthalmic solution (1 source) alpha-Adrenergic Agonist, beta-Adrenergic Ming Brimonidine Tartrate-Timolol 0.2-0.5 % 1 drop into affected eye Ophthalmic Twice a day Active carvedilol 3.125 mg oral tablet (1 source) alpha-Adrenergic Ming, beta-Adrenergic Ming Start: 07-12-2023 take 1 tablet by mouth every twelve hours Carvedilol 3.125 MG 1 tablet with food Orally Twice a day for 90 days Jul, Active dorzolamide 20 mg/ml ophthalmic solution (1 source) Carbonic Anhydrase Inhibitor take 1 drop(s) into the eye(s) three times daily Dorzolamide HCl 2 % 1 drop into affected eye Ophthalmic Three times a day Active 60 actuat fluticasone propionate 0.5 mg/actuat / salmeterol 0.05 mg/actuat dry powder inhaler (1 source) Corticosteroid, beta2-Adrenergic Agonist take 1 puff(s) by inhalation twice daily Wixela Inhub 500-50 MCG/ACT 1 puff Inhalation Twice a day Active latanoprost 0.05 mg/ml ophthalmic solution (1 source) Prostaglandin Analog take 1 drop(s) into the eye(s) once daily in the evening Latanoprost 0.005 % 1 drop into affected eye in the evening Ophthalmic Once a day Active Completed/Discontinued Medications Medication Drug Class(es) Dates Sig (Normalized) Sig (Original) benazepril hydrochloride 10 mg oral tablet (13 sources) Angiotensin Converting Enzyme Inhibitor Start: 12-21-2021 take 1 tablet by mouth once daily as needed Benazepril HCl 10MG Benazepril HCl 10MG, 1 (one) Tablet daily # 90, 12/21/2021, Ref. x3. Active Oral daily for 90 *Pick strength-form from [employer] for eRX* Dec, Not-Taking/PRN cephalexin 500 mg oral capsule (7 sources) Cephalosporin Antibacterial Start: 01-16-2023 take 1 capsule by mouth every twenty-four hours Cephalexin 500 MG 1 capsule Orally qd for 14 days Jan, Not-Taking/PRN Start: 01-16-2023 take 1 capsule by mo ut every twelve hours Cephalexin 500 MG 1 capsule Orally bid for 14 days Jan, Active mupirocin 0.02 mg/mg topical ointment (7 sources) RNA Synthetase Inhibitor Antibacterial Start: 01-16-2023 Mupirocin 2 % 1 application Externally Twice a day for 14 days Jan, Not-Taking/PRN Problems Active Problems Problem Classification Problem Date Documented Date Episodic/Chronic Chronic obstructive pulmonary disease and bronchiectasis (12 sources) Mucopurulent chronic bronchitis; Translations: [Mucopurulent chronic bronchitis] Chronic Chronic ulcer of skin (10 sources) Non-pressure chronic ulcer of right calf limited to breakdown of skin; Translations: [Non-pressure chronic ulcer of right calf limited to breakdown of skin] Chronic Disorders of lipid metabolism (5 sources) Pure hypercholesterolemia; Translations: [Pure hypercholesterolemia, unspecified] Onset: 12-13-2018 Chronic Essential hypertension (11 sources) Essential (primary) hypertension; Translations: [Essential hypertension] Onset: 11-21-2020 Chronic Genitourinary symptoms and ill-defined conditions (2 sources) Urge incontinence of urine; Translations: [Urge incontinence] Chronic Heart valve disorders (2 sources) Aortic stenosis, non-rheumatic ; Translations: [Nonrheumatic aortic (valve) stenosis] Chronic Occlusion or stenosis of precerebral arteries (3 sources) Occlusion and stenosis of bilateral carotid arteries; Translations: [Left carotid artery occlusion] Onset: 11-21-2020 Chronic Other aftercare (1 source) Long-term current use of drug therapy; Translations: [Other retirement (current) drug therapy] Episodic Other circulatory disease (7 sources) Stenosis of left subclavian artery; Translations: [Stricture of artery] Chronic Other circulatory disease (1 source) Stricture of artery Chronic Other circulatory disease (1 source) Cardiovascular symptoms; Translations: [Other specified symptoms and signs involving the circulatory and respiratory systems] Episodic Other connective tissue disease (1 source) Disorder of musculoskeletal system; Translations: [Other symptoms and signs involving the musculoskeletal system] Episodic Other diseases of veins and lymphatics (10 sources) Venous insufficiency (chronic) (peripheral); Translations: [Venous insufficiency (chronic) (peripheral)] Episodic Other diseases of veins and lymphatics (1 source) Peripheral venous insufficiency; Translations: [Venous insufficiency (chronic) (peripheral)] Episodic Other ear and sense organ disorders (1 source) Hearing loss; Translations: [Unspecified hearing loss, bilateral] Chronic Other ear and sense organ disorders (1 source) Sensorineural hearing loss, unilateral, left ear, with unrestricted hearing on the contralateral side; Translations: [Conductive hearing loss of left ear with normal hearing on right side (disorder)] Chronic Other injuries and conditions due to external causes (1 source) History of fall; Translations: [History of falling] Episodic Other lower respiratory disease (1 source) Hypoxemia Episodic Other nutritional; endocrine; and metabolic disorders (1 source) Simple obesity ; Translations: [Other obesity due to excess calories] Onset: 10-03-2017 Chronic Other nutritional; endocrine; and metabolic disorders (1 source) Overweight; Translations: [Overweight] Episodic Peripheral and visceral atherosclerosis (20 sources) Intermittent claudication of right lower limb co-occurrent and due to atherosclerosis; Translations: [Atherosclerosis of [place] arteries of extremities with intermittent claudication, right leg] Onset: 11-21-2018 Chronic Residual codes; unclassified (1 source) Procedure and treatment not carried out because of patient's decision for unspecified reasons Episodic Spondylosis; intervertebral disc disorders; other back problems (5 sources) Spondylosis without myelopathy or radiculopathy, lumbar region; Translations: [Lumbosacral spondylosis without myelopathy] Onset: 11-22-2020 Chronic Substance-related disorders (10 sources) Tobacco user; Translations: [Nicotine dependence, cigarettes, in remission] Chronic Past or Other Problems Problem Classification Problem Date Documented Da te Episodic/Chronic Other aftercare (4 sources) Other retirement (current) drug therapy; Translations: [OTH 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 CURRENT DRUG THERAPY] Onset: 11-16-2020 Episodic Other and unspecified benign neoplasm (1 source) Benign neoplasm of sigmoid colon; Translations: [Benign neoplasm of sigmoid colon] Onset: 02-09-2019 Episodic Unclassified (1 source) NSVT (nonsustained ventricular tachycardia) I47.29 Results Test Name Value Interpretation Reference Range Facil ity CBC AUTO DIFFon 11-16-2020 BASO # 0.0 103/ul Normal 0.0-0.1 [facility] Comment on above: Performed By: #### C BC #### [facility] [address] [place] [address] Miguel Angel Jessica Basophils/100 WBC (Bld) 0.4 % Normal 0.2-2.0 [facility] Comment on above: Performed By: #### C BC #### [facility] [address] [place], [place] [address] Miguel Angel Jessica EO # 0.1 103/ul Normal 0.0-0.7 [facility] Comment on above: Performed By: #### C BC #### [facility] [address] [place], [place] [address] Miguel Angel Jessica Eosinophils/100 WBC (Bld) 1.8 % Normal 0.9-7.0 [facility] Comment on above: Performed By: #### C BC #### [facility] [address] [place], [place] [address] Miguel Angel Jessica Erythrocyte distribution width (RBC) [Ratio] 13.1 % Normal 11.0-15.0 [facility] Comment on above: Performed By: #### C BC #### [facility] [address] [place] [address] Miguel Angel Lopez Hematocrit (Bld) [Volume fraction] 46.2 % Normal 36.0-48.0 [facility] Comment on above: Performed By: #### C BC #### [facility] [address] [place] [address] Miguel Angel Lopez Hemoglobin (Bld) [Mass/Vol] 15.2 g/dL Normal 12.0-16.0 [facility] Comment on above: Performed By: #### C BC #### [facility] [address] [place] [address] Miguel Angel Lopez IG # 0.01 10e3/ul Normal 0.00-0.03 [facility] Comment on above: Performed By: #### C BC #### [facility] [address] [place] [address] Miguel Angel Lopez IG % 0.1 % Normal 0.0-0.5 [facility] Comment on above: Performed By: #### C BC #### [facility] [address] [place] [address] Miguel Angel Lopez LYMPH # 1.5 103/ul Normal 1.2-3.8 [facility] Comment on above: Performed By: #### C BC #### [facility] [address] [place] [address] Miguel Angel Lopez Lymphocytes/100 WBC (Bld) 22.1 % Normal 20.5-60.0 [facility] Comment on above: Performed By: #### C BC #### [facility] [address] [place] [address] Miguel Angel Lopez MANUAL DIFF REQ NO Normal [facility] Comment on above: Performed By: #### C BC #### [facility] [address] [place] [address] Miguel Angel Lopez MCH (RBC) [Entitic mass] 31.5 pg Normal 26.7-34.0 [facility] Comment on above: Performed By: #### C BC #### [facility] [address] [place], [place] [address] Miguel Angeljackie Lopez MCHC (RBC) [Mass/Vol] 32.9 g/dL Normal 29.9-35.2 [facility] Comment on above: Performed By: #### C BC #### [facility] [address] [place], [place] [address] Miguel Angel Jessica MCV (RBC) [Entitic vol] 95.9 fL Normal 81.0-99.0 [facility] Comment on above: Performed By: #### C BC #### [facility] [address] [place] [id number] Miguel Angel Jessica MONO # 0.6 103/ul Normal 0.3-0.8 [facility] Comment on above: Performed By: #### C BC #### [facility] [address] [place] [id number] Miguel Angel Jessica Monocytes/100 WBC (Bld) 8.2 % Normal 1.7-12.0 [facility] Comment on above: Performed By: #### C BC #### [facility] [address] [place] [id number] Miguel Angel Jessica NEUT # 4.5 103/ul Normal 1.4-6.5 [facility] Comment on above: Performed By: #### C BC #### [facility] [address] [place], [place] [id number] Miguel Angel Jessica Neutrophils/100 WBC (Bld) 67.4 % Normal 43.0-75.0 [facility] Comment on above: Performed By: #### C BC #### [facility] [address] [place], [place] [address] Miguel Angel Jessica Platelet mean volume (Bld) [Entitic vol] 9.4 fL Critically low 9.5-13.5 [facility] Comment on above: Performed By: #### C BC #### [facility] [address] [place] [id number] Miguel Angel Jessica PLT 159 103/ul Normal 150-450 [facility] Comment on above: Performed By: #### C BC #### [facility] [address] [place] [address] Miguel Angel Jessica RBC 4.82 106/ul Normal 4.20-5.40 [facility] Comment on above: Performed By: #### C BC #### [facility] [address] [place] [id number] Miguel Angel Jessica WBC 6.7 103/ul Normal 4.0-11.0 [facility] Comment on above: Performed By: #### C BC #### [facility] [address] [place] [phone] Miguel Angel Jessica LIPID PROFILEon 11-16-2020 CHOL-HDL RATIO NORM SEE BELOW Normal [facility] Comment on above: Result Comment: 3.3 - 4.4 LOW RISK 4.4 - 7.1 AVERAGE RISK 7.1 - 11.0 MODERATE RISK >11.0 HIGH RISK Performed By: #### B MP, LIPID, ALT #### [facility] [address] [place], [place] [phone] Miguel Angel Jessica Cholesterol [Mass/Vol] 165 mg/dL Normal <=200 [facility] Comment on above: Performed By: #### B MP, LIPID, ALT #### [facility] [address] [place], [place] [phone] Miguel Angel Jessica Cholesterol in HDL [Mass/Vol] 67 mg/dL Normal [facility] Comment on above: Performed By: #### B MP, LIPID, ALT #### [facility] [address] [place], [place] [phone] Miguel Angel Jessica Cholesterol in LDL [Mass/Vol] 81.8 mg/dL Normal [facility] Comment on above: Performed By: #### B MP, LIPID, ALT #### [facility] [address] [place] [address] Miguel Angel Jessica Cholesterol.total/C holesterol in HDL [Mass ratio] 2.5 {ratio} Normal [facility] Comment on above: Performed By: #### B MP, LIPID, ALT #### [facility] [address] [place], [place] [address] Miguel Angel Jessica HDL NORMAL > or = 60 mg/dl - LO W CARDIOVASCULAR RISK <40 mg/dl - HIGH CARDIOVASCULAR RISK Normal [facility] Comment on above: Performed By: #### B MP, LIPID, ALT #### [facility] [address] [place] [phone] Miguel Angel Jessica LDL CALC NORMAL SEE BELOW Normal [facility] Comment on above: Result Comment: <100 mg/dl OPTIMAL 100 - 129 mg/dl NEAR OR ABOVE OPTIMAL 130 - 159 mg/dl BORDERLINE HIGH 160 - 189 mg/dl HIGH >190 mg/dl VERY HIGH Performed By: #### B MP, LIPID, ALT #### [facility] [address] [place] [address] Miguel Angel Jessica Triglyceride [Mass/Vol] 81 mg/dL Normal <=150 [facility] Comment on above: Performed By: #### B MP, LIPID, ALT #### [facility] [address] [place] [address] Miguel Angel Jessica VLDL CALC 16.2 mg/dL Normal [facility] Comment on above: Performed By: #### B MP, LIPID, ALT #### [facility] [address] [place] [address] Miguel Angel Jessica PROF CHEM 8 (BAS METB)on Anion gap [Moles/Vol] 8.5 mmol/L Normal [facility] Comment on above: Performed By: #### B MP, LIPID, ALT #### [facility] [address] [place] [address] Miguel Angel Jessica Calcium [Mass/Vol] 9.1 mg/dL Normal 8.4-10.2 [facility] Comment on above: Performed By: #### B MP, LIPID, ALT #### [facility] [address] [place] [address] Miguel Angel Jessica Chloride [Moles/Vol] 105 mmol/L Normal 98-107 [facility] Comment on above: Performed By: #### B MP, LIPID, ALT #### [facility] [address] [place] [phone] Miguel Angel Jessica CO2 [Moles/Vol] 33.7 mmol/L Critically high 22.0-30.0 [facility] Comment on above: Performed By: #### B MP, LIPID, ALT #### [facility] [address] [place] [address] Miguel Angel Jessica Creatinine [Mass/Vol] 0.61 mg/dL Normal 0.52-1.04 [facility] Comment on above: Performed By: #### B MP, LIPID, ALT #### [facility] [address] [place] [phone] Miguel Angel Jessica EGFR-AF SYRIAN >60 Normal >=60 [facility] Comment on above: Performed By: #### B MP, LIPID, ALT #### [facility] [address] [place] [address] Miguel Angel Jessica EGFR-NON AF SYRIAN >60 Normal >=60 [facility] Comment on above: Performed By: #### B MP, LIPID, ALT #### [facility] [address] [place] [address] Miguel Angel Jessica Glucose [Mass/Vol] 108 mg/dL Critically high 74-106 [facility] Comment on above: Performed By: #### B MP, LIPID, ALT #### [facility] [address] [place] [address] Miguel Angel Jessica Potassium [Moles/Vol] 4.2 mmol/L Normal 3.4-5.0 [facility] Comment on above: Performed By: #### B MP, LIPID, ALT #### [facility] [address] [place] [address] Miguel Angel Jessica Sodium [Moles/Vol] 143 mmol/L Normal 137-145 [facility] Comment on above: Performed By: #### B MP, LIPID, ALT #### [facility] [address] [place] [address] Miguel Angel Jessica Urea nitrogen [Mass/Vol] 13.0 mg/dL Normal 7.0-17.0 [facility] Comment on above: Performed By: #### B MP, LIPID, ALT #### [facility] [address] [place] [address] Miguel Angel Jessica Urea nitrogen/Creatinine [Mass ratio] 21.3 mg/mg Normal [facility] Comment on above: Performed By: #### B MP, LIPID, ALT #### [facility] [address] [place], [place] [address] Miguel [facility] ALT [Catalytic activity/Vol] 16 U/L Normal 9-52 [facility] Comment on above: Performed By: #### B MP, LIPID, ALT #### [facility] [address] [place], [place] [address] Miguel Angel Lopez Vital Signs Date Time Vital Sign Value Performing Clinician Facility 07-12-2023 10:00-0500 Body height 167.64 cm Elías Ball Other [facility] Other 07-12-2023 10:00-0500 Body mass index (BMI) [Ratio] 29.76 kg/m2 Elías Ball Other [facility] Other 07-12-2023 10:00-0500 Body weight 83.64 kg Elías Ball Other [facility] Other 07-12-2023 10:00-0500 Diastolic blood pressure 73 mm[Hg] Elías Ball Other [facility] Other 07-12-2023 10:00-0500 Respiratory rate 12 /min Elías Ball Other [facility] Other 07-12-2023 10:00-0500 Systolic blood pressure 105 mm[Hg] Elías Ball Other [facility] Other 02-07-2023 11:45-0400 Body height 167.64 cm Elías Ball Other [facility] Other 02-07-2023 11:45-0400 Body mass index (BMI) [Ratio] 29.76 kg/m2 Elías Ball Other [facility] Other 02-07-2023 11:45-0400 Body weight 83.64 kg Elías Ball Other [facility] Other 02-07-2023 11:45-0400 Diastolic blood pressure 75 mm[Hg] Elías Ball Other [facility] Other 02-07-2023 11:45-0400 Respiratory rate 12 /min Elías Ball Other [facility] Other 02-07-2023 11:45-0400 Systolic blood pressure 126 mm[Hg] Elías Ball Other [facility] Other 01-23-2023 11:15-0400 Body height 167.64 cm Elías Ball Other [facility] Other 01-23-2023 11:15-0400 Body mass index (BMI) [Ratio] 29.76 kg/m2 Elías Ball Other [facility] Other 01-23-2023 11:15-0400 Body weight 83.64 kg Elías Ball Other [facility] Other 01-23-2023 11:15-0400 Diastolic blood pressure 81 mm[Hg] Elías Ball Other [facility] Other 01-23-2023 11:15-0400 Respiratory rate 12 /min Elías Ball Other [facility] Other 01-23-2023 11:15-0400 Systolic blood pressure 125 mm[Hg] Elías Ball Other [facility] Other 01-16-2023 15:00-0400 Body height 167.64 cm Elías Ball Other [facility] Other 01-16-2023 15:00-0400 Body mass index (BMI) [Ratio] 29.76 kg/m2 Elías Ball Other [facility] Other 01-16-2023 15:00-0400 Body weight 83.64 kg Elías Ball Other [facility] Other 01-16-2023 15:00-0400 Diastolic blood pressure 83 mm[Hg] Elías Ball Other [facility] Other 01-16-2023 15:00-0400 Respiratory rate 12 /min Elías Ball Other [facility] Other 01-16-2023 15:00-0400 Systolic blood pressure 140 mm[Hg] Elías Ball Other [facility] Other Encounters Encounter Date Encounter Type Care Provider Facility Start: 07-12-2023 End: 07-12-2023 ambulatory Elías Ball Other [facility] Other Start: 07-12-2023 Office outpatient vi sit 25 minutes Elías Ball [facility] Start: 06-05-2023 End: 06-05-2023 ambulatory Elías Ball Other [facility] Other Start: 06-05-2023 Telephone encounter Elías Ball [facility] Start: 06-01-2023 End: 06-01-2023 ambulatory Elías Ball Other [facility] Other Start: 06-01-2023 Telephone encounter Elías Ball [facility] Start: 05-25-2023 End: 05-25-2023 ambulatory Elías Ball Other [facility] Other Start: 05-25-2023 Telephone encounter Elías Ball [facility] Start: 02-07-2023 End: 02-07-2023 ambulatory Elías Ball Other [facility] Other Start: 02-07-2023 Office outpatient vi sit 15 minutes Elías Norton [facility] Start: 01-23-2023 End: 01-23-2023 ambulatory Elías Norton Other [facility] Other Start: 01-23-2023 Office outpatient vi sit 15 minutes Elías Norton [facility] Start: 01-16-2023 End: 01-16-2023 ambulatory Elías Norton Other [facility] Other Start: 01-16-2023 Patient encounter procedure Elías Norton [facility] Start: 11-22-2020 End: 03-11-[address] ELÍAS NORTON Facility:[facility] Start: 11-16-2020 End: 11-17-[address] ELÍAS NORTON Facility:[facility] Start: 11-10-2020 Adult health examination Elías Norton Other [facility] Other Procedures Date Procedure Procedure Detail Performing Clinician Start: 11-21-2018 Screening for malign ant neoplasm of colon Elías Norton Other Depression screening Annamaria Norton Other Immunizations Immunization Date Immunization Notes Care Provider Miranda keen 06-12-2023 influenza, high dose seasonal, preservative-free Elías Norton Other [facility] Other 11-21-2018 pneumococcal conjuga te vaccine, 13 valent Elías Norton Other [facility] Other 05-05-2018 diphtheria, tetanus toxoids and acellular pertussis vaccine, unspecified formulation Elías Cierra Other [facility] Other Payers Date Payer Category Payer Medicare [id number] 1960 Unknown [id number] 1940 Unknown [id number] 1940 Unknown [id number] Social History Date Type Detail Facility Sex Assigned At [facility] Other Evaluation note 07-12-2023 Note Date & Type Note Facility 07-12-2023 Evaluation note Encounter Date Diagnosis Assessment Notes Jul, Chronic obstructive pulmonary disease with (acute) exacerbation (ICD-10 - J44.1) Much improved from her previous OV. She is completely off oxygen and Psat in mid 90s She denies SOB, cough or sputum production Instructed to continue IS to assist in clearing secrestions. Istructed to continue LABA/ICS TOSHIA neb as needed Hx of pneumonia - recheck CXR Jul, Hypoxia (ICD-10 - R09.02) No longer requires oxygen Psat 95% during daytime activities Instructed to call and remove oxygen Jul, Primary hypertension (ICD-10 - I10) This patient is instructed to consume a healthy, low-fat, low-salt diet. They are also encouraged to continue exercise to achieve/maintain a normal BMI. Patient is instructed on home BP measurements: - rest for 5 minutes w/o talking.- positioned w/ feet on floor and arm supported.- average best 2/3 readings w/ goal < 135/85.- update office w/ home readings in 2 weeks. Jul, NSVT (nonsustained ventricular tachycardia) (ICD-10 - I47.29) Reviewed holter monitor No NSVT Rare PVCs and PAT. Continue Coreg, but decrease dose ot 3.125mg bid due to resting bradycardia w/ HR in 50s Jul, Nonrheumatic aortic valve stenosis (ICD-10 - I35.0) She denies CP, tachycardia or syncope. She recently completed Echo. Continue control of BP and HR w/ Coreg - decreasing due to bradycardia Jul, Chronic venous insufficiency (ICD-10 - I87.2) Avoid salt and elevate lower extremities, support stockings, inspect legs and feet daily for blisters and ulcerations. Jul, Mucopurulent chronic bronchitis (ICD-10 - J41.1) Much improved from her previous OV. She is completely off oxygen and Psat in mid 90s She denies SOB, cough or sputum production Instructed to continue IS to assist in clearing secrestions. Istructed to continue LABA/ICS TOSHIA neb as needed Hx of pneumonia - recheck CXR Jul, Hypercholesterolemia (ICD-10 - E78.00) Instructed on diet and exercise with continued statin therapy.Discusse d the beneficial effects of lowering cholesterol in reducing the risk for cerebrovascular and cardiovascular disease. Jul, Cigarette nicotine dependence in remission (ICD-10 - F17.211) Jul, Urge incontinence of urine (ICD-10 - N39.41) Symptoms mild and experiencing ADR w/ Oxybutynin, ok to d/c. [facility] Other Evaluation note 02-07-2023 Note Date & Type Note Facility 02-07-2023 Evaluation note Encounter Date Diagnosis Assessment Notes Jan, Venous insufficiency (chronic) (peripheral) (ICD-10 - I87.2) Avoid salt and elevate lower extremities, support stockings, inspect legs and feet daily for blisters and ulcerations. 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 Apply Mupirocin daily. 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 Advanced care planning reviewed and/or information given as requested. Additional counseling was provided here today in regards to, [ ]. The above visit was performed by [ ], under direct supervision of [ ]. Document reviewed and amended by provider signed below. Jan, Primary hypertension (ICD-10 - I10) This patient is instructed to consume a healthy, low-fat, low-salt diet. They are also encouraged to continue exercise to achieve/mainta in a normal BMI. 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 No ER/hosp visits for AECOPD Jan, Venous insufficiency (chronic) (peripheral) (ICD-10 - I87.2) Avoid salt and elevate lower extremities, support stockings, inspect legs and feet daily for blisters and ulcerations. 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) Low salt diet and elevate legs as much as possible. Cleanse ulcers, apply Mupirocin and begin antibiotics. Recheck in 10 day Jan, Cigarette nicotine dependence in remission (ICD-10 - F17.211) Jan, Screening mammography declined (ICD-10 - Z53.20) Instructed on monthly SBE [facility] Other Evaluation note Note Date & Type Note Facility Evaluation note No Information [facility] Other History general Narrative - Reported Note Date & Type Note Facility History general Narrative - Reported Type Medical History Essential (primary) hypertension Medical History Benign neoplasm of sigmoid colon Medical History Hyperlipidemia, unspecified Medical History Occlusion and stenos is of left carotid artery Medical History 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 Medical History Stricture of artery Medical History Lumbar spondylosis Surgical History COLONOSCOPY 2019 Hospitalization History SEE SURGICAL HX [facility] Other Summary Purpose Family History No Family History Records Found Advance Directives No Advanced Directives Records Found Additional Source Comments INFORMATION SOURCE (unrecogn ized section and content) DATE CREATED AUTHOR 10/13/2021 [facility] REASON FOR VISIT (unrecogniz ed section and content) sore on right leg1 WEEK FOLL OW UP2 [facility]EEK [facility] Follow up FOR RECORDS PERTAINING TO PATIENTS WHO ARE OR HAVE BEEN ENROLLED IN A CHEMICAL DEPENDENCY/SUBSTANCEABUSE PROGRAM, SOME INFORMATION MAY BE OMITTED. This clinical summary was aggregated from multiple sources. Caution should be exercised in using it in the provision of clinical care. This summary normalizes information from multiple sources, and as a consequence, information in this document may materially change the coding, format and clinical context of patient data. In addition, data may be omitted in some cases. CLINICAL DECISIONS SHOULD BE BASED ON THE PRIMARY CLINICAL RECORDS. [employer] provides no warranty or guarantee of the accuracy or completeness of information in this document.
--- NOTE | 2023-07-19 11:15 | XR_ITS ---
The [address] [address] Patient Name: YUMI DREW MRN: [id number] date: 1940 Sex: F Assigned Patient Location: LAB Current Patient Location: LAB Accession/Order Number: [id number] Exam Date: 07/19/2023 11:00 Report Date: 07/19/2023 11:27 At the request of: DEMARCO NORTON Procedure: XR chest 2V EXAM: XR chest 2V HISTORY: Mucopurulent Chronic Bronchitis J41.1 COMPARISON: None. TECHNIQUE: PA and lateral views of the chest. FINDINGS: The cardiomediastinal silhouette is enlarged. Interstitial opacity. There is no pneumothorax. No pleural effusion is noted. The osseous structures are intact. XR/XR chest 2V IMPRESSION: Cardiomegaly with congestion. Electronically authenticated by: MARK RODRÍGUEZ Date: 07/19/2023 11:27
== END 2023-07-19 10:50 | disposition home or self-care (01) ==
LOC: LAB 10:50
PROVIDERS: PCP Internal Medicine; Visit Provider Internal Medicine
DX: J41.1 Mucopurulent chronic bronchitis (principal); I51.7 Cardiomegaly
CPT/HCPCS: 71046

== ENCOUNTER 2024-09-19 10:42 | Outpatient (OUT) | payer MEDICARE, OTHER, SELFPAY | END 2024-09-19 10:43 | disposition home or self-care (01) | LOC: WC 10:43 | PROVIDERS: PCP Internal Medicine; Visit Provider Podiatrist Foot & Ankle Surgery | DX: I87.312 Chronic venous hypertension (idiopathic) with ulcer of left lower extremity (principal); L85.9 Epidermal thickening, unspecified | CPT/HCPCS: 29581; 88304; G0463 ==

== ENCOUNTER 2024-09-29 09:56 | Emergency (ER) | payer MEDICARE, OTHER, SELFPAY ==
[2024-09-29 10:04] VITALS: BP 168/83; PULSE 77; TEMP 37.6; O2SAT 89
[2024-09-29 10:11] VITALS: O2SAT 89
--- NOTE | 2024-09-29 10:13 | ECG_ITS ---
The [facility] Test Date: 2024-09-29 Pat Name: YUMI DREW Department: Room: - Gender: Female [employer] Technician: : 1940 Requested By: 1030 Order Number: [id number] Reading MD: TATE COLLINS M.D. Measurements Intervals [place] Rate: 68 P: 30 TN: 182 QRS: 64 QRSD: 88 T: 41 QT: 384 QTc: 401 Interpretive Statements [address] abnormality Abnormal ECG Compared to ECG 05/23/2023 13:14:46 Sinus arrhythmia no longer present Electronically Signed On 09-29-2024 21:45:24 EDT by TATE COLLINS M.D.
--- NOTE | 2024-09-29 10:15 | ED.GENADUL1 ---
HPI HPI - General Adult General Chief complaint: Upper Respiratory Infection Stated complaint: LOW OXYGEN LEVEL Time Seen by Provider: 09/29/24 10:09 Source: patient Mode of arrival: Wheelchair History of Present Illness HPI narrative: 84-year-old female presents to the emergency department for a reported low pulse ox. She was sent in by home care. The patient herself does not have any complaints, she states she is not short of breath. She does not have shortness of breath or chest pain now. Related Data Home Medications ?Medication ?Instructions ?Recorded ?Confirmed aspirin 81 mg tablet,delayed 81 mg PO DAILY 05/23/23 09/29/24 release (Adult Aspirin Regimen) atorvastatin 10 mg tablet 10 mg PO .evening 05/23/23 09/29/24 brimonidine 0.2 %-timolol 0.5 % 1 drp ophthalmic (eye) TID 05/23/23 09/29/24 eye drops dorzolamide 2 % eye drops 1 drp ophthalmic (eye) TID 05/23/23 09/29/24 latanoprost 0.005 % eye drops 1 drp ophthalmic (eye) .qhs 05/23/23 09/29/24 metoprolol succinate 25 mg 25 mg PO DAILY 09/29/24 09/29/24 tablet,extended release 24 hr torsemide 20 mg tablet 20 mg PO DAILY PRN edema 09/29/24 09/29/24 Previous Rx's ?Medication ?Instructions ?Recorded albuterol sulfate 2.5 mg/3 mL 2.5 mg (3 mL) inhalation Q4H PRN 06/01/23 (0.083 %) solution for nebulization shortness of breath or wheezing #180 mL fluticasone 500 mcg-salmeterol 50 1 inh inhalation BID #60 ea 06/01/23 mcg/dose blistr powdr for inhalation (Wixela Inhub) Allergies Allergy/AdvReac Type Severity Reaction Status Date / Time No Known Drug Allergies Allergy Verified 09/29/24 10:38 Opioid HPI Opioid Management Most Recent Opioid Data: No Data to Display Review of Systems ROS Narrative A ten point review of systems is negative except as noted above. 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 General: The patient appears well and in no apparent distress. Patient is resting comfortably on cart. Skin: Warm, dry, no pallor noted. There is no rash noted. Head: Normocephalic, atraumatic Eye: Normal conjunctiva, no drainage Ears, Nose, Mouth, and Throat: oral mucosa is moist. Nares patent. Cardiovascular: Regular Rate and Rhythm Respiratory: Bilateral rhonchi throughout Back: non-tender GI: Soft and nontender Musculoskeletal: Bilateral lower extremity edema present Neurological: A&O, normal speech Psychiatric: Cooperative Constitutional Vital Signs, click to edit/add: Last Vital Signs Temp 99.6 F 09/29/24 10:04 Pulse 66 09/29/24 10:27 Resp 20 09/29/24 10:27 BP 168/83 H 09/29/24 10:04 Pulse Ox 95 09/29/24 10:27 O2 Del Method Nasal Cannula 09/29/24 10:27 O2 Flow Rate 2 09/29/24 10:27 Course Vital Signs Vital signs: Vital Signs Temperature 99.6 F 09/29/24 10:04 Pulse Rate 77 09/29/24 10:04 Respiratory Rate 20 09/29/24 10:04 Blood Pressure 168/83 H 09/29/24 10:04 Pulse Oximetry 89 L 09/29/24 10:04 Oxygen Delivery Method Room Air 09/29/24 10:04 Temperature 99.6 F 09/29/24 10:04 Pulse Rate 66 09/29/24 10:27 Respiratory Rate 20 09/29/24 10:27 Blood Pressure 168/83 H 09/29/24 10:04 Pulse Oximetry 95 09/29/24 10:27 Oxygen Delivery Method Nasal Cannula 09/29/24 10:27 Oxygen Delivery Flow Rate 2 09/29/24 10:27 Medical Decision Making MDM Narrative Medical decision making narrative: Her workup is negative and her O2 sat is 96% on room air. She has no symptoms and is able to be released. No evidence of pneumonia or heart failure. Findings are discussed with the patient and her family. Differential Diagnosis Differential Diagnosis: Pneumonia, heart failure Lab Data Lab results reviewed: Yes I reviewed the patient's lab results Labs: Lab Results 09/29/24 Range/Units 10:26 WBC 7.5 (4.0-11.0) 10^3/uL RBC 4.94 (4.20-5.40) 10^6/uL Hgb 15.5 (12.0-16.0) g/dL Hct 46.7 (36.0-48.0) % MCV 94.5 (81.0-99.0) fL MCH 31.4 (26.7-34.0) pg MCHC 33.2 (29.9-35.2) g/dL RDW 13.1 (11.0-15.0) % Plt Count 251 (150-450) 10^3/uL MPV 9.0 L (9.5-13.5) fL Neut % (Auto) 69.8 (43.0-75.0) % Lymph % (Auto) 18.6 L (20.5-60.0) % Stearns % (Auto) 9.0 (1.7-12.0) % Eos % (Auto) 1.3 (0.9-7.0) % Baso % (Auto) 0.9 (0.2-2.0) % Neut # (Auto) 5.2 (1.4-6.5) 10^3/uL Lymph # (Auto) 1.4 (1.2-3.8) 10^3/uL [place]s # (Auto) 0.7 (0.3-0.8) 10^3/uL Eos # (Auto) 0.1 (0.0-0.7) 10^3/uL Baso # (Auto) 0.1 (0.0-0.1) 10^3/uL Abs Immat Gran (auto) 0.03 (0.00-0.03) 10^3/uL Imm/Tot Granulo (auto) 0.4 (0.0-0.5) % Sodium 141 (136-145) mmol/L Potassium 4.2 (3.5-5.1) mmol/L Chloride 100 (98-107) mmol/L Carbon Dioxide 38.5 H (21.0-32.0) mmol/L Anion Gap 6.7 BUN 17.0 (7.0-18.0) mg/dL Creatinine 0.83 (0.55-1.02) mg/dL Est GFR ( Amer) >60 (>=60 mL/min/1.73m^2) Est GFR (Non-Af Amer) >60 (>=60 mL/min/1.73m^2) BUN/Creatinine Ratio 20.5 Glucose 117 H (74-106) mg/dL Calcium 9.5 (8.5-10.1) mg/dL Troponin I High Sens 6.8 (4.0-51.3) pg/mL Imaging Data Chest x-ray: Radiologist's impression: No consolidation, no pulmonary edema, pleural effusion, or pneumothorax ECG Data Attestation: I personally reviewed and interpreted this ECG as follows: (EKG on my interpretation shows sinus rhythm with a rate of 68 no acute change) Discharge Plan Discharge Chief Complaint: Upper Respiratory Infection Clinical Impression: No problem, feared complaint unfounded Patient Disposition: Home, Self-Care Time of Disposition Decision: 11:23 Condition: Good Mode of Transportation: Private Vehicle Prescriptions / Home Meds: No Action aspirin [Adult Aspirin Regimen] 81 mg tablet,delayed release (DR/EC) 81 mg PO DAILY atorvastatin 10 mg tablet 10 mg PO .evening latanoprost 0.005 % drops 1 drp OPHTHALMIC (EYE) .qhs Rx Instructions: both eyes dorzolamide 2 % drops 1 drp OPHTHALMIC (EYE) TID Rx Instructions: LEFT EYE brimonidine-timolol 0.2-0.5 % drops 1 drp OPHTHALMIC (EYE) TID Rx Instructions: left eye fluticasone propion-salmeterol [Wixela Inhub] 500-50 mcg/dose blister with device 1 inh inhalation BID Qty: 60 0RF albuterol sulfate 2.5 mg /3 mL (0.083 %) solution for nebulization 2.5 mg inhalation Q4H PRN (Reason: shortness of breath or wheezing) Qty: 180 0RF metoprolol succinate 25 mg tablet extended release 24 hr 25 mg PO DAILY torsemide 20 mg tablet 20 mg PO DAILY PRN (Reason: edema) Print Language: Singaporean Instructions: COPD (Chronic Obstructive Pulmonary Disease) (ED) Referrals: Elías Carey DO [Primary Care Provider] - 1 week
[2024-09-29 10:27] VITALS: PULSE 66; O2SAT 95
[2024-09-29] MEDS: ALBUTEROL SULFATE 2.5 MG/3 ML VIAL NEB IH (10:27)
--- NOTE | 2024-09-29 10:37 | PC.NURSE ---
Pulse Ox. 100% on 2 LPM/NC. Oxygen turned down to 1 LPM/NC. Patient denies any SOB or discomfort.
[2024-09-29 10:40] LABS: Basophils Absolute Auto 0.1 10^3/uL (0.0-0.1); Basophils Percent Auto 0.9 % (0.2-2.0); Eosinophils Absolute Auto 0.1 10^3/uL (0.0-0.7); Eosinophils Percent Auto 1.3 % (0.9-7.0); Hematocrit 46.7 % (36.0-48.0); Hemoglobin 15.5 g/dL (12.0-16.0); Immature Granulocytes Abs Auto 0.03 10^3/uL (0.00-0.03); Immature Granulocytes Pct Auto 0.4 % (0.0-0.5); Lymphocytes Absolute Auto 1.4 10^3/uL (1.2-3.8); Lymphocytes Percent Auto 18.6 % (20.5-60.0); Mean Corpuscular HGB Conc 33.2 g/dL (29.9-35.2); Mean Corpuscular Hemoglobin 31.4 pg (26.7-34.0); Mean Corpuscular Volume 94.5 fL (81.0-99.0); Monocytes Absolute Auto 0.7 10^3/uL (0.3-0.8); Neutrophils Absolute Auto 5.2 10^3/uL (1.4-6.5); Neutrophils Percent Auto 69.8 % (43.0-75.0); Platelet Count 251 10^3/uL (150-450); Red Blood Count 4.94 10^6/uL (4.20-5.40); Red Cell Distribution Width 13.1 % (11.0-15.0); White Blood Count 7.5 10^3/uL (4.0-11.0)
--- NOTE | 2024-09-29 10:46 | PC.NURSE ---
Pulse Ox. 95% on 1 LPM/NC. Denies SOB. Oxygen off at this time.
[2024-09-29 10:59] LABS: Anion Gap 6.7; BUN Creatinine Ratio 20.5; Calcium 9.5 mg/dL (8.5-10.1); Carbon Dioxide 38.5 mmol/L (21.0-32.0); Chloride 100 mmol/L (98-107); Estimated GFR (African America >60 (>=60 mL/min/1.73m^2); Estimated GFR (Non-African Ame >60 (>=60 mL/min/1.73m^2); Glucose 117 mg/dL (74-106); Potassium 4.2 mmol/L (3.5-5.1); Sodium 141 mmol/L (136-145)
[2024-09-29 11:00] LABS: Troponin I High Sensitivity 6.8 pg/mL (4.0-51.3)
--- NOTE | 2024-09-29 11:07 | PC.NURSE ---
Pulse Ox. 94% on room air, talking with family members. Denies any SOB.
== END 2024-09-29 11:36 | disposition home or self-care (01) ==
PROVIDERS: Emergency Provider Emergency Medicine; PCP Internal Medicine
DX: Z03.89 Encounter for observation for other suspected diseases and conditions ruled out (principal)
CPT/HCPCS: 36415; 71045; 80048; 84484; 85025; 93005; 94640; 99285

== ENCOUNTER 2024-10-07 10:01 | Outpatient (OUT) | payer MEDICARE, OTHER, SELFPAY | END 2024-10-07 10:02 | disposition home or self-care (01) | LOC: WC 10:02 | PROVIDERS: PCP Internal Medicine; Visit Provider Physician Assistant | DX: R60.1 Generalized edema (principal); I87.311 Chronic venous hypertension (idiopathic) with ulcer of right lower extremity; L97.812 Non-pressure chronic ulcer of other part of right lower leg with fat layer exposed | CPT/HCPCS: 29581 ==

== ENCOUNTER 2025-03-24 11:03 | Outpatient (OUT) | payer MEDICARE, OTHER, SELFPAY ==
--- OUTSIDE RECORDS SUMMARY | 2025-03-11 16:00 | XMS_ITS | Encounter Summary ---
Author Organization [facility] Address [address] [place] [address] Phone Care Team Providers Care Transportation Department Head Name Role Phone Unavailable Primary Care Provider Unavailabl e Reason for Visit * Reason Comments Eye Problem Referred by eye doct or in [place] (Dr. 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 so she can't see out of left eye Encounter Details Date Type Department Care Team (Late st Contact Info) Description 03/11/2025 4:00 PM EDT Office Visit [address] [place] [phone] Satinder Lisa MD PhD [address] Department of Dermatology [place], [place] [id number] Ocular pemphigoid (Primary Dx) Discharge Disposition: Home Social History Tobacco Use Types Packs/Day Years Used Date Smoking Tobacco: Never Assessed Comments Unknown Sex and Gender Information Value Date Recorded Sex Assigned at Not on file Legal Sex Female 4:30 PM EDT Gender Identity Not on file Sexual Orientation Not on file documented as of this encounter Functional Status * Communicable Disease Screening Question Answer Date of Assessment Author Do you have any of the following new or worsening symptoms? None of these 03/11/2025 3:26 PM EDT Rafael Hernandez documented as of this encounter Progress Notes * Satinder Lisa MD PhD - 03/11/2025 4:00 PM EDT Subjective Regine Garza is a 84 y.o. female who presents for the following: Eye Problem (Referred by eye doctorin [place] (Dr. 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 Patient referred by Dr. Gaitan to Dr. 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 Patient reports she has a history of glaucoma and developed a corneal ulceration in August 2024. Since developing the corneal ulceration she has been on multiple oral abx without improvement. She has subsequently lost all vision on her left eye. Denies oral ulcerations or involvement of her right eye. Review of Systems: No other skin or systemic complaints other than what is documented elsewhere in the note. The following portions of the chart were reviewed this encounter and updated as appropriate: Skin Cancer History Biopsy Log Book No skin cancers from Specimen Tracking. Additional History Specialty Problems None Objective Well appearing patient in no apparent distress; mood and affect are within normal limits. A focused skin examination was performed. All findings within normal limits unless otherwise noted below. Assessment/Plan Skin Exam 1. 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 Patient with no vision in the left eye. 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 -Will perform lower mucosal lip biopsy today for DIF. -If negative, will schedule patient for appointment at [facility] for HUNTER. - Lesion biopsy - Lower Muocsal Lip Type of biopsy: punch Informed consent: discussed and consent obtained Timeout: patient name, date of , surgical site, and procedure verified Procedure prep: Patient was prepped and draped Anesthesia: the lesion was anesthetized in a standard fashion Anesthetic: 1% lidocaine w/ epinephrine 1-100,000 local infiltration Punch size: 4 mm Hemostasis achieved with: pressure Outcome: patient tolerated procedure well Post-procedure details: wound care instructions given Specimen 1 - Dermatopathology- DERM LAB Differential Diagnosis: r/o ocular MMP Check Margins Yes/No?: Comments: Dermpath Lab: Direct Immunofluorescence (specimen in Rafael's media) RTC pending DIF biopsy results. Kaylee Johnson DO PGY-4, Department of Dermatology I saw and evaluated the patient, participating in the delarosa elements of the service. I discussed the findings, assessment and plan with the resident and agree with resident???s findings and plan as documented in the resident's note. I was immediately available for the entirety of the procedure(s) andpresent for the delarosa and critical portions. Satinder Lisa MD PhD documented in this encounter Plan of Treatment Not on file documented as of this encounter Procedures Procedure Name Priority Date/Time Associated Diagnosis Comments SKIN / NAIL BIOPSY Routine 03/12/2025 8: 23 AM EDT Ocular pemphigoid DERMPATH LAB- DERMATOPATHOLOGY Routine 03/11/2025 5:12 PM EDT Ocular pemphigoid documented in this encounter Results * Lesion biopsy (03/12/2025 8:23 AM EDT) Narrative Kaylee Johnson DO - 03/12/2025 8:23 AM EDT Type of biopsy: punch Informed consent: discussed and consent obtained Timeout: patient name, date of , surgical site, and procedure verified Procedure prep: Patient was prepped and draped Anesthesia: the lesion was anesthetized in a standard fashion Anesthetic: 1% lidocaine w/ epinephrine 1-100,000 local infiltration Punch size: 4 mm Hemostasis achieved with: pressure Outcome: patient tolerated procedure well Post-procedure details: wound care instructions given Satinder Lisa MD PhD DERM PROCEDURE ORDERABLES F inal Result * Dermatopathology- DERM LAB (03/11/2025 5:12 PM EDT) Case Report Dermatopathology Case: [id number] Authorizing Provider: Satinder Lisa MD PhD Collected: 03/11/2025 1712 Ordering Location: [facility] Received: 03/11/2025 1742 Pathologist: Kiesha Baker MD Specimen: SKIN DIF, Lower Muocsal Lip 2:15 PM EDT [facility] DERMATOPATHOLOGY [facility] FINAL DIAGNOSIS LOWER MUOCSAL LIP, PUNCH BIOPSY (DIF): NEGATIVE DIRECT IMMUNOFLUORESCENCE TO ALL REACTANTS USED. Electronically signed out by Kiesha Baker MD 2:15 PM EDT [facility] DERMAT[facility] at 1415 EDT By the signature on this report, the individual or group listed as making the Final Interpretation/Diag nosis certifies that they have reviewed this case. 2:15 PM EDT [facility] DERMAT[facility]Y [facility] Clinical History Encounter Diagnosis: Ocular pemphigoid [id number] A Collection Comments: Differential Diagnosis: r/o ocular MMP Check Margins Yes/No?: Comments: Dermpath Lab: Direct Immunofluorescence (specimen in Rafael's media) Finding Region: Left Labial Mucosa of the Lower Lip Specimen Objective: 2:15 PM EDT [facility] DERMATOPATHOLOGY [facility] Microscopic Description Cryostat cut sections were stained with antibodies against IgG, IgM, IgA, C3 and fibrinogen with a negative control. All control slides stain appropriately. 2:15 PM EDT [facility] DERMAT[facility]ATH[facility]Y [facility] Disclaimer One or more of the reagents used to perform assays on this specimen MAY have contained components considered to be analyte specific reagents (ASR's). ASR's have not been cleared or approved by the U.S. Food and Drug Administration. These assays were developed and their performance characteristics determined by the Department of Pathology at [facility]. The FDA does not require this test to go through premarket FDA review. This test is used for clinical purposes. It should not be regarded as investigational or for research. This laboratory is certified under the Clinical Laboratory Improvement Amendments (CLIA) as qualified to perform high complexity clinical laboratory testing. The assays were performed with appropriate positive and negative controls which stained appropriately. 2:15 PM EDT [facility] DERMAT[facility] Gross Description A: A 1 x 1 x 1 mm piece of skin was received in Rafael's medium. It was frozen and cut for the immunofluorescence protocol. 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
--- OUTSIDE RECORDS SUMMARY | 2025-03-24 11:10 | XMS_ITS | Encounter Summary ---
Author Organization [facility] Address [address] [place] [address] Phone Care Team Providers Care Fence Post Driver Name Role Phone Unavailable Primary Care Provider Unavailabl e Encounter Details Date Type Department Care Team (Latest Contact Info) Description 03/11/2025 Travel Social History Tobacco Use Types Packs/Day Years [...] Rafael Hernandez documented as of this encounter Plan of Treatment Not on file documented as of this encounter Visit Diagnoses Not on filedocumented in this encounter
--- OUTSIDE RECORDS SUMMARY | 2025-03-24 11:10 | XMS_ITS | Clinical Summary ---
Author Organization [employer] tem Address [id number] [address] [place] [address] Care Team Providers Care Outsole Cementer Name Role Phone Unavailable Primary Care Provider Unavailabl e Allergies Active Allergy Reactions Criticality Noted Date Comments Sulfa (Sulfonamide Antibiotics) Swelling 12/10 Medications atorvastatin (LIPITOR) 10 mg tablet Take 10 mg by mouth daily. 11 9 Active benazepril (LOTENSIN) 10 mg tablet Take 10 mg by mouth daily. 11 9 Active aspirin 81 mg Take 81 mg by mouth daily. Active bimatoprost (LUMIGAN) 0.01 % ophthalmic drops Administer 1 drop to both eyes nightly. Active brimonidine-nanda olol (COMBIGAN) 0.2-0.5 % ophthalmic solution Administer 1 drop to both eyes 2 (two) times a day. Active Social History Tobacco Use Types Packs/Day Years Used Date Smoking Tobacco: Former Cigarettes 1 40 0 01/02/1967 - 01/02/2007 Smokeless Tobacco: Never Alcohol Use Standard Drinks/Week Comments Never 0 (1 standard drink = 0.6 oz pur e alcohol) AUDIT-C Answer Date Recorded Frequency of Alcohol Consumption Never 01/02/2019 Average Number of Drinks Not on file 019 Frequency of Binge Drinking Not on file 12/10 Childcare Answer Date Recorded Childcare Unknown 12/26/2018 Employment Answer Date Recorded Employment Unknown 12/26/2018 Purpose - Life Answer Date Recorded Purpose and direction in life Unknown Comments Unknown Sex and Gender Information Value Date Recorded Sex Assigned at Not on file Legal Sex Female 9:55 AM EDT Gender Identity Not on file Sexual Orientation Not on file Last Filed Vital Signs Vital Sign Reading Time Taken Comments Blood Pressure 159/88 01/02/2019 9:48 AM EDT Pulse 73 01/02/2019 9:48 AM EDT Temperature - - Respiratory Rate - - Oxygen Saturation - - Inhaled Oxygen Concentration - - Weight 83.5 kg (184 lb) 01/02/2019 9:44 AM EDT Height 170.2 cm (5' 7 ) 01/02/2019 9:44 AM EDT Body Mass Index 28.82 01/02/2019 9:44 AM EDT Plan of Treatment Health Maintenance Due Date Last Done Comments Depression Screening 1952 Tobacco Screening 1952 DTaP,Tdap and Td Vaccines (1 - Tdap) 1958 Zoster (Shingles) Vaccine (1 of 2) 1989 Fall Risk Screening 2004 Influenza Vaccine 02/09/2025 Medical Devices Not on file Insurance MEDICARE [facility]
--- OUTSIDE RECORDS SUMMARY | 2025-03-24 11:10 | XMS_ITS | Encounter Summary ---
Author Organization [facility] Address [address] [place] [address] Phone Care Team Providers Care Information Assurance Manager Name Role Phone Unavailable Primary Care Provider Unavailabl e Encounter Details Date Type Department Care Team (Late st Contact Info) Description 03/18/2025 Results Follow-Up [facility] [address] [place] [address] Kaylee Johnson DO Office Address Unavailable as of 12/10/2023 Dermatopathology- DERM LAB Social History Tobacco Use Types Packs/Day Years Used Date Smoking Tobacco: Never Assessed Comments Unknown Sex and Gender Information Value Date Recorded Sex Assigned at Not on file Legal Sex Female 4:30 PM EDT Gender Identity Not on file Sexual Orientation Not on file documented as of this encounter Plan of Treatment Not on file documented as of this encounter Visit Diagnoses Not on filedocumented in this encounter
--- OUTSIDE RECORDS SUMMARY | 2025-03-24 11:10 | XMS_ITS | Clinical Summary ---
Author Organization [facility] Address [address] [place] [address] Phone Care Team Providers Care Software Publisher Name Role Phone Unavailable Primary Care Provider Unavailabl e Allergies No known active allergies Medications erythromycin (Romycin) 5 mg/gram (0.5 %) ophthalmic ointment APPLY A THIN LAYER TO LEFT EYE 6 TIMES A DAY NEEDED FOR COMFORT 02/21/2025 Active ciprofloxacin (Ciloxan) 0.3 % ophthalmic solution INSTILL 1 DROP INTO LEFT EYE 4 TIMES A DAY DIRECTED 02/03/2025 Active atorvastatin (Lipitor) 10 mg tablet Take 1 tablet (10 mg) by mouth once daily in the evening. 12/05/2024 Active aspirin 81 mg EC tablet Take 1 tablet (81 mg) by mouth once daily. Active metoprolol succinate XL (Toprol-XL) 25 mg 24 hr tablet Take 1 tablet (25 mg) by mouth early in the morning.. 01/16/2025 Active Active Problems No known active problems Encounters Date Type Department Care Team Description 03/18/2025 Results Follow-Up [facility] [address] [place] [address] Kaylee Johnson DO Dermatopathology- DERM LAB 03/11/2025 4:00 PM EDT Office Visit [address] [place] [address] Satinder Lisa MD PhD Ocular pemphigoid (Primary Dx) Discharge Disposition: Home 03/11/2025 Travel from Last 3 Months Social History Tobacco Use Types Packs/Day Years Used Date Smoking Tobacco: Never Assessed Comments Unknown Sex and Gender Information Value Date Recorded Sex Assigned at Not on file Legal Sex Female 4:30 PM EDT Gender Identity Not on file Sexual Orientation Not on file Plan of Treatment Health Maintenance Due Date Last Done Comments Lipid Panel 1940 Medicare Annual Wellness Vis it (AWV) 1940 Diabetes Screening 1957 Zoster Vaccines (1 of 2) 1989 Bone Density Scan 2004 RSV High Risk: (Elderly (60+ ) or Population) (1 - 1-dose 75+ series) 2014 Pneumococcal Vaccine (2 of 2 - PPSV23, PCV20, or PCV21) 01/16/2019 11/21/2018 COVID-19 Vaccine (1 - 2023-2 5 season) 2025 Influenza Vaccine (#1) 2025 06/12/2023 DTaP/Tdap/Td Vaccines (2 - Tdap) 05/05/2028 05/05/20 18 HIB Vaccines Aged Out No longer eligi ble based on patient's age to complete this topic HPV Vaccines Aged Out No longer eligi ble based on patient's age to complete this topic Hepatitis A Vaccines Aged Out No long er eligible based on patient's age to complete this topic Hepatitis B Vaccines Aged Out No long er eligible based on patient's age to complete this topic IPV Vaccines Aged Out No longer eligi ble based on patient's age to complete this topic Meningococcal Vaccine Aged Out No tiana kristie eligible based on patient's age to complete this topic Rotavirus Vaccines Aged Out No longer eligible based on patient's age to complete this topic Procedures Procedure Name Priority Date/Time Associated Diagnosis Comments SKIN / NAIL BIOPSY Routine 03/12/2025 8: 23 AM EDT Ocular pemphigoid DERMPATH LAB- DERMATOPATHOLOGY Routine 03/11/2025 5:12 PM EDT Ocular pemphigoid from Last 3 Months Results * Lesion biopsy (03/12/2025 8:23 AM [...] well Post-procedure details: wound care instructions given us Satinder Lisa MD PhD DERM PROCEDURE ORDERABLES F inal Result * Dermatopathology- DERM LAB (03/11/2025 5:12 PM EDT) Case Report Dermatopathology Case: [id number] Authorizing Provider: Satinder Lisa MD PhD Collected: 03/11/2025 1712 Ordering Location: [facility] Received: 03/11/2025 1742 Pathologist: Kiesha Baker MD Specimen: SKIN DIF, Lower Muocsal Lip 2:15 PM EDT [facility] DERMATOPATHOLOGY LAB FINAL DIAGNOSIS LOWER MUOCSAL LIP, PUNCH BIOPSY (DIF): NEGATIVE DIRECT IMMUNOFLUORESCENCE TO ALL REACTANTS USED. Electronically signed out by Kiesha Baker MD 2:15 PM EDT [facility] DERMATOPATHOLOGY LAB at 1415 EDT By the signature on this report, the individual or group listed as making the Final Interpretation/Diag nosis certifies that they have reviewed this case. 2:15 PM EDT [facility] DERMATOPATHOLOGY LAB Clinical History Encounter Diagnosis: Ocular pemphigoid [id number] A Collection Comments: Differential Diagnosis: r/o ocular MMP Check Margins Yes/No?: Comments: Dermpath Lab: Direct Immunofluorescence (specimen in [employer]) Finding Region: Left Labial Mucosa of the Lower Lip Specimen Objective: 2:15 PM EDT [facility] DERMATOPATHOLOGY LAB Microscopic Description Cryostat cut sections were stained with antibodies against IgG, IgM, IgA, C3 and fibrinogen with a negative control. All control slides stain appropriately. 2:15 PM EDT [facility] DERMATOPATHOLOGY LAB Disclaimer One or more of the reagents used to perform assays on this specimen MAY have contained components considered to be analyte specific reagents (ASR's). ASR's have not been cleared or approved by the U.S. Food and Drug Administration. These assays were developed and their performance characteristics determined by the Department of Pathology at [facility]. The FDA does not require this test [...] controls which stained appropriately. 2:15 PM EDT [facility] DERMATOPATHOLOGY LAB Gross Description A: A 1 x 1 x 1 mm piece of skin was received in [employer] medium. It was frozen and cut for the immunofluorescence protocol. 2:15 PM EDT [facility] DERMATOPATHOLOGY LAB Skin (SKIN DIF) 03/11/2025 5 :12 PM EDT 03/11/2025 5:45 PM EDT Comment:Differential Diagnos is: r/o ocular MMP Check Margins Yes/No?: Comments: Dermpath Lab: Direct Immunofluorescence (specimen in [employer]) Satinder Lisa MD PhD LAB PATHOLOGY ORDERABLES Fi nal Result [facility] DERMATOPATHOLOGY LAB [id number] [place] [address] from Last 3 Months Insurance MEDICARE PART A AND B GENERIC COMMERCIAL MEDICARE PART A AND B GENERIC COMMERCIAL
--- OUTSIDE RECORDS SUMMARY | 2025-03-24 11:13 | XMS_ITS | CCD ---
Author Organization [facility] Care Team Providers Care Router Operator Name Role Phone DR ELÍAS CAREY Admitting Unavailable AURELIO, DR PAL Attending Unavailable AURELIO, DR PAL Primary Care Unavailable AURELIO, DR PAL Admitting Unavailable AURELIO, DR PAL Attending Unavailable AURELIO, DR PAL Primary Care Unavailable AURELIO, DR PAL Consulting Unavailable Elías Carey Unavailable Chris Avitia DPM Attending Provider Julius GERARDO, [place] Attending Provider Chris Avitia Attending Unavailable Chris Avitia Admitting Unavailable [place] Admitting Unavailable [place] Attending Unavailable Chris Avitia DPM Attending Provider [phone] Elías Carey DO Attending Provider Elías Carey DO Primary Care Provider Unavailable Primary Care Provider UnavailTOY Byrd Attending Unavailable Medications Current Medications Medication Drug Class(es) Dates Sig (Normalized) Sig (Original) albuterol 0.417 mg/ml inhalation solution (9 sources) beta2-Adrenergic Agonist Start: 01-11-2024 End: 09-29-2024 Start: 01-11-2024 take 1.25 mg by inha lation every four to six hours Albuterol Sulfate Active 1.25 MG INHALATION EVERY 4-6 HOURS January 11, 2024 12:00am Start: 11-12-2023 End: 01-11-2024 take 2.5 mg by inhalation every four hours Albuterol Sulfate 5 mg/mL solution for nebulization Discontinued 2.5 MG INHALATION Every 4 hours November 12, 2023 12:00am January 11, 2024 10:06am Start: 11-12-2023 End: 01-11-2024 take 2.5 mg by inhalation every four hours Albuterol Sulfate Discontinued 2.5 MG INHALATION Every 4 hours November 12, 2023 12:00am January 11, 2024 10:06am Start: 11-12-2023 take 2.5 mg by inhal ation every four hours Albuterol Sulfate Active 2.5 MG INHALATION Every 4 hours November 12, 2023 12:00am take 2.5 mg by inhal ation every four hours Albuterol Sulfate 2.5 MG/0.5ML 2.5 mg Inhalation every 4 hours Active aspirin 81 mg delayed release oral tablet (15 sources) Platelet Aggregation Inhibitor, Nonsteroidal Anti-inflammatory Drug Start: 11-12-2023 take 1 tablet by mouth once daily atorvastatin 10 mg oral tablet (20 sources) HMG-CoA Reductase Inhibitor Start: 12-05-2024 take 1 tablet by mouth once daily in the evening atorvastatin (Lipitor) 10 mg tablet Take 1 tablet (10 mg) by mouth once daily in the evening. 12/05/2024 Active Start: 12-02-2023 End: 12-05-2024 Start: 12-02-2023 Atorvastatin A ctive 0 .ROUTE .COMPLEX 90 December 02, 2023 8:17am TAKE 1 TABLET IN THE EVENING Start: 11-12-2023 End: 12-02-2023 take 1 tablet by mouth once daily Atorvastatin 10 mg tablet Discontinued 10 MG PO Daily November 12, 2023 12:00am December 02, 2023 8:17am Atorvastatin Raoul cium 10 MG TAKE 1 TABLET IN THE EVENING Active brimonidine tartrate 2 mg/ml / timolol 5 mg/ml ophthalmic solution (8 sources) alpha-Adrenergic Agonist, beta-Adrenergic Ming Start: 11-12-2023 Brimonidine Tart rate-Timolol 0.2-0.5 % 1 drop into affected eye Ophthalmic Twice a day Active cephalexin 500 mg oral capsule (12 sources) Cephalosporin Antibacterial Start: 09-10-2024 take 1 capsule by mouth twice daily Start: 01-16-2023 take 1 capsule by mo [facility] every twenty-four hours Cephalexin 500 MG 1 capsule Orally qd for 14 days Jan, Not-Taking/PRN Start: 01-16-2023 take 1 capsule by mo [facility] every twelve hours Cephalexin 500 MG 1 capsule Orally bid for 14 days Jan, Active ciprofloxacin 3 mg/ml ophthalmic solution (1 source) Quinolone Antimicrobial Start: 02-03-2025 take 1 drop(s) into the eye(s) four times daily ciprofloxacin (Ciloxan) 0.3 % ophthalmic solution INSTILL 1 DROP INTO LEFT EYE 4 TIMES A DAY DIRECTED 02/03/2025 Active Compressor, For Nebulizer device (2 sources) Start: 09-29-2024 Compressor, For Nebulizer device Active 0 .Route 1 September 29, 2024 12:00am As directed dorzolamide 20 mg/ml ophthalmic solution (8 sources) Carbonic Anhydrase Inhibitor Start: 11-12-2023 take 1 drop(s) into the eye(s) three times daily Start: 11-12-2023 take 1 drop(s) into the eye(s) three times daily Dorzolamide Active 1 DROPS OPHTHALMIC Three times daily November 12, 2023 12:00am take 1 drop(s) into the eye(s) three times daily Dorzolamide HCl 2 % 1 drop into affected eye Ophthalmic Three times a day Active erythromycin 0.005 mg/mg ophthalmic ointment (1 source) Macrolide, Macrolide Antimicrobial Start: 02-21-2025 erythromycin (Romycin) 5 mg/gram (0.5 %) ophthalmic ointment APPLY A THIN LAYER TO LEFT EYE 6 TIMES A DAY NEEDED FOR COMFORT 02/21/2025 Active Fluticasone Propion-Salmeterol (8 sources) Corticosteroid, beta2-Adrenergic Agonist Start: 11-12-2023 Start: 11-12-2023 Fluticasone Pr opion-Salmeterol 500-50 mcg/dose blister with device Active 1 INH INHALATION Twice daily November 12, 2023 12:00am Start: 11-12-2023 Fluticasone Pr opion-Salmeterol Active 1 INH INHALATION Twice daily November 12, 2023 12:00am take 1 puff(s) by in halation twice daily Wixela Inhub 500-50 MCG/ACT 1 puff Inhalation Twice a day Active latanoprost 0.05 mg/ml ophthalmic solution (8 sources) Prostaglandin Analog Start: 11-12-2023 take 1 drop(s) into the eye(s) once daily Start: 11-12-2023 take 1 drop(s) into the eye(s) once daily Latanoprost Active 1 DROPS OPHTHALMIC Daily November 12, 2023 12:00am take 1 drop(s) into the eye(s) once daily in the evening Latanoprost 0.005 % 1 drop into affected eye in the evening Ophthalmic Once a day Active 24 hr metoprolol succinate 25 mg extended release oral tablet (11 sources) beta-Adrenergic Ming Start: 01-16-2025 take 1 tablet by mouth every twenty-four hours in the morning metoprolol succinate XL (Toprol-XL) 25 mg 24 hr tablet Take 1 tablet (25 mg) by mouth early in the morning.. 01/16/2025 Active Start: 09-02-2024 take 1 tablet by daquan th once daily Start: 11-12-2023 End: 09-02-2024 take 1 tablet by mouth once daily Metoprolol Succinate 25 mg tablet extended release 24 hr Discontinued 25 MG PO Daily 90 90 November 12, 2023 12:00am September 02, 2024 12:02pm mupirocin 0.02 mg/mg topical ointment (14 sources) RNA Synthetase Inhibitor Antibacterial Start: 11-12-2023 Start: 01-16-2023 Mupirocin 2 % 1 application Externally Twice a day for 14 days Jan, Not-Taking/PRN Completed/Discontinued Medications Medication Drug Class(es) Dates Sig (Normalized) Sig (Original) Albuterol Sulfate 1.25 mg/3 mL solution for nebulization (3 sources) Start: 01-11-2024 End: 09-29-2024 take 1.25 mg by inhalation every four to six hours as needed for wheezing Albuterol Sulfate 1.25 mg/3 mL solution for nebulization Discontinued 1.25 MG INHALATION EVERY 4-6 HOURS as needed for shortness of breath or wheezing 75 January 11, 2024 12:00am September 29, 2024 1:26pm Start: 01-11-2024 take 1.25 mg by inha lation every four to six hours as needed for wheezing Albuterol Sulfate 1.25 mg/3 mL solution for nebulization Active 1.25 MG INHALATION EVERY 4-6 HOURS as needed for shortness of breath or wheezing 75 January 11, 2024 12:00am Albuterol Sulfate 5 mg/mL solution for nebulization (3 sources) Start: 11-12-2023 End: 01-11-2024 take 2.5 mg by inhalation every four hours Albuterol Sulfate 5 mg/mL solution for nebulization Discontinued 2.5 MG INHALATION Every 4 hours November 12, 2023 12:00am January 11, 2024 10:06am benazepril hydrochloride 10 mg oral tablet (20 sources) Angiotensin Converting Enzyme Inhibitor Start: 11-12-2023 End: 11-12-2023 take 1 tablet by mouth once daily Benazepril 10 mg tablet Discontinued 10 MG PO Daily November 12, 2023 12:00am November 12, 2023 11:07am Start: 12-21-2021 take 1 tablet by daquan th once daily as needed Benazepril HCl 10MG Benazepril HCl 10MG, 1 (one) Tablet daily # 90, 12/21/2021, Ref. x3. Active Oral daily for 90 *Pick strength-form from Tenrox for eRX* 13 Dec, 2021 Not-Taking/PRN carvedilol 3.125 mg oral tablet (8 sources) alpha-Adrenergic Ming, beta-Adrenergic Ming Start: 11-12-2023 End: 11-12-2023 take 1 tablet by mouth twice daily Carvedilol 3.125 mg tablet Discontinued 3.125 MG PO Twice daily November 12, 2023 12:00am November 12, 2023 10:32am Start: 07-12-2023 take 1 tablet by daquan th every twelve hours Carvedilol 3.125 MG 1 tablet with food Orally Twice a day for 90 days Jul, Active torsemide 20 mg oral tablet (20 sources) Loop Diuretic Start: 02-04-2024 End: 09-10-2024 take 1 tablet by mouth once daily as needed for edema Torsemide 20 mg tablet Discontinued 0 .ROUTE .COMPLEX 90 September 06, 2024 3:46pm September 10, 2024 2:37pm TAKE 1 TABLET BY MOUTH EVERY DAY NEEDED FOR EDEMA FOR 30 DAYS Start: 01-04-2024 End: 02-04-2024 take 1 tablet by mouth once daily as needed for edema Torsemide 20 mg tablet Discontinued 20 MG PO Daily as needed for edema January 11, 2024 10:13am February 04, 2024 9:30pm Problems Active Problems Problem Classification Problem Date Documented Date Episodic/Chronic Cardiac dysrhythmias (9 sources) Paroxysmal supraventricular tachycardia; Translations: [Paroxysmal supraventricular tachycardia] 11-12-2023 Chronic Chronic obstructive pulmonary disease and bronchiectasis (20 sources) Mucopurulent chronic bronchitis; Translations: [Mucopurulent chronic bronchitis] Chronic Comment on above: Smoking: Age started 17, 1-2ppd, age stopped 59 Chronic ulcer of skin (11 sources) Non-pressure chronic ulcer of right calf limited to breakdown of skin; Translations: [Non-pressure chronic ulcer of right calf limited to breakdown of skin] Chronic Disorders of lipid metabolism (17 sources) Pure hypercholesterolemia; Translations: [Pure hypercholesterolemia, unspecified] Onset: 12-13-2018 Chronic Essential hypertension (20 sources) Essential (primary) hypertension; Translations: [Essential hypertension] Onset: 11-21-2020 Chronic Genitourinary symptoms and ill-defined conditions (3 sources) Urge incontinence of urine; Translations: [Urge incontinence] Chronic Heart valve disorders (15 sources) Aortic stenosis, non-rheumatic ; Translations: [Nonrheumatic aortic (valve) stenosis] Chronic Comment on above: Echo: VENKAT 0.9 m, Deshawn ocity 3.09, Gradient 38/16 - 05/2023,Echo: LVEF 75%, NAHID, normal RV size/function, RVSP 61, - 05/2023 Occlusion or stenosis of precerebral arteries (3 sources) Occlusion and stenosis of bilateral carotid arteries; Translations: [Left carotid artery occlusion] Onset: 11-21-2020 Chronic Other aftercare (1 source) Long-term current use of drug therapy; Translations: [Other intermediate card tender (current) drug therapy] Episodic Other circulatory disease (8 sources) Stenosis of left subclavian artery; Translations: [...] Episodic Other diseases of veins and lymphatics (4 sources) Chronic peripheral venous hypertension; Translations: [Chronic venous hypertension (idiopathic) with ulcer and inflammation of unspecified lower extremity] 09-10-2024 Chronic Other diseases of veins and lymphatics (3 sources) Chronic venous hypertension (idiopathic) with ulcer and inflammation of unspecified lower extremity; Translations: [Chronic venous hypertension with ulcer and inflammation] 09-10-2024 Chronic Other diseases of veins and lymphatics (16 sources) Venous insufficiency (chronic) (peripheral); Translations: [Venous (peripheral) insufficiency, unspecified] Episodic Other diseases of veins and lymphatics (2 sources) Peripheral venous insufficiency; Translations: [Venous insufficiency (chronic) (peripheral)] Episodic Other diseases of veins and lymphatics (6 sources) Venous insufficiency of leg; Translations: [Venous insufficiency (chronic) (peripheral)] 11-10-2023 Episodic Other ear and sense organ disorders (1 source) Hearing loss; Translations: [Unspecified hearing loss, bilateral] Chronic Other ear and sense organ disorders (1 source) Sensorineural hearing loss, unilateral, left ear, with unrestricted hearing on the contralateral side; Translations: [Conductive hearing loss of left ear with normal hearing on right side (disorder)] Chronic Other eye disorders (1 source) Unspecified corneal ulcer, left eye; Translations: [Unspecified corneal ulcer, left eye] Onset: 10-02-2024 Episodic Other inflammatory condition of skin (1 source) 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; 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-2025 Chronic Other injuries and conditions due to [...] and due to atherosclerosis; Translations: [Atherosclerosis of [place] arteries of extremities with intermittent claudication, right leg] Onset: 11-21-2018 Chronic Pulmonary heart disease (12 sources) Pulmonary hypertension; Translations: [Pulmonary hypertension, unspecified] 11-10-2023 Chronic Residual codes; unclassified (1 source) Procedure and treatment not carried out because of patient's decision for unspecified reasons Episodic Spondylosis; intervertebral disc disorders; other back problems (16 sources) Spondylosis without myelopathy or radiculopathy, lumbar region; Translations: [Lumbosacral spondylosis without myelopathy] Onset: 11-22-2020 Chronic Substance-related disorders (11 sources) Tobacco user; Translations: [Nicotine dependence, cigarettes, in remission] Chronic Unclassified (2 sources) Eye Problem; Translations: [Eye Problem] Onset: 03-11-2025 Past or Other Problems Problem Classification Problem Date Documented Da te Episodic/Chronic Other aftercare (4 sources) Other intermediate card tender (current) drug therapy; Translations: [OTH CUSTODIAL CURRENT DRUG THERAPY] Onset: 11-16-2020 Episodic Other and unspecified benign neoplasm (1 source) Benign neoplasm of sigmoid colon; Translations: [Benign neoplasm of sigmoid colon] Onset: 02-09-2019 Episodic Unclassified (1 source) NSVT (nonsustained ventricular tachycardia) I47.29 Results Test Name Value Interpretation Reference Range Facility Dermatopathology- DERM LABOr dered By: Kiesha Baker on 03-16-2025 Disclaimer w3xtwKOqKZWxpWWbMuDk ZnOKOhy2nsDZDivXHnViEu MzNcZnRuYmpcdWMxXGRlZm Cei9gkx885lITze4nsQLQv JzP6kMXyPSHaeZcletl1zY cpAlEoRRAuk4dcbzMsHkWe YXEbVENtDPUhnPmloji0qP tcZjIgXGZuaWwgQXJpYWw7 nW54UFBwgH2roMYqYHmejj UuArT8NCkjIYSfKoP3BMLa jEHrNPTaU1iaBGHgUVoeXX DhYRuhmRIcJEZ3mHhki7A6 bGVzaGVldHtcZjBcZnMyMi EJw4VhXRk9aMgjB0ViFICr VeT9lYTrHJWdNJmdDKUwZV PmulV4xKeehbFpy51qqBJl IKUgHYUvHqHiW79acf3xvL 77cC82RXfcboW8bMLch6Nf y91pf390lH1otKGrJKH1VS PbKTSszNObRVWxAPO7QJDt nQGrE2mtPMDwGV6imnekDK svIZynZTRvgDH7OYUtgQSe W1TfDFLjLUzpLGHyhqh4Qk YdZo7snXOhtUrhEGfmi7fg e9mibLVlDlc9QXVfKhFsYl kcRGdng7Wkb2nwHETpop9j EHA0zTQxhZulq5T6uHGrOZ EruJOsglSaJDIwKuA8RIkr DX6ukl04QXVbMTD0pt6rvJ LfwLtizvVyfRVlHFefI1So VOSjd257ATDoS8KqTRSho9 G4qqPpRvJqOCQrcNB4cbV1 EJFiWCn5iITudvP8iaCtkV GtG2kvqW6mPTXcSO6nhxye u9krJMgpLFubTNYwhSB8jt G5YVQrdNQhL7EasZ0iENIo FVwsCBUtzlc9YhJiYc5jrM VyeTcyMFxzYmtwYWdlXHBn bmNvbnRccGduZGVjXHBsYW luXHBsYWluXGYwXGZzMjRc xHJgCEfdl9EkclQemQylAB CuQCJ0QuT2ZYO0PMZ1SNg1 bBJmHaCvxVkxOFyoPTC7In ClLKm2vMSeOdJkkOv7MOUd JKV7DUa6ERn3iNM5QBJdrC p6YkBjFXU4VhryWYk3xSl8 JRWgsDt3UpZfWAH8MMYsJY KmtIuslIgogH6fNzKnQkAf NnakRD7fRWZvF2bugRLlAP JtPRWjR7bqWpFqgP9epCke MVxjZjJcZnMxNiBPbmUgb3 FmyT4lOBUjEzZ2iYZkpjYq Q9XzkMQrcNUrKQE7ofWhHL Sze7LqGIBjj0V5mnMneaK7 mKwnYZBrFQIgiAUmLX9FRD ZpXPSgRCWrfiHggF4uBUYm q43hy23csqJkGDCtmmXyMM BcGUItvZ2vUxYqWJ1rdFl4 ZSBzcGVjaWZpYyByZWFnZW 24znYwZYUMQ3DgJeLxEBRL H9OabCS8UZKhw8CqZxCzhe LaqFSejpRzHZ4jIIHxiHBd wgJmVOI6XTRqCBMICdYlSX Wum7JsZF7bMTVmvGkvICLn zA5lp5QsCJLzr83vJZRQcS BsYISfg2BnaNFgj6DbTBQc XVYdoZ3nXGLmPD9rZBOeAX hrILFzjtRlkd9aybHxXPVb SBPkS4XnqfrmrJgnyoJwMF Qecs9dnxHeMXG1ZJBfRTKZ EDOcjqFsUQ86GX1mUCHpbH wlmB7kuVMqoQUGtki1UUPw qXU9QRjaw1MgjYGskaGWwS X5IObrnnRiMJUnbSPtxKQY QT88WMQqCQDmHMVYEUAfGN 7jcqWzs2OwokWuwGwxEOS9 kPfuWQYpx6PdpD6lU60kcU rgv0YwqNKprpQbGHZgLWDr RmCAKDVvqlgtlh9nCErnnd R5TFX1NSuvMAZnOBKjOf9r TREmwN4oC6YkRAM9vjElz4 PiCvAGbKQknT21dVJrhn24 MLWnNFEnP5HfJAZtNETqHJ fjcmXsbKzvPGUjg94ycXGr zqCoz0QtreGoTRJrA0ctRQ QyyHOtcOAbc7SfhV7ueREf wlIpGPV8kDUnEOKbuL8fHJ LhuZrzCKAnsU7sR9NrOLjh Nc3qPSFbunnaQB6pbt31LD 9snbDsKV3nukAiCD83gxJq A5fHSLbzSPFblPSqtVsapN PaECGjQZBtkrQxaj1yaDdf lBKtl75jjZJ0iBM2DDHvlL 7nS5YrKJwfXj8dPRDctlyg mWGicQmhJy5vHNBeDCExp9 ImyVZrp1GvBHBbAZVbd0Gs MTFsq5e1uXKjdFVvo2VhvQ H1BMSzc9TepPt3VNRqnwYd jzNyXORztfSjS89ebPRaxH Vvg3plA1hax3DzsO0gZFLs nOVab7ZbnSJ9ZXm4WdahOT J9 [facility] Work Phone: Laboratory comment [place] (Report) u5htwXAnMLRrl8dyQGZtoN FuZzEwMzNcZnRuYmpcdWMx AUooptMoWAnke8TiW3HkMy AwMFxhbnNpXGRlZmxhbmcx TYIjFMS2eeMmGMTmZGeeZC QgLRftYk9atAXnlUdxZmAg WHFrk5vrhcVRQXqnIHTNNQ l3s6fbQBJuRaN5bUQvQFpk H4zqpvIsmMNhX6Ugl7FrRD o9aR12QDWolL8kzCAuBFot tbBuGbF3AOmxDREoYjG1II NplIRpRHZeM2mlVVOhVDsu OISpDTfhiHCrAVZ6gIyil2 I7xBEpfUIfnIxrUmJlUkDx ViGOh6GnYMg8yJuaW4GiXW YbObZ6iKOiYZLtRLnqYJOi VZDsrmS6gF31GWywezV8nT Ugz3Eor42uo579jM8wlCJw XUY1XSFfSCKlyYMaSJRdZW P0RHQgtKSxS3pnSkYzaQUk Y8VmYlWthOKcT7ExUwFvfA TeP2RmJiMpqWLaBLUtwBB8 KPydo039UGO2BcFiOO9iW0 Yud8D9qJ5jmBUwRTIfqLYn WoJkIXSula7iiJJcPYkrr7 KyRJV6psB5dHFobVMaYADp BI17Scntc5EhBrxzFZN9VY MvomJdk4Sry2zgEkOgfrZv R4dkN1MpOIFjPUPvUAGgGj JlvfVtp6Oei9EcwUHmvOp3 j5ofHOKzOSDckXpxb2wfLN E9BCMcQ7X1eUKgz8obZFiy NECpqBY9tsU0SLrnPMIdkd R5aeS7QXaaATQxuBV4mtO0 JRetWHVqBeN7ekK9APqwFC ExXFY3DvJiCPGvg7Mdzdoh FhKbc7EwpRMjXUmmY15ry0 33EUTlpzEkW6bpqDZckkhu rHQafrifBPgyczM3EHXtGH BsYWluXGYxXGZzMjBcbGFu ZzEwMzNcaGljaFxmMVxkYm RdHCLzXTftW0qrQcYxUoPe UVRUvOB0iRGkv8jzqlI8pX SgIW3rQXIolZWkwaMgc5Y8 EDZ8sSSzwH7olVWkSROfbF DzmpLdif67qDFotEJ9LUXr UJPorSZlzO6aAHVjYKLRnX 5hbCBJbnRlcnByZXRhdGlv vj6VdYQdcc4owAIyX5TyhN lmaWVzIHRoYXQgdGhleSBo DGXzJQKizhecf3RmBNUkhQ RkU9JwYH5fBZPjol73 [facility] Work Phone: Pathology report Cancer Narrative Dermatopathology Case: [id number] Authorizing Provider: Toy Lisa MD PhD Collected: 03/11/2025 1712 Ordering Location: [facility] Received: 03/11/2025 1747 Pathologist: Kiesha Baker MD Specimen: SKIN DIF, [place] [facility] Work Phone: Pathology report final diagnosis Narrative n7utmRGkEQUeuPTqDIHbI3 knwmCuEVRjgVFpM9Jxggwz PBppPI9hDB0cpAlfyCYnjF ZqVTPmDoKje1wmm419yXJr c5bxDREStvgsnCb1gJlyG3 6mj4F9SneqM21flJBaNWJ7 VLQvOPEenPOfUAHxVIP6XJ LpwUEsO0dpRNOnOX7ftsap AOgtXJsbODPejHC6OUWnvG ExI7VhFKUzAGnkMWVsgmj7 LhPqJm4auHHkfCpuDNukDC JcLYQvMKldRUZqEaHgJW6N YSUhLONNX8BYVGLIUZDqHM TGKmPTQONXA7CSDHOdOCzP KTpccGFyXGIgTkVHQVRJVk DgEKzBYSNQEDpSVKDDD2ZC QJ3JLLPNPD6PXRMATdHPOV seNtHYH1DXAtSJJCTYTUWz XHBhclxwYXJcbGkyODgwXG HoKdYhWCkqgmB8RXQkWzxr JPgtC5Usq27vL3VtcRyww2 lgddOfXC91iYGyoPKEd0Yi XFkfhaMpWW9BCIcpOMHafn xwYXJkXHBhcn0= [facility] Work Phone: Pathology report gross observation Narrative u1qzaIQkNZFacLCDSPEbCY YkMK9igQxxcWb7fKwuFYBx vvD8nEPeDGwdr6ltJQF5h8 llbiANClxkZWZmMlxwYXBl kgjrEaM4LOnlUXJoghehAH j5ISxhYHHvtDP4OTQpeKOh E7KkQYZuIC0wfzp7ODH3YS kqUEKzZgQ6TDWdKIo1EGVp erV9MancYOo9LPHaMUTthG Ddp5M1LCeon4bmp9JwEMQe NDr5yU8Cp4vcApakG8inal TzgLIcZmJ4hXFaJFAdH95k WPIRN813OLhsq6SgnBPaXG m4VFveGBRvO3TdU7QiZYhu ZyBcXGlkIDUxMDAwIFxcZG FqY1TJCUUgVbGwRXG2JBkk BNl9HNz7TIJMVPA1Xui5Dj tmZGe9NAo4CKepjocdBXn4 ZSCpFZbfaBSrRA9vlKzbLe kcxLjbo3YanQWnYPNpWQjo aWQgNTEwMDIgXFxkYiBPVl HbNcVtVuN5UGc4PORaYCx0 WVvnT1LWFDGoOGQiVRoyOI YlBiA9MIf3VHRDSk4uHWnz PlUvYGIoFgM8GDA9LKZpZR QgMiBcXHNzIDMgXFxmbCBc ZV1ztRutTCHmAU8ZOKYqAG luXGxhbmcwXGYxXGZzMjAg YTheuOApD4klHyQnAhMoVs xwYXIgDQpccGFyZCANClxw tNHecfeoeAXjbYzdRF3pGA zhloJcVLHgoLKUXRM6GR0r IRQWZbamjPYcMLDct9UdIQ xlcGljWHNhMzAgDQpcZjFc ZnMyMCBBIDEgeCAxIHggMS KkiKNheICkWXIcCpDew1hf IHdhcyByZWNlaXZlZCAgaW 7mGMuodYHjE2BseSTmbNEi KiFmWEQyw9VwMDWak6mbis EeoePhJ7W2AVQjmdM6fHVm kU8dgL6yEvh8z1Jtc4Zwkz YvSLSjb2WoT81wKxe+ICAg TDssNMUoD74re8PAh6Wzu2 djtZeyb4BbrBZsMA87INQo wJVcTWK9WL5pfCwdUDUdDZ pccGFyZCANClxwbGFpblxs QG3rMOBHGb7= [facility] Work Phone: Pathology report microscopic observation Narrative Other stain p0xffLHjGUUklWNuOEHaZ6 kfzfDbTMZsoXItW2Vplxgn PNpbEV7eJU5jpKkkrXMpzN BbDIMmMpOru9djk558nIGk a3zeXADXeimvpOh1lEhsI1 5ug8S8OeddA87vqEPcRCD4 PBWhCSTfpQUkCWXfDEB8JH CtgWTaZ9btBWDsPV3pqlbt PHreCZptXKTfmIP3BIJrwQ ZnW4BgRAFtOAzuORJvjmu0 EpIzVu2plWVtrTqsTXueUC LfDXLnCKsyBJDmRmHtM2L5 p0X5SINsQ5P9RBAxK6Htg7 6nHIxtgeMny0VjaV5yUNE1 kYGoKYNqiMxme3DaCIZpCS owuM8ooXKEZ8vaGSuxOLoh SWdBLCBDMyBhbmQgZmlicm kgd0fxjvM5hKJiPQEtczDh FWTardIbU22mnXQepL8hDY KepBAlq037cy8fMRKdqGZj imMdxNKjgeYzqWRjf7PkrK T5TAu7PeuvAVEgtUAtDMir YXJ9 [facility] Work Phone: Pathology report relevant history Narrative j4teuZZtHGOpv7wnQFQnvE FuZzEwMzNcZnRuYmpcdWMx YQybgaEzHSrit8EhJ6VwVj AwMFxhbnNpXGRlZmxhbmcx VNLkZIB8vmXcAYOtVQmfIL RiABbxOa4loXDzuWqqHlTg RXEla0csqhWYLSlvSBXXOP q8l4daBTQiPwM1kQQzZDjw V5kxyfImlSKjY2Gdx2QzLK b7vF34SPRyhC0dpEHiYQmo ndGjErB8VDmjMDAsCiH3FR LvdCJfRKPlU0saDQDwNJld OFSlQSuyfGMuRHI2xBjcj4 M0aSUqxGXqxVwhYeCdPpJq XwTEr7ZaLRc2zDthT5LcAW PqXbB2rIOoFZNzLWhsDMQk OADbyvP2xT11SZxphqM1uR Wob5Qmz95kp489eI6hvKXh TBQ0DAVqCJGlhCNaFUVkZV H1EDCfqNUmV5zeTGMnLL9x muaxRFhhTUvdYDUhaMO7BE KthZZcZ5HsHCXrBCfnZFUy rvn3FsJdIf8hrFZyzSppBQ nhw7lst1qdfAJeZds5SLLo QrVrIxnpXUjet2Ird8ekCC Mlmd7kMLM2dDCxgVdke9R7 bGUxXGRudGJsbnNiZGJcZm I8LQlhUJ1dit89JLUoUCV9 ko0oqJVncNalgxBgwMGpYO bgQ1XbVIUrl964WROuP1Bf PVPyp2X9gsAiKcKkXTKdaK R5kpY8LGJhUEg3lUHeilQ6 dsOjiIEtB8musU3xUZEwZY 4knibev7xcMRzzYZpoFOZt bQU9mfP6ZGZamMCdC4EobT 7cVZTkRDqqWVDrwfw1NvIo Cy1ouJEdpObjDLxtHiysNV dlXHBnbmNvbnRccGduZGVj XHBsYWluXHBsYWluXGYwXG ZzMjRccGFyZFxwbGFpblxm MVxmczIwXGxhbmcxMDMzXG zaH7biJwAiYTTizLwyQXhy g3DqPCQpSIQcCanmviEnXJ PyY744uvVkuiZQkSTsci3w oPV0UW9tpFrdolHpXK8gfD myi8gaWSzgARFzKEVzjthi hVqsrQRxdcqgKLsppdL4TF BsYWluXGYxXGZzMjBcbGFu ZzEwMzNcaGljaFxmMVxkYm FkEKEkELhhZ1ghPuHyQ5Ht XGZzMjAgXHBhciBEMjUtMT ItYFZpAInvXTAdO12lmFTg tVxjtwVKu32hIC65pwxxRY lvQwQeDY50xOFnSAGqFBbn n8Svckfgra5xRR7ygLtlap OKZHFmwXWaUIFsIWEbZL2h jkfujmBhYDKtO33aWbdjTA ciCBGcO93gcLQvtWM4EZKp tZHvYWEbja6zWYDbINqmYo rpWZnqGAO5FOfjrGZod2Af gO9vCEXlCC5eXIKgx8RwN6 jxWQ4eiT1aVUlfzCDnH1Cd eEQqyETyWKOyxxPTuF4guY 5cHZDkA6rdkrbpGXSsfNLH MOGoJTytIDBbx3QsLT7iLT QmTAUXs9zgfhJBzVBdrVPt BVAyKIJrkGIfDO7xtmVlrM y0ETmoEAVkidNyuHadqU5v JgQlKsSnLIpsWS7wYDOnK4 bnyEOpZQCrPQGeC4lrIxBo nU1mxMhmHIukvsNuCKKnck 19 [facility] Work Phone: [facility] Work Phone: Lesion biopsyon 03-12-2025 Type of biopsy: [facility] Informed consent: discussed and consent obtained Timeout: patient name, date of , surgical site, and procedure verified Procedure prep: Patient was prepped and draped Anesthesia: the lesion was anesthetized in a standard fashion Anesthetic: 1% lidocaine w/ epinephrine 1-100,000 local infiltration Punch size: 4 mm Hemostasis achieved with: pressure Outcome: patient tolerated procedure well Post-procedure details: wound care instructions given [facility] Work Phone: [facility] Work Phone: DERMPATH LAB- DERMATOPATHKESHIA Pastor 03-11-2025 DERMPATH LAB- DERMATOPATHOLOGY Pathology report.total SEE COMMENT Dermatopathology Case: [id number] Authorizing Provider: Toy Lisa MD PhD Collected: 03/11/2025 1712 Ordering Location: [facility] Received: 03/11/2025 9605 Pathologist: Kiesha Baker MD Specimen: SKIN DIF, Lower [place] Lip Path report.final diagnosis SEE COMMENT LOWER MUOCSAL LIP, PUNCH BIOPSY (DIF): NEGATIVE DIRECT IMMUNOFLUORESCENCE TO ALL REACTANTS USED. Electronically signed out by Kiesha Baker MD at 1415 EDT Laboratory comment By the signature on this report, the individual or group listed as making the Final Interpretation/Diagnos is certifies that they have reviewed this case. 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 All control slides stain appropriately. LAB AP ASR DISCLAIMER One or more of the reagents used to perform assays on this specimen MAY have contained components considered to be analyte specific reagents (ASR's). ASR's have not been cleared or approved by the [place]. Food and Drug Administration. These assays were developed and their performance characteristics determined by the Department of Pathology at [facility]. The FDA does not require this test to go through premarket FDA review. This test is used for clinical purposes. It should not be regarded as investigational or for research. This laboratory is certified under the Clinical Laboratory Improvement Amendments (CLIA) as qualified to perform high complexity clinical laboratory testing. The assays were performed with appropriate positive and negative controls which stained appropriately. Path report.gross observation SEE COMMENT A: A 1 x 1 x 1 mm piece of skin was received in Rafael's medium. It was frozen and cut for the immunofluorescence protocol. [facility] Culture[facility] 10-02-2024 Eye Culture ORGANISM: Serratia marcescens (O:SERMAR) Quantity of Growth Light Growth Aerobic OH Charge (NMIC56) --- SUSCEPTIBILITY -- ORGANISM: O:SERMAR ANTIBIOTIC INTERPRETATION OH Amikacin S <16 Aztreonam IB <4 Cefepime S <2 Ceftazidime R 16 Ceftazidime/Avibactam S <4 Ceftolozane/Tazobactam S <2 Ceftriaxone R 8 Ciprofloxacin S <0.25 Ertapenem S <0.5 Gentamicin S <2 Levofloxacin S <0.5 Meropenem S <1 Meropenem/Vaborbactam S <2 Piperacillin/Tazobacta m IB <8 Tetracycline R >8 Tigecycline S <2 Tobramycin S 4 Trimethoprim/Sulfameth oxazole S <0.5 S = SUSCEPTIBLE I = INTERMEDIATE R = RESISTANT BLANK = DATA NOT AVAILABLE, OR DRUG NOT ADVISABLE OR TESTED R* = RESISTANCE DUE TO EXTENDED SPECTRUM BETA-LACTAMASES ESBL = EXTENDED SPECTRUM BETA-LACTAMASE TFG = THYMIDINE-DEPENDENT STRAIN KULWINDER = BETA-LACTAMASE POSITIVE IB = INDUCIBLE BETA-LACTAMASE. APPEARS IN PLACE OF 'S' WITH SPECIES KNOWN TO POSSESS INDUCIBLE BETA-LACTAMASES. POTENTIALLY THEY MAY BECOME RESISTANT TO ALL B-LACTAM DRUGS. PERFORMED BY: [place] [address] PATHOLOGIST ORDER PROCESSOR PANDA CORTES M.D. Normal [facility] Comment on above: Performed By: #### M YC CULT #### [facility] , #### CUEYE #### [address] Fungal cultureOrdered By: Byron Madrid on 10-02-2024 Fungus identified Cx Nom (Unsp spec) [facility] Fungus (Mycology) Cultureon 10-02-2024 Fungus (Mycology) Culture LEFT EYE ULCER Final report LEFT EYE ULCER Comment No yeast or mold isolated after 4 weeks. Performed at: - [facility] [address] [id number] Training Consultant: Noel Chen PhD, Phone: [phone] PERFORMED BY: [facility] [address] [place] [address] PATHOLOGIST ORDER PROCESSOR NUBIA ASCENCIO M.D. Normal [facility] Comment on above: Performed By: #### M YC CULT #### [facility] , #### CUEYE #### [address] Basophils Auto (Bld) [#/Vol] on 09-29-2024 Basophils (Bld) [#/Vol] Automated basophil count 0.0-0.1 [facility] Basophils (Bld) [#/Vol] 0.1 10 3/uL 0.0-0.1 [facility] Basophils/100 WBC Auto (Bld) on 09-29-2024 Basophils/100 WBC (Bld) Automated basophil % 0.2-2.0 [facility] Basophils/100 WBC (Bld) 0.9 % 0.2-2.0 [facility] Eosinophils/100 WBC Auto (Bl d)on 09-29-2024 Eosinophils/100 WBC (Bld) Automated eosinophil % 0.9-7.0 [facility] Eosinophils/100 WBC (Bld) 1.3 % 0.9-7.0 [facility] Erythrocyte distribution wid th Auto (RBC) [Ratio]on 09-29-2024 Erythrocyte distribution width (RBC) [Ratio] Erythrocyte distribution width [Ratio] by Automated count 11.0-15.0 [facility] Erythrocyte distribution width (RBC) [Ratio] 13.1 % 11.0-15.0 [facility] Estimated glomerular filtrat ion rate (GFR) non- Americanon 09-29-2024 GFR/1.73 sq M.predicted among non-blacks MDRD (S/P/Bld) [Vol rate/Area] Estimated glomerular filtration rate (GFR) non- >=60 mL/min/1.73m 2 [facility] GFR/1.73 sq M.predicted among non-blacks MDRD (S/P/Bld) [Vol rate/Area] mL/min/{1.73_m2} >=60 mL/min/1.73m 2 [facility] Hematocrit Auto (Bld) [Volum e fraction]on 09-29-2024 Hematocrit (Bld) [Volume fraction] Hematocrit [Volume Fraction] of Blood by Automated count 36.0-48.0 [facility] Hematocrit (Bld) [Volume fraction] 46.7 % 36.0-48.0 [facility] Hemoglobin [Mass/volume] in Bloodon 09-29-2024 Hemoglobin (Bld) [Mass/Vol] Hemoglobin [Mass/volume] in Blood 12.0-16.0 [facility] Hemoglobin (Bld) [Mass/Vol] 15.5 g/dL 12.0-16.0 [facility] Laboratory - Chemistry and C hemistry - challengeon 09-29-2024 Calcium [Mass/Vol] 9.5 mg/dL 8.5-10.1 [facility] Chloride [Moles/Vol] 100 mmol/L 98-107 [facility] CO2 [Moles/Vol] 38.5 mmol/L High 21.0-32.0 [facility] Creatinine [Mass/Vol] 0.83 mg/dL 0.55-1.02 [facility] GFR/1.73 sq M.predicted MDRD (S/P/Bld) [Vol rate/Area] mL/min/{1.73_m2} >=60 mL/min/1.73m 2 [facility] Glucose [Mass/Vol] 117 mg/dL High 74-106 [facility] Potassium [Moles/Vol] 4.2 mmol/L 3.5-5.1 [facility] Sodium [Moles/Vol] 141 mmol/L 136-145 [facility] Urea nitrogen [Mass/Vol] 17.0 mg/dL 7.0-18.0 [facility] Urea nitrogen/Creatinine [Mass ratio] 20.5 mg/mg [facility] Laboratory - Hematology and Cell countson 09-29-2024 Immature granulocytes/100 WBC (Bld) 0.4 % 0.0-0.5 [facility] Leukocytes [#/volume] correc louise for nucleated erythrocytes in Blood by Automated counon 09-29-2024 WBC corrected for nucl RBC Auto (Bld) [#/Vol] Leukocytes [#/volume] corrected for nucleated erythrocytes in Blood by Automated coun 4.0-11.0 [facility] WBC corrected for nucl RBC Auto (Bld) [#/Vol] 7.5 10 3/uL 4.0-11.0 [facility] Lymphocytes Auto (Bld) [#/Vo l]on 09-29-2024 Lymphocytes (Bld) [#/Vol] Lymphocytes [#/volume] in Blood by Automated count 1.2-3.8 [facility] Lymphocytes (Bld) [#/Vol] 1.4 10 3/uL 1.2-3.8 [facility] Lymphocytes/100 WBC Auto (Bl d)on 09-29-2024 Lymphocytes/100 WBC (Bld) Lymphocytes/100 leukocytes in Blood by Automated count Low 20.5-60.0 [facility] Lymphocytes/100 WBC (Bld) 18.6 % Low 20.5-60.0 [facility] MCH Auto (RBC) [Entitic mass ]on 09-29-2024 MCH (RBC) [Entitic mass] MCH [Entitic mass] by Automated count 26.7-34.0 [facility] MCH (RBC) [Entitic mass] 31.4 pg 26.7-34.0 [facility] MCHC Auto (RBC) [Mass/Vol]on 09-29-2024 MCHC (RBC) [Mass/Vol] MCHC [Mass/volume] by Automated count 29.9-35.2 [facility] MCHC (RBC) [Mass/Vol] 33.2 g/dL 29.9-35.2 [facility] MCV Auto (RBC) [Entitic vol] on 09-29-2024 MCV (RBC) [Entitic vol] MCV [Entitic volume] by Automated count 81.0-99.0 [facility] MCV (RBC) [Entitic vol] 94.5 fL 81.0-99.0 [facility] Monocytes Auto (Bld) [#/Vol] on 09-29-2024 Monocytes (Bld) [#/Vol] Automated blood monocyte count 0.3-0.8 [facility] Monocytes (Bld) [#/Vol] 0.7 10 3/uL 0.3-0.8 [facility] Monocytes/100 WBC Auto (Bld) on 09-29-2024 Monocytes/100 WBC (Bld) Automated monocyte % 1.7-12.0 [facility] Monocytes/100 WBC (Bld) 9.0 % 1.7-12.0 [facility] Neutrophils Auto (Bld) [#/Vo l]on 09-29-2024 Neutrophils (Bld) [#/Vol] Neutrophils [#/volume] in Blood by Automated count 1.4-6.5 [facility] Neutrophils (Bld) [#/Vol] 5.2 10 3/uL 1.4-6.5 [facility] Neutrophils/100 WBC Auto (Bl d)on 09-29-2024 Neutrophils/100 WBC (Bld) Automated neutrophil % 43.0-75.0 [facility] Neutrophils/100 WBC (Bld) 69.8 % 43.0-75.0 [facility] No Panel Informationon 09-29 Eosinophils # (Auto) 0.1 10 3/uL 0.0-0.7 [facility] Immature Granulocyte # (Auto) 0.03 10 3/uL 0.00-0.03 [facility] Troponin I High Sensitivity 6.8 pg/mL 4.0-51.3 [facility] Comment on above: CUT-OFF POINTS HAVE BEEN ESTABLISHED BASED ON THE FOURTHUNIVERSAL DEFINITION OF MYOCARDIAL INFARCTION. THE UPPERREFERENCE LIMIT (URL) OF TROPONIN, DEFINED THE 99THPERCENTILE OF cTnI DISTRIBUTION IN A REFERENCE POPULATION,HAS BEEN CONFIRMED THE DECISION THRESHOLD FOR MIDIAGNOSIS.99TH PERCENTILE = 51.4 PG/MLNOTE: HIGH-SENSITIVITY TROPONIN ASSAY IS NOT INTENDED TO BEUSED IN ISOLATION BUT SHOULD BE INTERPRETED IN CONJUNCTIONWITH OTHER DIAGNOSTIC AND CLINICAL INFORMATION. Platelet mean volume Auto (B ld) [Entitic vol]on 09-29-2024 Platelet mean volume (Bld) [Entitic vol] Platelet mean volume [Entitic volume] in Blood by Automated count Low 9.5-13.5 [facility] Platelet mean volume (Bld) [Entitic vol] 9.0 fL Low 9.5-13.5 [facility] Platelets Auto (Bld) [#/Vol] on 09-29-2024 Platelets (Bld) [#/Vol] Platelets [#/volume] in Blood by Automated count 150-450 [facility] Platelets (Bld) [#/Vol] 251 10 3/uL 150-450 [facility] RBC Auto (Bld) [#/Vol]on RBC (Bld) [#/Vol] Erythrocytes [#/volume] in Blood by Automated count 4.20-5.40 [facility] RBC (Bld) [#/Vol] 4.94 10 6/uL 4.20-5.[address] [facility] Serum or plasma anion gap de terminationon 09-29-2024 Anion gap [Moles/Vol] Serum or plasma an ion gap determination [facility] Anion gap [Moles/Vol] 6.7 mmol/L [facility] Rafal 09-19-2024 L -- ---- Specimen: [id number] Received: 09/22/24 Status: ELISABET Blackmon Num: [id number] Spec Type: Surgical Subm Dr: Chris Avitia,DPM, MS Tissues: A Debridement-Skin/Other Than Skin (L ANTERIOR LEG WOUND) Procedures: HE, Gross/Micro L3 ---- Age/ Patient Sex Location Account Attending Physician ---- Regine Garza 84/F [facility] [id number] Chris Avitia DPM, MS ---- SPEC NUM: [id number] RECD: 09/22/24 STATUS: ELISABET SHAYY NUM: [id number] LAW: 09/19/[address] [facility] [address]: Chris Avitia DPM, MS ENTERED: 09/22/[address] [facility] [address]: Jazmine,Lab SPEC TYPE: Surgical DEPT: TIM HUI ENTERED BY: [id number] RECV BY: [id number] ORDERED: HE, Gross/Micro L3 ORDERED: HE, Gross/Micro L3 Pathological Diagnosis Skin, left anterior lower leg, debridement excision: - Marked hyperkeratotic scale or degenerative crust with patchy mildly associated acute inflammation, and at least minor surface infection also suspected - The incompletely shaved epidermis are otherwise devoid of the basal layer or dermal portion for definite assessment Clinical Information Debridement wound L anterior lower leg (chronic venous ulcer x 1 year) Gross Description Part A is received in formalin labeled with the patients name, date of , and L lower leg wound is a marie-august to brown, crusted, ovoid domed portion of skin, 1.7 x 1.3 x 0.5 cm. The specimen is inked black, serially sectioned, and entirely submitted in a single cassette. (1, kaleb, [id number]) FOREST ---- Specimen: [id number] Received: 09/22/24 Status: ELISABET Blackmon Num: [id number] Spec Type: Surgical Subm Dr: Chris Avitia,DPNidia, MS Tissues: A Debridement-Skin/Other Than Skin (L ANTERIOR LEG WOUND) Procedures: Surjit VERAS/Gabby Coyle ---- Patient: Regine Garza [id number] (Continued) ---- Specimen: [id number] Received: 09/22/24 (Continued) Signed (signature on file) Hira Luther MD 09/23/24 1801 ---- Specimen: [id number] Received: 09/22/24 Status: ELISABET Blackmon Num: [id number] Spec Type: Surgical Subm Dr: Chris Avitia,DPM, MS Tissues: A Debridement-Skin/Other Than Skin (L ANTERIOR LEG WOUND) Procedures: RITO Gross/Gabby L3 ---- Patient: Regine Garza [id number] (Continued) ---- Specimen: [id number] Received: 09/22/24 (Continued) Microscopic Description Microscopic examination is performed CPT Codes 69972 ---- ---- Specimen: [id number] Received: 09/22/24 Status: ELISABET Blackmon Num: [id number] Spec Type: Surgical Subm Dr: Chris Avitia,DPM, MS Tissues: A Debridement-Skin/Other Than Skin (L ANTERIOR LEG WOUND) Procedures: RITO, Surjit/Gabby L3 ---- Patient: Regine Garza [id number] (Continued) ---- Signed (signature on file) Hira Luther MD 09/23/24 1801 Normal [facility] CBC AUTO DIFFon 11-16-2020 BASO # 0.0 103/ul Normal 0.0-0.1 [facility] Comment on above: Performed By: #### C BC #### [facility] [address] [address] Miguel Angel Jessica Basophils/100 WBC (Bld) 0.4 % Normal 0.2-2.0 [facility] Comment on above: Performed By: #### C BC #### [facility] [address] [place], [place] [address] Miguel Angel Jessica EO # 0.1 103/ul Normal 0.0-0.7 [facility] Comment on above: Performed By: #### C BC #### [facility] [address] [place] [address] Miguel Angel Jessica Eosinophils/100 WBC (Bld) 1.8 % Normal 0.9-7.0 [facility] Comment on above: Performed By: #### C BC #### [facility] [address] [place] [address] Miguel Angel Jessica Erythrocyte distribution width (RBC) [Ratio] 13.1 % Normal 11.0-15.0 [facility] Comment on above: Performed By: #### C BC #### [facility] [address] [place] [address] Miguel Angel Jessica Hematocrit (Bld) [Volume fraction] 46.2 % Normal 36.0-48.0 [facility] Comment on above: Performed By: #### C BC #### [facility] [address] [place] [address] Miguel Angel Jessica Hemoglobin (Bld) [Mass/Vol] 15.2 g/dL Normal 12.0-16.0 [facility] Comment on above: Performed By: #### C BC #### [facility] [address] [place] [address] Miguel Angel Jessica IG # 0.01 10e3/ul Normal 0.00-0.03 [facility] Comment on above: Performed By: #### C BC #### [facility] [address] [place] [address] Miguel Angel Jessica IG % 0.1 % Normal 0.0-0.5 [facility] Comment on above: Performed By: #### C BC #### [facility] [address] [place] [address] Miguel Angel Jessica LYMPH # 1.5 103/ul Normal 1.2-3.8 [facility] Comment on above: Performed By: #### C BC #### [facility] [address] [place] [address] Miguel Angel Jessica Lymphocytes/100 WBC (Bld) 22.1 % Normal 20.5-60.0 [facility] Comment on above: Performed By: #### C BC #### [facility] [address] [place], [place] [id number] Miguel Angel Lopez MANUAL DIFF REQ NO Normal [facility] Comment on above: Performed By: #### C BC #### [facility] [address] [place], [place] [id number] Miguel Angeljackie Lopez MCH (RBC) [Entitic mass] 31.5 pg Normal 26.7-34.0 [facility] Comment on above: Performed By: #### C BC #### [facility] [address] [place] [address] Miguel Angel Lopez MCHC (RBC) [Mass/Vol] 32.9 g/dL Normal 29.9-35.2 [facility] Comment on above: Performed By: #### C BC #### [facility] [address] [place] [address] Miguel Angeljackie Lopez MCV (RBC) [Entitic vol] 95.9 fL Normal 81.0-99.0 [facility] Comment on above: Performed By: #### C BC #### [facility] [address] [place] [address] Miguel Angel Guerreroen MONO # 0.6 103/ul Normal 0.3-0.8 [facility] Comment on above: Performed By: #### C BC #### [facility] [address] [place] [address] Miguel Angel Jessica Monocytes/100 WBC (Bld) 8.2 % Normal 1.7-12.0 [facility] Comment on above: Performed By: #### C BC #### [facility] [address] [place] [address] Miguel Angel Jessica NEUT # 4.5 103/ul Normal 1.4-6.5 [facility] Comment on above: Performed By: #### C BC #### [facility] [address] [place] [address] Miguel Angel Jessica Neutrophils/100 WBC (Bld) 67.4 % Normal 43.0-75.0 [facility] Comment on above: Performed By: #### C BC #### [facility] [address] [place] [address] Miguel Angel Jessica Platelet mean volume (Bld) [Entitic vol] 9.4 fL Critically low 9.5-13.5 [facility] Comment on above: Performed By: #### C BC #### [facility] [address] [place] [address] Miguel Angel Lopez PLT 159 103/ul Normal 150-450 [facility] Comment on above: Performed By: #### C BC #### [facility] [address] [place] [address] Miguel Angel Jessica RBC 4.82 106/ul Normal 4.20-5.40 [facility] Comment on above: Performed By: #### C BC #### [facility] [address] [place] [address] Miguel Angeljackie Lopez WBC 6.7 103/ul Normal 4.0-11.0 [facility] Comment on above: Performed By: #### C BC #### [facility] [address] [place] [address] Miguel Angel Lopez LIPID PROFILEon 11-16-2020 CHOL-HDL RATIO NORM SEE BELOW Normal [facility] Comment on above: Result Comment: 3.3 - 4.4 LOW RISK 4.4 - 7.1 AVERAGE RISK 7.1 - 11.0 MODERATE RISK >11.0 HIGH RISK Performed By: #### B MP, LIPID, ALT #### [facility] [address] [place] [address] Miguel Angel Jessica Cholesterol [Mass/Vol] 165 mg/dL Normal <=200 [facility] Comment on above: Performed By: #### B MP, LIPID, ALT #### [facility] [address] [place] [address] Miguel Angel Jessica Cholesterol in HDL [Mass/Vol] 67 mg/dL Normal [facility] Comment on above: Performed By: #### B MP, LIPID, ALT #### [facility] [address] [place] [address] Miguel Angel Jessica Cholesterol in LDL [Mass/Vol] 81.8 mg/dL Normal [facility] Comment on above: Performed By: #### B MP, LIPID, ALT #### [facility] [address] [place] [address] Miguel Angel Jessica Cholesterol.total/Chol esterol in HDL [Mass ratio] 2.5 {ratio} Normal [facility] Comment on above: Performed By: #### B MP, LIPID, ALT #### [facility] [address] [place], [place] [address] Miguel Angel Jessica HDL NORMAL > or = 60 mg/dl - LO W CARDIOVASCULAR RISK <40 mg/dl - HIGH CARDIOVASCULAR RISK Normal [facility] Comment on above: Performed By: #### B MP, LIPID, ALT #### [facility] [address] [place], [place] [address] Miguel Angel Jessica LDL CALC NORMAL SEE BELOW Normal [facility] Comment on above: Result Comment: <100 mg/dl OPTIMAL 100 - 129 mg/dl NEAR OR ABOVE OPTIMAL 130 - 159 mg/dl BORDERLINE HIGH 160 - 189 mg/dl HIGH >190 mg/dl VERY HIGH Performed By: #### B MP, LIPID, ALT #### [facility] [address] [id number] Miguel Angel Jessica Triglyceride [Mass/Vol] 81 mg/dL Normal <=150 [facility] Comment on above: Performed By: #### B MP, LIPID, ALT #### [facility] [address] [phone] Miguel Angel Jessica VLDL CALC 16.2 mg/dL Normal [facility] Comment on above: Performed By: #### B MP, LIPID, ALT #### [facility] [address] [phone] Miguel Angel Jessica PROF CHEM 8 (BAS METB)on Anion gap [Moles/Vol] 8.5 mmol/L Normal [facility] Comment on above: Performed By: #### B MP, LIPID, ALT #### [facility] [address] [phone] Miguel Angel Jessica Calcium [Mass/Vol] 9.1 mg/dL Normal 8.4-10.2 [facility] Comment on above: Performed By: #### B MP, LIPID, ALT #### [facility] [address] [phone] Miguel Angel Jessica Chloride [Moles/Vol] 105 mmol/L Normal 98-107 [facility] Comment on above: Performed By: #### B MP, LIPID, ALT #### [facility] [address] [address] Miguel Angel Jessica CO2 [Moles/Vol] 33.7 mmol/L Critically high 22.0-30.0 [facility] Comment on above: Performed By: #### B MP, LIPID, ALT #### [facility] [address] [address] Miguel Angel Jessica Creatinine [Mass/Vol] 0.61 mg/dL Normal 0.52-1.04 [facility] Comment on above: Performed By: #### B MP, LIPID, ALT #### [facility] [address] [place] [address] Miguel Angel Jessica EGFR-AF TONGAN >60 Normal >=60 [facility] Comment on above: Performed By: #### B MP, LIPID, ALT #### [facility] [address] [place] [address] Miguel Angel Jessica EGFR-NON AF TONGAN >60 Normal >=60 [facility] Comment on above: Performed By: #### B MP, LIPID, ALT #### [facility] [address] [place] [address] Miguel Angel Jessica Glucose [Mass/Vol] 108 mg/dL Critically high 74-106 [facility] Comment on above: Performed By: #### B MP, LIPID, ALT #### [facility] [address] [place] [address] Miguel Angel Jessica Potassium [Moles/Vol] 4.2 mmol/L Normal 3.4-5.0 [facility] Comment on above: Performed By: #### B MP, LIPID, ALT #### [facility] [address] [place] [address] Miguel Angel Jessica Sodium [Moles/Vol] 143 mmol/L Normal 137-145 [facility] Comment on above: Performed By: #### B MP, LIPID, ALT #### [facility] [address] [place] [address] Miguel Angel Jessica Urea nitrogen [Mass/Vol] 13.0 mg/dL Normal 7.0-17.0 [facility] Comment on above: Performed By: #### B MP, LIPID, ALT #### [facility] [address] [place], [place] [address] Miguel Angel Lopez Urea nitrogen/Creatinine [Mass ratio] 21.3 mg/mg Normal [facility] Comment on above: Performed By: #### B MP, LIPID, ALT #### [facility] [address] [place], [place] [address] Miguel Angel Lopez SGPTon 11-16-2020 ALT [Catalytic activity/Vol] 16 U/L Normal 9- [facility] Comment on above: Performed By: #### B MP, LIPID, ALT #### [facility] [address] [address] Miguel Angel Lopez Vital Signs Date Time Vital Sign Value Performing Clinician Facility 09-10-2024 14:03-0400 Body height 167.64 cm [facility] 09-10-2024 14:03-0400 Body mass index (BMI) [Ratio] 30.2 kg/m2 [facility] 09-10-2024 14:03-0400 Body weight 84.82 kg [facility] 09-10-2024 14:03-0400 Diastolic blood pressure 89 mm[Hg] [facility] 09-10-2024 14:03-0400 Heart rate 83 /min [facility] 09-10-2024 14:03-0400 Respiratory rate 12 /min [facility] 09-10-2024 14:03-0400 Systolic blood pressure 139 mm[Hg] [facility] 01-11-2024 09:54-0400 Body height 167.64 cm [facility] 01-11-2024 09:54-0400 Body mass index (BMI) [Ratio] 30.5 kg/m2 [facility] 01-11-2024 09:54-0400 Body weight 85.89 kg [facility] 01-11-2024 09:54-0400 Diastolic blood pressure 76 mm[Hg] [facility] 01-11-2024 09:54-0400 Heart rate 93 /min [facility] 01-11-2024 09:54-0400 Respiratory rate 12 /min [facility] 01-11-2024 09:54-0400 Systolic blood pressure 129 mm[Hg] [facility] 11-12-2023 10:19-0400 Body height 167.64 cm [facility] 11-12-2023 10:19-0400 Body mass index (BMI) [Ratio] 31 kg/m2 [facility] 11-12-2023 10:19-0400 Body weight 87.2 kg [facility] 11-12-2023 10:19-0400 Diastolic blood pressure 75 mm[Hg] [facility] 11-12-2023 10:19-0400 Heart rate 85 /min [facility] 11-12-2023 10:19-0400 Respiratory rate 16 /min [facility] 11-12-2023 10:19-0400 Systolic blood pressure 109 mm[Hg] [facility] 07-12-2023 10:00-0500 Body height 167.64 cm Elías Ball Other [facility] [employer] Other 07-12-2023 10:00-0500 Body mass index (BMI) [Ratio] 29.76 kg/m2 Elías Ball Other [facility] [employer] Other 07-12-2023 10:00-0500 Body weight 83.64 kg Elías Ball Other [facility] [employer] Other 07-12-2023 10:00-0500 Diastolic blood pressure 73 mm[Hg] Elías Ball Other [facility] [employer] Other 07-12-2023 10:00-0500 Respiratory rate 12 /min Elías Ball Other [facility] [employer] Other 07-12-2023 10:00-0500 Systolic blood pressure 105 mm[Hg] Elías Ball Other [employer] Other 02-07-2023 11:45-0400 Body height 167.64 cm Elías Ball Other [employer] Other 02-07-2023 11:45-0400 Body mass index (BMI) [Ratio] 29.76 kg/m2 Elías Ball Other [employer] Other 02-07-2023 11:45-0400 Body weight 83.64 kg Elías Ball Other [employer] Other 02-07-2023 11:45-0400 Diastolic blood pressure 75 mm[Hg] Elías Ball Other [employer] Other 02-07-2023 11:45-0400 Respiratory rate 12 /min Elías Ball Other [employer] Other 02-07-2023 11:45-0400 Systolic blood pressure 126 mm[Hg] Elías Ball Other [employer] Other 01-23-2023 11:15-0400 Body height 167.64 cm Elías Ball Other [employer] Other 01-23-2023 11:15-0400 Body mass index (BMI) [Ratio] 29.76 kg/m2 Elías Ball Other [employer] Other 01-23-2023 11:15-0400 Body weight 83.64 kg Elías Ball Other [employer] Other 01-23-2023 11:15-0400 Diastolic blood pressure 81 mm[Hg] Elías Ball Other [employer] Other 01-23-2023 11:15-0400 Respiratory rate 12 /min Elías Ball Other [employer] Other 01-23-2023 11:15-0400 Systolic blood pressure 125 mm[Hg] Elías Carey Other [employer] Other 01-16-2023 15:00-0400 Body height 167.64 cm Elías Carey Other [employer] Other 01-16-2023 15:00-0400 Body mass index (BMI) [Ratio] 29.76 kg/m2 Elías Carey Other [employer] Other 01-16-2023 15:00-0400 Body weight 83.64 kg Elías Carey Other [employer] Other 01-16-2023 15:00-0400 Diastolic blood pressure 83 mm[Hg] Elías Carey Other [employer] Other 01-16-2023 15:00-0400 Respiratory rate 12 /min Elías Carey Other [employer] Other 01-16-2023 15:00-0400 Systolic blood pressure 140 mm[Hg] Elías Carey Other [employer] Other Encounters Encounter Date Encounter Type Care Provider Facility Start: 03-11-2025 End: 03-11-2025 Office outpatient visit 15 minutes Toy Lisa MD PhD Work Phone: [facility] 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) Start: 03-11-2025 End: 03-11-2025 ambulatory TOY LISA [facility] Start: 12-15-2024 End: 12-15-2024 ambulatory Elías Aurelio DO Work Phone: [facility] Work Phone: Start: 12-15-2024 End: 12-15-2024 Patient encounter procedure Elías Carey DO -[facility] Work Phone: Start: 10-02-2024 End: 10-02-2024 ambulatory Kashmir Madrid [facility] Work Phone: Start: 10-02-2024 End: 10-02-2024 Departed Referred Chris Avitia DPM Work Phone: [facility] Work Phone: Start: 09-29-2024 Non-patient / Non-visit Chris Avitia DPM Work Phone: [facility] Work Phone: Start: 09-19-2024 End: 09-19-2024 ambulatory Chris Cook [facility] Work Phone: Start: 09-19-2024 End: 09-19-2024 Departed Referred Chris Avitia DPM Work Phone: [facility] Start: 09-10-2024 End: 09-10-2024 ambulatory [facility] Work Phone: Start: 09-10-2024 End: 09-10-2024 Patient encounter procedure [facility] Work Phone: Start: 03-28-2024 Patient encounter procedure [facility] Start: 01-11-2024 End: 01-11-2024 ambulatory [facility] Work Phone: Start: 01-11-2024 End: 01-11-2024 Patient encounter procedure [facility] Work Phone: Start: 11-12-2023 End: 11-12-2023 ambulatory [facility] Work Phone: Start: 11-12-2023 End: 11-12-2023 Patient encounter procedure [facility] Work Phone: Start: 07-20-2023 End: 07-20-2023 ambulatory Elías Carey Other [employer] Other Start: 07-20-2023 Telephone encounter Elías Carey [facility] Start: 07-12-2023 End: 07-12-2023 ambulatory Elías Carey Other [employer] Other Start: 07-12-2023 Office outpatient visit 25 minutes Elías Ball [facility] Start: 06-05-2023 End: 06-05-2023 ambulatory Elías Carey Other [employer] Other Start: 06-05-2023 Telephone encounter Elías Carey [facility] Start: 06-01-2023 End: 06-01-2023 ambulatory Elías Carey Other [employer] Other Start: 06-01-2023 Telephone encounter Elías aCrey [facility] Start: 05-25-2023 End: 05-25-2023 ambulatory Elías Carey Other [employer] Other Start: 05-25-2023 Telephone encounter Elías Carey [facility] Start: 02-07-2023 End: 02-07-2023 ambulatory Elías Carey Other [employer] Other Start: 02-07-2023 Office outpatient visit 15 minutes Elías Ball [facility] Start: 01-23-2023 End: 01-23-2023 ambulatory Elías Carey Other [employer] Other Start: 01-23-2023 Office outpatient visit 15 minutes Elías Ball [facility] Start: 01-16-2023 End: 01-16-2023 ambulatory Elías Carey Other [employer] Other Start: 01-16-2023 Patient encounter procedure Elías Carey [facility] Start: 11-22-2020 End: 03-11-[address] ELÍAS CAREY Facility:[facility] Start: 11-16-2020 End: 11-17-[address] ELÍAS CAREY Facility:[facility] Start: 11-10-2020 Adult health examination Elías Carey Other [employer] Other Procedures Date Procedure Procedure Detail Performing Clinician Start: 03-12-2025 SKIN / NAIL BIOPSY Kaylee Johnson DO Start: 03-11-2025 Immunofluorescence per spec 1st singl antb stain Toy Lisa MD PhD Work Phone: Start: 10-02-2024 Mycology culture Elías Carey DO Work Phone: Start: 10-02-2024 End: 10-02-2024 Source specific culture Elías Carey DO Work Phone: Start: 11-21-2018 Screening for malignant neoplasm of colon Elías Carey Other Depression screening Annamaria Carey Other Plan of Treatment Date Care Activity Detail Author Start: 05-05-2028 DTaP/Tdap/Td Vaccines (2 - Tdap) DTaP/Tdap/Td Vaccines (2 - Tdap) [facility] Start: 02-09-2025 COVID-19 Vaccine ( season) COVID-19 Vaccine ( season) [facility] Start: 02-09-2025 Influenza vaccination Influenza Vaccine (#1) [facility] Start: 10-02-2024 Eye Culture Eye Culture [facility] Start: 10-02-2024 Fungal Culture Result 1 Fungal Culture Result 1 [facility] Start: 10-02-2024 Mycology Culture Mycology Culture [facility] Start: 10-02-2024 Source specific culture [facility] Start: 10-02-2024 [facility] Start: 01-16-2019 Pneumococcal vaccination Pneumococcal Vaccine (2 of 2 - PPSV23, PCV20, or PCV21) [facility] Start: 2014 RSV High Risk: (Elderly (60+) or Population) (1 - 1-dose 75+ series) RSV High Risk: (Elderly (60+) or Population) (1 - 1-dose 75+ series) [facility] Start: 2004 Screening for osteoporosis Bone Density Scan [facility] Start: 1989 Zoster Vaccines (1 of 2) Zoster Vaccines (1 of 2) [facility] Start: 1957 Diabetes mellitus screening Diabetes Screening [facility] Start: 1940 Lipid panel Lipid Panel [facility] Start: 1940 Medicare Annual Wellness Visit Medicare Annual Wellness Visit (AWV) [facility] Comprehensive metabo lic 2000 panel - Serum or Plasma [facility] Fungus identified in Unspecified specimen by Culture [facility] Immunizations Immunization Date Immunization Notes Care Provider Fa leonila 06-12-2023 influenza virus vaccine, unspecified formulation [facility] 06-12-2023 influenza, high dose seasonal, preservative-free Elías Carey Other [employer] Other 11-21-2018 pneumococcal conjuga te vaccine, 13 valent Elías Carey Other [facility] 05-05-2018 diphtheria, tetanus toxoids and acellular pertussis vaccine, unspecified formulation Elías Carey Other [facility] Payers Date Payer Category Payer Private Health Insurance [employer]IC [employer]ERCIAL Member Subscriber Plan / Payer (Effective 2025-Present) Name: Regine Garza Relation to Subscriber: Self Name: Regine Garza Payer ID: [id number] Type: Not on file Address: [place] [id number] 2024 Self-pay 2004 Medicare MEDICARE PART A AND B [id number] 1960 Medicare [id number] 1960 Unknown [id number] 1939 Unknown [id number] 1939 Unknown [id number] 1939 Unknown [id number] Unknown [id number] Unknown [id number] Social History Date Type Detail Facility Sex Assigned At [employer] [facility] Start: 1940 Sex Assigned At Female F [facility] Tobacco smoking stat [facility] Unknown if ever smoked [facility] Work Phone: Start: 09-10-2024 End: 10-03-2024 Sex Female (finding) [facility] Start: 1940 Sex assigned at Not on file [facility] Work Phone: Start: 03-09-2025 Sex Female [facility] Functional Status Date Assessment Result Facility 03-11-2025 Functional status [facility] 03-11-2025 [facility] Work Phone: Clinical Notes 01-16-2023 to 03-11-2025 Toy Lisa MD PhD - 03/11/2025 4:00 PM EDT Note Date & Type Note Facility 03-11-2025 History of Present illness Narrative Subjective Regine Garza is a 84 y.o. female who presents for the following: Eye Problem (Referred by eye doctor in [place] (Dr. Gaitan)/Started in August - eye scar [...] negative, will schedule patient for appointment at [facility] for HUNTER. - Lesion biopsy - Lower [...] plan with the resident and agree with resident s findings and plan as documented in the resident's note. I was immediately available for the entirety of the procedure(s) and present for the delarosa and critical portions. Toy Lisa MD PhD documented in this encounter [facility] Work Phone: 09-10-2024 Evaluation note Diagnosis Onset Date Resolution Aortic stenosis acute September 1:43pm Chronic bronchitis acute September 10, 2024 1:43pm Chronic venous insufficiency of lower extremity acute September 10, 2024 1:43pm Hypercholesterolemia acute Apri l 2024 1:43pm Hypertension acute September 10, 025 1:43pm Lumbar spondylosis acute September 10, 2024 1:43pm Medicare annual wellness visit, subsequent acute September 10 1:43pm PSVT (paroxysmal supraventricular tachycardia) acute September 10, 2024 1:43pm Pulmonary hypertension acute Ap 2024 1:43pm Venous hypertension, chronic, with ulcer and inflammation acute September 10, 2024 1:43pm [facility] Work Phone: [phone]) 856-723302-01-2024 Evaluation note* Encounter Date Diagnosis Assessment Notes Treatment Notes Treatment Clinical Notes Jul, Chronic obstructive pulmonary disease with [...] on diet and exercise with continued statin therapy.Discussed the beneficial effects of lowering cholesterol in reducing the risk for cerebrovascular and cardiovascular disease. Jul, Cigarette nicotine dependence in remission (ICD-10 - F17.211) Jul, Urge incontinence of urine (ICD-10 - N39.41) Symptoms mild and experiencing ADR w/ Oxybutynin, ok to d/c. 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 Apply Mupirocin daily. 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) Asymptomatic, continue primary prevention measures w/ ASA and Statin therapy Jan, Atherosclerosis of [place] artery of both lower extremities with intermittent [...] in remission (ICD-10 - F17.211) Jan, Screening mammograph y declined (ICD-10 - Z53.20) Instructed on monthly SBE [employer] [facility] [facility] Other Evaluation note* Diagnosis Onset Date Resolution Status Aortic stenosis acute Chronic bronchitis acute Chronic venous insufficiency of lower extremity acute Hypercholesterolemia acute Hypertension acute Lumbar spondylosis acute Pulmonary hypertension [facility] Work Phone: Evaluation note* Diagnosis Onset Date Resolution Status Aortic stenosis acute Chronic bronchitis acute Chronic venous insufficiency of lower extremity acute Hypercholesterolemia acute Hypertension acute Lumbar spondylosis acute PSVT (paroxysmal supraventricular tachycardia) acute Pulmonary hypertension acute Aortic stenosis acute Chronic bronchitis acute Chronic venous insufficiency of lower extremity acute Hypertension acute Pulmonary hypertension [facility] Work Phone: Evaluation note* Diagnosis Onset Date Resolution Status Admit Date Aortic stenosis acute September 1:43pm Chronic bronchitis acute September 10, 2024 1:43pm Chronic venous insufficiency of lower extremity acute September 10, 2024 1:43pm Hypercholesterolemia acute Apri l 2024 1:43pm Hypertension acute September 10, 2 025 1:43pm Lumbar spondylosis acute September 10, 2024 1:43pm Medicare annual wellness vis it, subsequent acute September 10, 2024 1:43pm PSVT (paroxysmal supraventri cular tachycardia) acute September 10, 2024 1:43pm Pulmonary hypertension acute Ap ril 2024 1:43pm Venous hypertension, chronic , with ulcer and inflammation acute September 1:43pm [facility] Work Phone: Evaluation noteNo assessment information available [facility] Work Phone: Evaluation note* 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 documented in this encounter [facility] Work Phone: History general Narrative - Reported* Type Description Date Medical History Essential (primary) hypertension Medical History Benign neoplasm of sigmoid colon Medical History Hyperlipidemia, unspecified Medical History 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 Medical History 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 Medical History Stricture of artery Medical History Lumbar spondylosis Surgical History COLONOSCOPY 2019 Hospitalization History SEE SURGICAL HX [facility] [employer] Other Reason for referral (narrative)No reason for [facility] Work Phone: Summary Purpose Family History No Family History Records Found Relationship Condition Age at Onset Recorded Date/T rex father Unknown Not Specified Unknown sister Malignant neoplasm Unknown Relationship Condition Age at Onset Recorded Date/T rex father Unknown mother Unknown sister Malignant neoplasm Unknown Advance Directives No Advanced Directives Records Found Advance Directive Response Recorded Date/ Time Advance Directives No July 12, 2023 12:07pm Chief Complaint and Reason for Visit Chief Complaint Admit Date Wellness September 10, 2024 1:43 pm Unknown September 19, 2024 9:2 0am Reason for Visit Admit Date Aortic stenosis September 10, 2024 1:43 pm Chronic bronchitis September 10, 2024 1:43 pm Chronic venous insufficiency of lower ex tremity September 10, 2024 1:43pm Hypercholesterolemia September 10, 2024 1:4 3pm Hypertension September 10, 2024 1:43 pm Lumbar spondylosis September 10, 2024 1:43 pm Medicare annual wellness visit, cathryn nt September 10, 2024 1:43pm PSVT (paroxysmal supraventricular tachyc ardia) September 10, 2024 1:43pm Pulmonary hypertension September 10, 2024 1 :43pm Venous hypertension, chronic, with ulcer and inflammation September 10, 2024 1:43pm Chief Complaint 4 month follow up Reason for Visit Aortic stenosis Chronic bronchitis Chronic venous insufficiency of lower extremity Hypercholesterolemia Hypertension Lumbar spondylosis Pulmonary hypertension Chief Complaint 4 month follow up leg swelling, seepage Reason for Visit Aortic stenosis Chronic bronchitis Chronic venous insufficiency of lower extremity Hypercholesterolemia Hypertension Lumbar spondylosis PSVT (paroxysmal supraventricular tachycardia) Pulmonary hypertension Aortic stenosis Chronic bronchitis Chronic venous insufficiency of lower extremity Hypertension Pulmonary hypertension Chief Complaint Admit Date Wellness September 10, 2024 1:43 pm Chief Complaint Admit Date Unknown September 19, 2024 9:2 0am Corneal Ulcer October 02, 2024 11: 00am UA, incont, urgency, burning December 15 1:25pm Additional Source Comments INFORMATION SOURCE (unrecogn ized section and content) DATE CREATED AUTHOR 10/13/2021 [facility] DATE CREATED AUTHOR AUTHOR'S ORGANIZ ATION 11/07/2024 [facility] DATE CREATED AUTHOR AUTHOR'S ORGANIZ ATION 03/19/2025 [facility] REASON FOR VISIT (unrecogniz ed section and content) Reason Comments Eye Problem Referred by eye doct or in [place] (Dr. 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 so she can't see out of left eye Care Teams (unrecognized sec tion and content) Team Status: Active Member Role Status Dates Elías Carey DO Primary Care Provider Active Team Status: Inactive Member Role Status Dates Elías Carey DO Primary Care Provide r, Attending Provider Active Start: November 12, 2023 End: November 12, 2023 Team Status: Inactive Member Role Status Dates Elías Carey DO Primary Care Provide r, Attending Provider Active Start: January 11, 2024 End: January 11, 2024 Team Status: Inactive Member Role Status Dates Elías Carey DO Primary Care Provide r, Attending Provider Active Start: September 10, 2024 End: September 10, 2024 Team Status: Inactive Member Role Status Dates Chris Avitia DPM MS Attending Provider Active Start: September 19, 2024 End: September 19, 2024 Team Status: Active Member Role Status Dates Elías Carey DO Attending Provider Active Sta rt: September 29, 2024 Team Status: Inactive Member Role Status Dates Kashmir Madrid MD Attending Provider Active Start: October 02, 2024 End: October 02, 2024 Team Status: Inactive Member Role Status Dates Elías Carey DO Primary Care Provider Active Start: December 15, 2024 End: December 15, 2024 Elías Carey DO Attending Provider Active Sta rt: December 15, 2024 End: December 15, 2024 Goals (unrecognized section and content) Goals may be documented in a n alternate section FOR RECORDS PERTAINING TO PATIENTS WHO ARE [...] BE BASED ON THE PRIMARY CLINICAL RECORDS. [facility] [employer] [facility]. provides no warranty or guarantee of the accuracy or completeness of information in this document.
[2025-03-24 11:36] LABS: Hematocrit 47.4 % (36.0-48.0); Hemoglobin 15.6 g/dL (12.0-16.0); Immature Granulocytes Abs Auto 0.02 10^3/uL (0.00-0.03); Immature Granulocytes Pct Auto 0.3 % (0.0-0.5); Lymphocytes Absolute Auto 1.4 10^3/uL (1.2-3.8); Mean Corpuscular HGB Conc 32.9 g/dL (29.9-35.2); Mean Corpuscular Hemoglobin 30.8 pg (26.7-34.0); Mean Corpuscular Volume 93.7 fL (81.0-99.0); Platelet Count 202 10^3/uL (150-450); Red Blood Count 5.06 10^6/uL (4.20-5.40); White Blood Count 5.8 10^3/uL (4.0-11.0)
[2025-03-24 11:55] LABS: Alanine Aminotransferase 12 U/L (14-59); Albumin Globulin Ratio 1.0; Albumin Level 4.1 g/dL (3.4-5.0); Alkaline Phosphatase 95 U/L (46-116); Anion Gap 12.8; Aspartate Amino Transferase 15 U/L (15-37); Blood Urea Nitrogen 15.0 mg/dL (7.0-18.0); Calcium 9.8 mg/dL (8.5-10.1); Carbon Dioxide 33.2 mmol/L (21.0-32.0); Chloride 102 mmol/L (98-107); Estimated GFR (African America >60 (>=60 mL/min/1.73m^2); Estimated GFR (Non-African Ame >60 (>=60 mL/min/1.73m^2); Globulin 4.0 g/dL; Glucose 100 mg/dL (74-106); Potassium 4.0 mmol/L (3.5-5.1); Sodium 144 mmol/L (136-145); Total Protein 8.1 g/dL (6.4-8.2)
== END 2025-03-24 11:04 | disposition home or self-care (01) ==
PROVIDERS: PCP Internal Medicine; Visit Provider Internal Medicine
DX: I87.2 Venous insufficiency (chronic) (peripheral) (principal); E78.00 Pure hypercholesterolemia, unspecified; I10 Essential (primary) hypertension
CPT/HCPCS: 36415; 80053; 85025